=== PATIENT | female | born 1960 | race Caucasian/White ===

== ENCOUNTER → 2020-10-05 10:38 | Outpatient (CLI) | payer OTHER, SELFPAY ==
--- NOTE | ~2020-10-05 | MM_ITS ---
EXAMINATION: MM screening avril BI w emeka HISTORY: Screening TECHNIQUE: Craniocaudal and mediolateral oblique 3-D tomosynthesis images were obtained and synthetic 2-D images were generated. CAD analysis was submitted and interpreted. COMPARISON: Comparison to multiple prior studies sequentially, with oldest reviewed study dated 02/19. BREAST PARENCHYMAL COMPOSITION: The breasts are extremely dense, which lowers the sensitivity of mamm ography. FINDINGS: There is no evidence of suspicious mass, calcification, or architectural distortion to sugg est malignancy in either breast. There has been no suspicious interval change. IMPRESSION: 1. No mammographic evidence of malignancy. 2. Recommend routine screening mammography in one year. BI-RADS Category 1: Negative Reviewed, dictated and finalized at location A.
== END ==
PROVIDERS: PCP Internal Medicine; Visit Provider Nurse Practitioner Obstetrics & Gynecology
DX: Z12.31 Encounter for screening mammogram for malignant neoplasm of breast (principal)
CPT/HCPCS: 77063; 77067

== ENCOUNTER → 2021-11-18 08:49 | Outpatient (CLI) | payer OTHER, SELFPAY ==
--- NOTE | ~2021-11-18 | MR_ITS ---
EXAMINATION: MR ankle LT wo con DATE: 11/18/2021 09:31 INDICATION: Posterior tibial tendinitis. Pain in the arch of left foot x2 3 months. No trauma. TECHNIQUE: Magnetic resonance imaging (MRI) of the left ankle was performed without intravenous contr ast. Sequences included sagittal PD-weighted FS FSE, sagittal PD-weighted FSE, coronal PD-weighted FS FSE, coronal PD-weighted FSE, axial PD-weighted FS FSE, and axial PD-weighted FSE. COMPARISON: None. FINDINGS: Medial ankle ligaments: Intact. Lateral ankle ligaments: Intact. Tendons: Longitudinal split type tear of the peroneus brevis, with distal thinning. Fluid within the posterior tibial tendon at the level of the medial malleolus and navicular. The posterior tibial tendon is int act. Remaining dorsi and plantar flexor tendons are normal in appearance. Plantar fascia: Plantar enthesopathy. Proximal thickening of the plantar fascia. Bones/other: No significant marrow edema. No suspicious focal or infiltrative marrow signal. Mild arthritic change in multiple midfoot joints. Fluid: No significant joint or subcutaneous fluid. IMPRESSION: 1. Mild posterior tibial tenosynovitis. 2. Split type tear of the peroneus brevis tendon. 3. Mild midfoot arthritis. 4. Chronic plantar fascial changes. Reviewed, dictated and finalized at location K.
== END ==
PROVIDERS: PCP Internal Medicine; Visit Provider Podiatrist Foot & Ankle Surgery
DX: M76.822 Posterior tibial tendinitis, left leg (principal); M19.072 Primary osteoarthritis, left ankle and foot; M72.2 Plantar fascial fibromatosis; M65.872 Other synovitis and tenosynovitis, left ankle and foot
CPT/HCPCS: 73721

== ENCOUNTER → 2021-12-13 15:29 | Outpatient (CLI) | payer OTHER, SELFPAY ==
--- NOTE | ~2021-12-13 | MM_ITS ---
EXAMINATION: MM screening avril BI w emeka HISTORY: Screening mammogram TECHNIQUE: Craniocaudal and mediolateral oblique 3-D tomosynthesis images were obtained and synthetic 2-D images were generated. Bilateral rotated lateral CC views. CAD analysis was submitted and interp reted. COMPARISON: 10/05/2020, 05/07/2019, 04/05/2018 bilateral screening mammogram examinations BREAST PARENCHYMAL COMPOSITION: The breasts are heterogeneously dense, which may obscure small masses . FINDINGS: There is no evidence of suspicious mass, calcification, or architectural distortion to sugg est malignancy in either breast. There has been no suspicious interval change. IMPRESSION: 1. No mammographic evidence of malignancy. 2. Recommend routine screening mammography in one year. BI-RADS Category 1: Negative Reviewed, dictated and finalized at location A.
--- NOTE | ~2021-12-13 | DEXA_ITS ---
Bone Density Report Name: YAZAN ROBERTS Age: 61 Sex: Female Ethnicity: White Date of : 1960 Indication: postmenopausal; screening for osteoporosis; height loss; Referring Provider: Hilda, Giuliana Espinal Study: Bone densitometry was performed. Exam Date: December 13, 2021 Accession number: [id number] Bone Density: Region BMD T-score Z-score Classification AP Spine (L2, L3, L4) 1.104 0.2 1.8 Normal Femoral Neck (Left) 0.834 -0.1 1.2 Normal Total Hip (Left) 1.019 0.6 1.7 Normal Femoral Neck (Right) 0.909 0.5 1.9 Normal Total Hip (Right) 1.072 1.1 2.1 Normal Total Hip Mean 1.046 0.9 1.9 Normal World Health Organization criteria for BMD impression classify patients as: Normal (T-score at or above -1.0), Osteopenia (T-score between -1.0 and -2.5), or Osteoporosis (T-score at or below -2.5). 10-year Fracture Risk: FRAX not reported because: All T-scores for Spine Total, Hip Total, Femoral Neck at or above -1.0 Previous Exams: Region Exam Age BMD T-score BMD Change BMD Change Date g/cm2 vs Baseline vs Previous AP Spine(L2, L3, L4) 12/13/2021 61 1.104 0.2 -0.003 -0.069 05/07/2019 58 1.172 0.8 0.066* 0.052* 03/13/2017 56 1.121 0.4 0.014 0.014 09/30/2010 49 1.106 0.2 Total Hip(Left) 12/13/2021 61 1.019 0.6 -0.034 0.040 05/07/2019 58 0.979 0.3 -0.074* -0.040* 03/13/2017 56 1.019 0.6 -0.034* -0.034* 09/30/2010 49 1.053 0.9 Total Hip(Right) 12/13/2021 61 1.072 1.1 -0.008 0.029 05/07/2019 58 1.043 0.8 -0.037* -0.021 03/13/2017 56 1.063 1.0 -0.017 -0.017 09/30/2010 49 1.080 1.1 *Denotes significance at 95% confidence level, LSC for AP Spine = 0.022 g/cm2, LSC for Total Hip = 0.027 g/cm2 Clinical Information Provided by Patient: Has used the following medications: Vitamin D, MTV Patient maximum height was 68.0 Menopause Age: 55 Drinks caffeinated beverages Onset of menses at age 10 Number of children 0 Impression: The patient has normal bone mass. No significant bone loss was observed. Discussion: BONE DENSITY IS ABOVE THE MINIMUM DESIRABLE LEVEL AT ALL SKELETAL SITES TESTED. This patient?s bone mineral density is above the minimum desirable level (T-score -1.0 or better) at all sites measured. The patient should f
== END ==
PROVIDERS: PCP Internal Medicine; Visit Provider Nurse Practitioner Obstetrics & Gynecology
DX: Z12.31 Encounter for screening mammogram for malignant neoplasm of breast (principal); Z78.0 Asymptomatic menopausal state
CPT/HCPCS: 77063; 77067; 77080

== ENCOUNTER → 2023-01-17 12:27 | Outpatient (CLI) | payer OTHER, SELFPAY ==
--- NOTE | ~2023-01-17 | MM_ITS ---
EXAMINATION: MM screening avril BI w emeka HISTORY: Screening mammogram TECHNIQUE: Craniocaudal and mediolateral oblique 3-D tomosynthesis images were obtained and synthetic 2-D images were generated. CAD analysis was submitted and interpreted. COMPARISON: 12/13/2021, 10/05/2020 BREAST PARENCHYMAL COMPOSITION: The breasts are heterogeneously dense, which may obscure small masses . FINDINGS: No suspicious mass, calcification, or architectural distortion are identified in either gelacio ast to suggest malignancy. There has been no suspicious interval change. IMPRESSION: 1. No mammographic evidence of malignancy. 2. Recommend routine screening mammography in one year. BI-RADS Category 1: Negative Reviewed, dictated and finalized at location A.
== END ==
PROVIDERS: PCP Internal Medicine; Visit Provider Nurse Practitioner Obstetrics & Gynecology
DX: Z12.31 Encounter for screening mammogram for malignant neoplasm of breast (principal)
CPT/HCPCS: 77063; 77067

== ENCOUNTER 2024-01-14 01:11 | Day surgery (SDC) | payer OTHER, SELFPAY ==
--- NOTE | 2024-01-07 14:41 | PC.NURSE ---
Addendum entered by Finesse Barron RN 01/08/24 12:57: Do not take Losartan day of surgery. Original Note: Report to the Outpatient Waiting Room, entrance under the green pavilion located off [facility], at time _1130_ on date _01/14/24__. Planned Procedure Time: _1330__. Time changes happen often and if your time is changed the preop area will call you the afternoon before. - You and your visitor will be asked to self-screen and do not enter if you have any COVID symptoms. - A mask is optional within the hospital at this time. Patients may have clear liquids (water, carbonated beverages, clear teas, apple juice) until 3 hours prior to surgery with a maximum of 20 ounces. - No food from midnight until time of surgery - Infants may have breast milk until 4 hours before surgery, formula 6 hours prior to surgery. - Children will be allowed to drink immediately following surgery. If applicable, please bring a bottle or sippy cup to assist with drinking. Juice, water, soda, and popsicles are readily available. For infants on formula, please bring formula the day of surgery. Pacifiers are allowed. Take the following medications with a SIP of water the morning of surgery: _Bupropion, Sertraline, and losartan___ DO NOT STOP ANY OF YOUR OTHER PRESCRIPTION MEDICATIONS PRIOR TO SURGERY ?EXCEPT THE FOLLOWING Medications to discontinue per physician _Stop vit D3 and MV on 01/11/24___ Date to take last dose Please no make-up, nail irish, hairspray, perfume, deodorant, or body powder the day of surgery. No jewelry (including any body piercings) or valuables the day of surgery, leave them at home. Please take a shower or bath the night before, or the morning of, surgery with an antibacterial soap. Wear comfortable, loose fitting clothing. Children are encouraged to wear pajamas. - Jewelry must be removed prior to entering the operating room. Rings and piercings that are not removed may be cut off. - The hospital will not accept responsibility for valuables. - Please leave all valuables, including medications, at home the day of surgery. If you are going home after surgery, a licensed route delivery driver must drive you home. - NO public transportation without another adult if you receive anesthesia. - We recommend that an adult stay with you for 24 hours following discharge. - We also recommend that you do not drive, make important decision, drink alcoholic beverages, or take any drugs that were not prescribed by your health care provider for at least 24 hours after your discharge time. For Pediatric surgeries, we recommend two adults accompany the child home. Follow any additional instructions given to you from your surgeon. If you or anyone in your household have experienced Covid symptoms in the past week, please notify your surgeon or the nurse liaison at the phone number below for possible testing. Telephone instructions given to _Gail_and asked if any additional questions and then verbalized understanding. Patient advised to call surgeon office or pre surgery nurse liaison [phone] if any additional questions.
[2024-01-07 14:48] VITALS: BMI 39.0
[2024-01-14 11:40] VITALS: BP 172/78; PULSE 69; RESP 16; TEMP 36.5; O2SAT 98
--- NOTE | 2024-01-14 11:58 | WPDHPUPDATE1 ---
History and Physical Update Update Date/Time: 01/14/24 11:58 History and Physical has been reviewed, including an updated exam of the patient. There are NO changes in the patient's condition. Risks, benefits, and alternatives have been discussed and questions answered. Patient agrees to proceed with procedure.
--- NOTE | 2024-01-14 12:17 | WPDANESEPPF ---
Anes - Initial Pre Proc Eval Procedure: Operation Date: 01/14/24 13:30 Proposed Procedures p Excision Back Cyst - Daryn Priest DO Date/Time: 01/14/24 12:17 Surgeon: Daryn Priest DO Pre Op Diagnosis: 3.5cm sebaceous cyst of back Patient Data Age: 63 Gender: F Height: 1.7 m Weight: 110.6 kg Last Vital Signs Temp 97.7 F 01/14/24 11:40 Pulse 69 01/14/24 11:40 Resp 16 01/14/24 11:40 BP 172/78 H 01/14/24 11:40 Pulse Ox 98 01/14/24 11:40 O2 Del Method Room Air 01/14/24 11:40 Allergies Allergy/AdvReac Type Severity Reaction Status Date / Time Penicillins Allergy Mild RASH Verified 01/14/24 11:51 Sulfa (Sulfonamide Allergy Mild HIVES Verified 01/14/24 11:51 Antibiotics) Home Medications Medication Instructions Recorded Confirmed Type bupropion HCl 150 mg 24 hr tablet, 150 mg PO BID 12/20/23 01/07/24 History extended release cholecalciferol (vitamin D3) 25 25 mcg PO DAILY 12/20/23 01/07/24 History mcg (1,000 unit) capsule losartan 50 mg tablet 50 mg PO DAILY 12/20/23 01/07/24 History multivitamin 1 tablet PO DAILY 12/20/23 01/07/24 History nifedipine 30 mg tablet,extended 30 mg PO DAILY 12/20/23 01/07/24 History release pantoprazole 40 mg tablet,delayed 40 mg PO QAM 12/20/23 01/07/24 History release potassium 99 mg tablet 99 mg PO DAILY 12/20/23 01/08/24 History rosuvastatin 10 mg tablet 10 mg PO DAILY 12/20/23 01/07/24 History sertraline 100 mg tablet 100 mg PO DAILY 12/20/23 01/07/24 History Patient hx anesthesia problems: none Family hx anesthesia problems: none Results Review: All pre-operative results and documents have been reviewed as part of the pre-operative evaluation. FORMERLY [facility] Past Medical History Medical History Allergies Anxiety GERD (gastroesophageal reflux disease) Hypertension Surgical History Surgical History History of left knee replacement 2018 Family History Family History Other Cancer Heart disease Social History Social History Smoking status: Never smoker Alcohol intake: current Alcohol use details: Once a month Substance use: never Living arrangements: with family Spiritual care concerns: No Anes - Eval Final PreProcedure Day of Procedure 01/14/24 12:17 Patient weight: obese Heart: regular rate and rhythm Lungs: clear to auscultation Airway: Mallampati scale class III Neurological: alert and oriented Last oral intake: >/= 8 hours ASA classification: III Emergent: no Anesthetic plan: proceed Anesthesia type and monitoring: general GIVS (may use LMA) and standard monitoring Results Review: All pre-operative results and documents have been reviewed as part of the pre-operative evaluation. Informed Consent: The patient's anesthetic plan and its attendant risks and benefits were discussed with the patient/family/POA. Questions were solicited and answers provided to the satisfaction of the patient/family/POA.
[2024-01-14] MEDS: LACTATED RINGERS 1,000 ML 30 ML IV CONT (12:23)
[2024-01-14 12:30] VITALS: BP 172/78; PULSE 69; RESP 16; TEMP 36.5; O2SAT 98
[2024-01-14] MEDS: ceFAZolin 2 GM/D5W 50 ML 2 GM/50 ML BAG IVPB (13:06)
[2024-01-14] MEDS: LIDO 1%/EPINEPHRINE/PF 1:200,000 30 ML VIAL 10 ML XX (13:20)
[2024-01-14] MEDS: BACITRACIN OINTMENT 15 GM TUBE 1 APPLIC TOPICAL (13:26)
[2024-01-14 13:34] VITALS: BP 123/59; PULSE 86; RESP 16; O2SAT 96
--- NOTE | 2024-01-14 13:35 | W.PM.PROC2 ---
Procedure Note - Detailed Date of Procedure 01/14/24 Pre-op Diagnosis 3.5cm sebaceous cyst of back Post-op Diagnosis Same Procedure Performed Excision of 3.5 cm back cyst Surgeon Daryn Priest, DO Anesthesia MAC and Local (1% lidocaine with epinephrine) Indications This is a 63-year-old woman who presented with a back cyst. About 3 weeks ago she noticed increasing swelling of a small lump and it began turning red and painful. She was found to have an abscess within the cyst which was incised and drained in the office. After this wound healed discussions were made with the patient about options of excision of the cyst versus continued observation. Decision was made to proceed with excision of 3.5 cm back cyst. Findings The 3.5 cm back cyst was completely excised. There appeared to be an old indurated area of scarring and cyst wall within the subcutaneous tissue. No other deeper abnormalities were noted. The cyst was excised completely and sent to the lab for pathology. Description of Procedure Procedure as well as risks, benefits, and alternatives were discussed with the patient. Written consent was obtained and placed in chart prior to procedure. Patient was brought back to surgical suite. She was placed in left lateral decubitus position on the operating table. Time-out was done to confirm patient and procedure. IV sedation was administered by the anesthesia department. Her back area was prepped and draped in sterile fashion using chlorhexidine prep. 1% lidocaine with epinephrine was infiltrated locally around the cyst. A 3.5 cm elliptical incision was made to encompass the entire cyst using 15 blade scalpel. The cyst was sharply excised completely using a 15 blade scalpel. It was removed and sent to the lab for pathology. The wound bed was then inspected. Hemostasis was achieved with electrocautery. No other abnormalities were noted. The skin edges were then reapproximated using 3-0 nylon simple interrupted sutures. Bacitracin ointment was applied followed by 4 x 4 gauze and tape. The patient was then awakened from anesthesia and transferred to recovery. Estimated Blood Loss 5 Pathology Yes (Back cyst) Complications No immediate complications Condition Stable Disposition Same day [facility] Billing Surgery - Charge Forward: Surgery Billing
[2024-01-14 14:00] VITALS: BP 162/65; PULSE 63
[2024-01-14 14:30] VITALS: BP 160/69; PULSE 66; RESP 18
== END 2024-01-14 14:43 | disposition home or self-care (01) ==
PROVIDERS: PCP Internal Medicine; Visit Provider Surgery
PROC: (CPT 11404; principal; 2024-01-14 13:30)
DX: L72.3 Sebaceous cyst (principal); I10 Essential (primary) hypertension; F41.9 Anxiety disorder, unspecified; K21.9 Gastro-esophageal reflux disease without esophagitis; E66.9 Obesity, unspecified; Z68.38 Body mass index [BMI] 38.0-38.9, adult; Z98.890 Other specified postprocedural states; Z80.9 Family history of malignant neoplasm, unspecified; Z82.49 Family history of ischemic heart disease and other diseases of the circulatory system
CPT/HCPCS: 11404; 88305; A9270; J0690; J2704; J3010; J7120

== ENCOUNTER 2024-01-22 01:15 | Day surgery (SDC) | payer OTHER, SELFPAY ==
[2024-01-15 09:24] VITALS: BMI 38.0
--- NOTE | 2024-01-15 09:48 | SUR.PREOP ---
Report to the Outpatient Waiting Room, entrance under the green pavilion located off [facility], at time _0730_ on date _01/22/2024_. Planned Procedure Time: __929__.? Time changes happen often and if your time is changed the preop area will call you the afternoon before. - You and your visitor will be asked to self-screen and do not enter if you have any COVID symptoms. Please call surgeon if you need to reschedule. - A mask is optional within the hospital at this time. Patients may have clear liquids (water, carbonated beverages, clear teas, apple juice) until 3 hours prior to surgery with a maximum of 20 ounces. - No food from midnight until time of surgery and no smoking - Infants may have breast milk until 4 hours before surgery, infant formula 6 hours prior to surgery. - Children will be allowed to drink immediately following surgery.? If applicable, please bring a bottle or sippy cup to assist with drinking. Juice, water, soda, and popsicles are readily available.? For infants on formula, please bring formula the day of surgery.? Pacifiers are allowed. Take only the following medications with a SIP of water on the morning of surgery: _nifedipine, bupropion, sertraline_ DO NOT STOP ANY OF YOUR OTHER PRESCRIPTION MEDICATIONS PRIOR TO SURGERY EXCEPT THE FOLLOWING Medications to discontinue per physician _vitamin D and multivitamin_ Date to take last dose__01/19/2024___ Please no make-up, nail macedonian, hairspray, perfume, deodorant, or body powder the day of surgery.? No jewelry (including any body piercings) or valuables the day of surgery, leave them at home.? Please take a shower or bath the night before, or the morning of, surgery with an antibacterial soap.? Wear comfortable, loose fitting clothing.? Children are encouraged to wear pajamas. - Jewelry must be removed prior to entering the operating room.? Rings and piercings that are not removed may be cut off. - The hospital will not accept responsibility for valuables.? - Please leave all valuables, including medications, at home the day of surgery. If you are going home after surgery, a licensed lift driver must drive you home.? - NO public transportation without another adult if you receive anesthesia. - We recommend that an adult stay with you for 24 hours following discharge. - We also recommend that you do not drive, make important decision, drink alcoholic beverages, or take any drugs that were not prescribed by your health care provider for at least 24 hours after your discharge time. For Pediatric surgeries, we recommend two adults accompany the child home. Follow any additional instructions given to you from your surgeon. Telephone instructions given to _GAIL_and asked if any additional questions and then verbalized understanding. Patient advised to call surgeon office or pre surgery nurse liaison [phone] if any additional questions.
[2024-01-22 08:00] VITALS: BP 151/71; PULSE 94; RESP 14; TEMP 36.1; O2SAT 96
[2024-01-22] MEDS: LACTATED RINGERS 1,000 ML 30 ML IV CONT (08:00)
[2024-01-22] MEDS: ACETAMINOPHEN 500 MG TABLET 1000 MG PO (08:00)
--- NOTE | 2024-01-22 08:51 | PM.IMHP ---
H&P: HPI History of Present Illness Date/Time: 01/22/24 08:51 Chief Complaint: Vaginal bleeding Narrative: this patient is a 63 with postmenopausal bleeding and thickened endometrium. We have agreed to perform hysteroscopy D&C. The patient understands the details of the procedure. The procedure has been explained in detail. She understands the risks. She understands that injuries may occur that result in hospitalization, more surgery, and severe illness. She understands risk of hemorrhage and infection. She denies any chest pain or shortness of breath. She denies any nausea, vomiting, fever, chills. Review of Systems Review of Systems: All systems reviewed & are unremarkable except as noted in HPI and below Constitutional: Constitutional: Denies chills, Denies fatigue, Denies fever(s) and Denies weakness Eyes: Eyes: Denies blurry vision, Denies change in vision, Denies loss of peripheral vision, Denies loss of vision, Denies other visual disturbances and Denies eye pain ENT: Denies vertigo, Denies dizziness, Denies hearing loss, Denies mouth pain, Denies nasal obstruction, Denies neck mass and Denies neck pain Cardiovascular: Cardiovascular: Denies chest pain, Denies diaphoresis, Denies syncope, Denies leg edema and Denies dyspnea Respiratory: Respiratory: Denies chest congestion, Denies cough, Denies hemoptysis, Denies dyspnea and Denies wheezing Gastrointestinal: Gastrointestinal: Denies abdominal pain, Denies constipation, Denies diarrhea, Denies nausea and Denies vomiting Genitourinary: Genitourinary: Denies hematuria, Denies change in libido, Denies nocturia, Denies genital lesions, Denies flank pain and Denies urinary urgency Musculoskeletal: Musculoskeletal: Denies abnormal gait, Denies back pain, Denies myalgias, Denies arthralgias, Denies joint swelling, Denies muscle weakness and Denies neck pain Integumentary/Breasts: Skin/Breast: Denies swelling, Denies breast pain, Denies breast mass, Denies dry skin, Denies nipple discharge, Denies unusual bruising and Denies jaundice Neurologic: Denies Neuro-related abnormal movements, Denies Abnormal speech present, Denies abnormal gait, Denies behavioral changes, Denies confusion, Denies vertigo, Denies dizziness, Denies syncope, Denies loss of vision, Denies memory loss, Denies convulsions and Denies weakness Psychiatric: Psychiatric: Denies abnormal sleep pattern, Denies behavioral changes, Denies change in libido, Denies confusion, Denies depression, Denies anhedonia and Denies memory loss Endocrine: Endocrine: Reports no additional endocrine complaints, Denies change in libido and Denies fatigue Hematologic/Lymphatic: Hematologic/Lymphatic: Reports no additional hematologic/lymphatic complaints Allergic/Immunologic: Allergic/Immunologic: Reports no additional allergic/immunologic complaints and Denies wheezing PMFSH Past Medical History Medical History Allergies Anxiety GERD (gastroesophageal reflux disease) Hypertension Surgical History Surgical History History of left knee replacement 2018 Family History Family History Other Cancer Heart disease Social History Social History Smoking status: Never smoker Second hand tobacco smoke exposure: No Alcohol intake: current Alcohol use details: 1 a month Substance use: never Substance use type: does not use Living arrangements: with family Additional living arrangements comments: ([place]) Spiritual care concerns: No Meds Home Medications and Allergies Home Medications Medication Instructions Recorded Confirmed Type bupropion HCl 150 mg 24 hr tablet, 150 mg PO BID 12/20/23 01/22/24 History extended release cholecalciferol (vitamin D3) 25 25 mc
--- NOTE | 2024-01-22 08:54 | WPDHPUPDATE1 ---
History and Physical Update Update Date/Time: 01/22/24 08:54 History and Physical has been reviewed, including an updated exam of the patient. There are NO changes in the patient's condition. Risks, benefits, and alternatives have been discussed and questions answered. Patient agrees to proceed with procedure.
--- NOTE | 2024-01-22 09:11 | WPDANESEPPF ---
Anes - Initial Pre Proc Eval Procedure: Operation Date: 01/22/24 09:30 Proposed Procedures p Hysteroscopy with Biopsy of Endometrium and/or Polypectomy - Luis Fernando Zambrano MD Date/Time: 01/22/24 09:11 Surgeon: Luis Fernando Zambrano MD Pre Op Diagnosis: thickened endometrium Patient Data Age: 63 Gender: F Height: 1.7 m Weight: 110.6 kg Last Vital Signs Temp 96.9 F L 01/22/24 08:00 Pulse 94 01/22/24 08:00 Resp 14 01/22/24 08:00 BP 151/71 H 01/22/24 08:00 Pulse Ox 96 01/22/24 08:00 O2 Del Method Room Air 01/22/24 08:00 Allergies Allergy/AdvReac Type Severity Reaction Status Date / Time Penicillins Allergy Mild RASH Verified 01/22/24 08:10 Sulfa (Sulfonamide Allergy Mild HIVES Verified 01/22/24 08:10 Antibiotics) Home Medications Medication Instructions Recorded Confirmed Type bupropion HCl 150 mg 24 hr tablet, 150 mg PO BID 12/20/23 01/22/24 History extended release cholecalciferol (vitamin D3) 25 25 mcg PO DAILY 12/20/23 01/15/24 History mcg (1,000 unit) capsule losartan 50 mg tablet 50 mg PO DAILY 12/20/23 01/15/24 History multivitamin 1 tablet PO DAILY 12/20/23 01/15/24 History nifedipine 30 mg tablet,extended 30 mg PO DAILY 12/20/23 01/15/24 History release pantoprazole 40 mg tablet,delayed 40 mg PO QAM 12/20/23 01/15/24 History release rosuvastatin 10 mg tablet 10 mg PO DAILY 12/20/23 01/15/24 History sertraline 100 mg tablet 100 mg PO DAILY 12/20/23 01/22/24 History chlorthalidone 25 mg tablet 25 mg PO DAILY 01/22/24 01/22/24 History Patient hx anesthesia problems: none Family hx anesthesia problems: none Results Review: All pre-operative results and documents have been reviewed as part of the pre-operative evaluation. [facility] Past Medical History Medical History Allergies Anxiety GERD (gastroesophageal reflux disease) Hypertension Surgical History Surgical History History of left knee replacement 2018 Family History Family History Other Cancer Heart disease Social History Social History Smoking status: Never smoker Second hand tobacco smoke exposure: No Alcohol intake: current Alcohol use details: 1 a month Substance use: never Substance use type: does not use Living arrangements: with family Additional living arrangements comments: ([place]) Spiritual care concerns: No Anes - Eval Final PreProcedure Day of Procedure 01/22/24 09:11 Patient weight: obese Heart: regular rate and rhythm Lungs: clear to auscultation Airway: Mallampati scale class II Neurological: alert and oriented Last oral intake: >/= 8 hours ASA classification: III Emergent: no Anesthetic plan: proceed Anesthesia type and monitoring: general GIVS (may use LMA) Results Review: All pre-operative results and documents have been reviewed as part of the pre-operative evaluation. Informed Consent: The patient's anesthetic plan and its attendant risks and benefits were discussed with the patient/family/POA. Questions were solicited and answers provided to the satisfaction of the patient/family/POA.
[2024-01-22] MEDS: LIDOCAINE HCL 1% LOCAL INJ 10 ML VIAL INFILTRATE (09:16)
[2024-01-22 09:56] VITALS: BP 150/82; PULSE 104; RESP 16; O2SAT 96
--- NOTE | 2024-01-22 10:07 | W.PM.PROC2 ---
Procedure Note - Detailed Date of Procedure 01/22/24 Pre-op Diagnosis thickened endometrium Post-op Diagnosis Same ( With submucosal and pedunculated fibroids within the intrauterine cavity) Procedure Performed Hysteroscopy D&C Surgeon Luis Fernando Zambrano MD Anesthesia MAC Indications abnormal uterine bleeding Findings there was 1 large pedunculated fibroid within the intrauterine cavity. It measured about a cm and half. Two submucosal fibroids a smaller size. About 1 cm each. Normal vulva, vagina, cervix. Description of Procedure the patient was taken the operating room. She was prepped and draped in the dorsal lithotomy position after induction of mac anesthesia. A speculum was placed in the vagina. The cervix was grasped with a tenaculum. The cervix was dilated about 1 cm. The hysteroscope was inserted. The intrauterine cavity and endocervix were evaluated. Rotational blade was then used to clear now debris and to transect the stalk of the large uterine fibroid. It would not morcellate the fibroid. Pedunculated fibroid was removed with polyp forceps. Hysteroscope was withdrawn. A medium-size curette was used to curettage all the surfaces were within the endometrial cavity. the sample was collected on Telfa and sent to pathology. The hysteroscope was reinserted and the above findings were noted. Patient tolerated the procedure well. The speculum and tenaculum were removed. She was taken recovery room in stable condition. Sponge lap and needle counts were correct x2. Estimated Blood Loss 40 Drains No Packing No Pathology Yes Complications No immediate complications Condition Stable Disposition PACU
[2024-01-22] MEDS: oxyCODONE HCL (*CRX) 5 MG TAB IR PO (10:25)
[2024-01-22 10:26] VITALS: BP 151/73; PULSE 74; RESP 16
--- NOTE | 2024-01-22 10:48 | W.PM.PROC2 ---
Procedure Note - Detailed Date of Procedure 01/22/24 Pre-op Diagnosis thickened endometrium Post-op Diagnosis Same (Endometrial polyp) Procedure Performed Hysteroscopy D&C, polypectomy Surgeon Luis Fernando Zambrano MD Anesthesia MAC Indications abnormal uterine bleeding Findings 1.5 cm flat , posterior wall polyp. otherwise normal endometrium, normal vulva, vagina, cervix. Description of Procedure the patient was taken the operating room. She was prepped and draped in the dorsal lithotomy position after induction of mac anesthesia. A speculum was placed in the vagina. The cervix was grasped with a tenaculum. The cervix was dilated about 1 cm. The hysteroscope was inserted. The intrauterine cavity and endocervix were evaluated. Rotational blade was inserted in the posterior or uterine wall polyp was resected Hysteroscope was withdrawn. A medium-size curette was used to curettage all the surfaces were within the endometrial cavity. the sample was collected on Telfa and sent to pathology. The hysteroscope was reinserted and the above findings were noted. Patient tolerated the procedure well. The speculum and tenaculum were removed. She was taken recovery room in stable condition. Sponge lap and needle counts were correct x2. Estimated Blood Loss 15 Drains No Packing No Pathology Yes Complications No immediate complications Condition Stable Disposition PACU
[2024-01-22 10:56] VITALS: BP 109/61; PULSE 66; RESP 16
== END 2024-01-22 11:11 | disposition home or self-care (01) ==
PROVIDERS: PCP Internal Medicine; Visit Provider Obstetrics & Gynecology
PROC: 0U5B8ZZ Destruction of Endometrium, Via Natural or Artificial Opening Endoscopic (ICD-10-PCS; CPT 58563; principal; 2024-01-22 09:30)
DX: D25.0 Submucous leiomyoma of uterus (principal); N84.0 Polyp of corpus uteri; N95.0 Postmenopausal bleeding; I10 Essential (primary) hypertension; K21.9 Gastro-esophageal reflux disease without esophagitis; F41.9 Anxiety disorder, unspecified; E66.9 Obesity, unspecified; Z68.38 Body mass index [BMI] 38.0-38.9, adult
CPT/HCPCS: 58558; 88305; A9270; J2250; J2405; J2704; J3010; J7120

== ENCOUNTER 2024-03-31 13:44 | Outpatient (CLI) | payer OTHER, SELFPAY ==
--- NOTE | ~2024-03-31 | MR_ITS ---
EXAMINATION: MR knee RT wo con DATE: 03/31/2024 14:16 INDICATION: Acute onset right knee pain TECHNIQUE: Magnetic resonance imaging (MRI) of the right knee was performed without intravenous contr ast. Sequences included coronal PD-weighted FSE, coronal PD-weighted FS FSE, sagittal T2-weighted FS E, sagittal PD-weighted FS FSE and axial PD weighted fat saturated FSE. COMPARISON: None. FINDINGS: Medial compartment: There is medial extrusion of the medial meniscal body. There is increased intrasubstance signal in th e body the medial meniscus which is not amenable to contact the articular surface to meet criteria fo r meniscal tear but which would be consistent with mucoid degeneration. There is partial thickness ch ondral ulceration along the anterior to central weightbearing medial femoral condyle. There is deep c hondral fissuring at the medial side of the junction of the central to posterior weightbearing medial femoral condyle with small focus of underlying subarticular edema-like signal change. Shallow chondr al ulceration at the central to anterior aspect of the medial tibial plateau. Lateral compartment: Lateral meniscus is normal. Deep chondral fissuring without degenerative subchondral changes at the c entral aspect lateral tibial plateau and along the anterior weightbearing lateral femoral condyle. Patellofemoral compartment: Deep chondral ulceration and fissuring live small foci of subarticular edema-like signal change at th e medial patellar facet and apical ridge. Less severe partial thickness chondral fissuring without de generative subchondral changes at the medial side of the lateral patellar facet. Deep chondral ulcera tion with underlying cortical irregularity and prominent subarticular edema-like signal change at the lateral trochlea and trochlear groove and with additional subarticular cystlike change at the medial trochlea. Ligaments and tendons: Anterior and posterior cruciate ligaments are normal. The medial collateral ligament and fibular violeta ateral ligament complex are normal. Tolerated tendon is normal. Mild distal quadriceps tendinopathy w ithout tear. The visualized medial and lateral hamstring tendons as well as the iliotibial band are n ormal. Fluid: Small right knee joint effusion. No loose osteochondral bodies identified. Moderate to large Tolentino's cyst measuring 6.2 cm craniocaudally and 1.7 x 1.8 cm in maximal orthogonal dimensions. Osseous/other: Bone alignment is normal. No fracture or pathologic marrow replacing process. Subcutaneous varicositi es most prominent anterior and medial to the knee and distal thigh. IMPRESSION: 1. Mild medial extrusion of the medial meniscal body with mucoid degeneration but without definitive distal tear. 2. Mild tricompartmental osteoarthritis with regions of high-grade chondromalacia in the medial and p atellofemoral compartments and moderate to high-grade chondromalacia at the lateral compartment. The latter. Moderate to large Tolentino's cyst. Reviewed, dictated and finalized at location B. [employer] IMPRESSION: 1. Mild medial extrusion of the medial meniscal body with mucoid degeneration b ut without definitive distal tear. 2. Mild tricompartmental osteoarthritis with regions of high-grade chondromalac ia in the medial and patellofemoral compartments and moderate to high-grade cho ndromalacia at the lateral compartment. The latter. Moderate to large Tolentino's c yst.
== END 2024-03-31 13:45 | disposition home or self-care (01) ==
LOC: MICIMG 13:45
DX: M17.11 Unilateral primary osteoarthritis, right knee (principal)
CPT/HCPCS: 73721

== ENCOUNTER 2024-09-11 14:02 | Outpatient (CLI) | payer OTHER, SELFPAY ==
--- NOTE | ~2024-09-11 | MM_ITS ---
EXAMINATION: MM screening avril BI w emeka HISTORY: Screening TECHNIQUE: Craniocaudal and mediolateral oblique 3-D tomosynthesis images were obtained and synthetic 2-D images were generated. CAD analysis was submitted and interpreted. COMPARISON: Comparison to multiple prior studies sequentially, with oldest reviewed study dated 02/19. BREAST PARENCHYMAL COMPOSITION: Dense: The breasts are extremely dense, which lowers the sensitivity of mammography. FINDINGS: There are developing asymmetries centered in the lower inner quadrant of the right breast, middle third and medial aspect of the left breast on CC view. There are no suspicious calcifications or architectural distortion. IMPRESSION: 1. Developing bilateral breast asymmetries. 2. Additional mammographic views and possible breast ultrasound are recommended. BI-RADS Category 0: Incomplete: Needs additional imaging evaluation. Reviewed, dictated and finalized at location A. IMPRESSION: 1. Developing bilateral breast asymmetries. 2. Additional mammographic views and possible breast ultrasound are recommended . BI-RADS Category 0: Incomplete: Needs additional imaging evaluation.
== END 2024-09-11 14:03 | disposition home or self-care (01) ==
LOC: MICIMG 14:03
PROVIDERS: PCP Internal Medicine; Visit Provider Nurse Practitioner
DX: Z12.31 Encounter for screening mammogram for malignant neoplasm of breast (principal); R92.8 Other abnormal and inconclusive findings on diagnostic imaging of breast
CPT/HCPCS: 77063; 77067

== ENCOUNTER 2024-10-02 08:56 | Outpatient (CLI) | payer OTHER, SELFPAY ==
--- NOTE | ~2024-10-02 | MMUS_ITS ---
EXAMINATION: US breast BI complete, MM diagnostic avril BI w emeka HISTORY: Follow-up breast asymmetries TECHNIQUE: Additional 3-D tomosynthesis images of the breasts were performed and synthetic 2-D images were generated. CAD analysis was submitted and interpreted. High resolution bilateral complete breas t ultrasound was performed. COMPARISON: Comparison to multiple prior studies sequentially, with oldest reviewed study dated 03/21. BREAST PARENCHYMAL COMPOSITION: Dense: The breasts are heterogeneously dense, which may obscure small masses FINDINGS: MAMMOGRAPHIC FINDINGS: There are no suspicious masses, calcifications or architectural distortion in either breast to sugges t malignancy. ULTRASOUND: Complete US of all 4 quadrants of the breast/s and retroareolar region was reviewed. There are bilate ral breast cysts. At 5:00 in the right breast, 2 cm from the nipple there is an oval circumscribed pa rallel oriented hypoechoic 9 mm mass without internal vascularity or posterior features, likely benig n. IMPRESSION: 1. Probable benign right breast mass at 5:00, 2 cm from the nipple. 2. Recommend 6 month follow-up Limited right breast ultrasound. BI-RADS category 3, probably benign findings. Reviewed, dictated and finalized at location A. IMPRESSION: 1. Probable benign right breast mass at 5:00, 2 cm from the nipple. 2. Recommend 6 month follow-up Limited right breast ultrasound. BI-RADS category 3, probably benign findings.
== END 2024-10-02 08:57 | disposition home or self-care (01) ==
LOC: MICIMG 08:56
PROVIDERS: PCP Internal Medicine; Visit Provider Nurse Practitioner
DX: R92.2 Inconclusive mammogram (principal)
CPT/HCPCS: 76641; 77062; 77066; G0279

== ENCOUNTER 2024-11-11 10:03 | Outpatient (CLI) | payer MEDICARE, SELFPAY ==
--- NOTE | ~2024-11-11 | US_ITS ---
EXAMINATION TYPE: US breast RT limited COMPARISON: 10/02/2024 REASON FOR STUDY: N63.13 - Unspecified lump in the right breast, lower oute... TECHNIQUE: Targeted sonographic evaluation of the right breast was performed. INTERPRETATION: At the 7:00-o'clock position right breast contents aneurysm level, there is a 3.5 x 1.3 x 2.7 cm para llel isoechoic somewhat masslike area, which could reflect prominent fibroglandular tissue versus pos sibly lipoma. IMPRESSION: 3.5 x 1.3 x 2.7 cm area of prominent fibroglandular tissue versus possibly lipoma. No suspicious mass seen. BI-RADS CATEGORY: BI-RADS 2: Benign Reviewed, dictated and finalized at location . IMPRESSION: 3.5 x 1.3 x 2.7 cm area of prominent fibroglandular tissue versus possibly lipo ma. No suspicious mass seen. BI-RADS CATEGORY: BI-RADS 2: Benign
== END 2024-11-11 10:04 | disposition home or self-care (01) ==
LOC: MICIMG 10:05
PROVIDERS: PCP Internal Medicine; Visit Provider Surgery
DX: N63.13 Unspecified lump in the right breast, lower outer quadrant (principal)
CPT/HCPCS: 76642

== ENCOUNTER 2025-04-06 09:33 | Outpatient (CLI) | payer MEDICARE, SELFPAY ==
--- NOTE | ~2025-04-06 | MR_ITS ---
MR breast BI wo/w con INDICATION:64 year old female with elevated lifetime risk of breast cancer presents for high-risk screening bilateral breast MRI. Most recent screening mammogram and diagnostic right breast mammogram suggests a probably benign right breast mass at 5:00 for which a short-term follow-up in 6 months with right breast ultrasound was recommended. TECHNIQUE: MRI of the breasts perform using standard protocol pre-and post IV contrast with the following sequences: Axial T2 STIR, axial T1, axial vibrant T1 with fat suppression precontrast and multiphasic postcontrast. 20 cc MultiHance administered intravenously. COMPARISON: Mammogram and ultrasound dated 10/02/2024 and 11/11/2024. FINDINGS: There is Heterogeneous fibroglandular tissue that demonstrates Mild and is Symmetric. Right breast: There are no abnormalities on the precontrast sequences. There is extensive background parenchymal nodular enhancement pattern. No enhancing spiculated lesions following contrast administration. No areas of enhancement meeting threshold criteria on CAD analysis. Nipple areolar complex is normal in appearance. No evidence of signal abnormalities in the axillary or internal mammary node distributions. LEFT BREAST: No signal abnormalities on precontrast sequences. There is marked background parenchymal nodular enhancement pattern. No enhancing spiculated lesions following contrast administration. No areas of enhancement meeting threshold criteria on CAD analysis. The nipple areolar complex is normal in appearance. No evidence of signal abnormalities in the axillary or internal mammary node distributions.] IMPRESSION: 1: Right breast: No MRI evidence of malignancy. There is no MRI correlate to the area of concern on the right breast ultrasound study 2. Left breast: Negative. No evidence of malignancy. 3. Extensive bilateral background parenchymal nodular enhancement pattern which decreases the sensitivity of MRI. This finding is probably benign and short-term follow-up is advised. 4. The chest wall and axillary portion of the examination unremarkable. RECOMMENDATION: Follow-up bilateral breast MR in 6 months is advised. There is also an existing recommendation for 6 month follow-up right breast ultrasound. BI-RADS 3, PROBABLY BENIGN Reviewed, dictated and finalized at location C. [employer] IMPRESSION: 1: Right breast: No MRI evidence of malignancy. There is no MRI correlate to t he area of concern on the right breast ultrasound study 2. Left breast: Negative. No evidence of malignancy. 3. Extensive bilateral background parenchymal nodular enhancement pattern which decreases the sensitivity of MRI. This finding is probably benign and short-te rm follow-up is advised. 4. The chest wall and axillary portion of the examination unremarkable. RECOMMENDATION: Follow-up bilateral breast MR in 6 months is advised. There is also an existing recommendation for 6 month follow-up right breast ult rasound. BI-RADS 3, PROBABLY BENIGN
== END 2025-04-06 09:34 | disposition home or self-care (01) ==
LOC: ANHIMG 09:34
PROVIDERS: PCP Internal Medicine; Visit Provider Surgery
DX: N63.14 Unspecified lump in the right breast, lower inner quadrant (principal); N63.13 Unspecified lump in the right breast, lower outer quadrant; R92.8 Other abnormal and inconclusive findings on diagnostic imaging of breast
CPT/HCPCS: 77049; A9577; C8908

== ENCOUNTER 2025-05-08 01:04 | Day surgery (SDC) | payer MEDICARE, SELFPAY ==
[2025-04-22 11:53] VITALS: BMI 33.8
--- OUTSIDE RECORDS SUMMARY | 2025-05-08 01:07 | XMS_ITS | Data Portability ---
Author Organization [facility] Address [address] [place] [place] [address] Care Team Providers Care Implementation Advisor Name Role Phone OLIVIA GALINDO Primary Care Provider [phone] Assessment Encounter Date Assessment Date Assessment LastModified by Organization Details LastModified Time 11/01/2022 11/01/2022 Annual gynecological exam performed. Patient will come back in a year unless there are new symptoms. Not available 11/01/2022 12:15:48 12/04/2023 12/04/2023 Annual gynecological exam performed. Patient will come back in a year unless there are new symptoms. [email or web address] Not available 12/03/2023 11:21:46 Plan of Treatment Reminders Order Date Submit Date Provider Last Modified By Organization Details Last Modified Time Details Appointments None recorded. Lab None recorded. Referral None recorded. Procedures None recorded. Surgeries hysteroscop y, surgical, with biopsy of endometrium and/or polypectomy (SURG) 2023 [email or web address] [place] [address], [address], [place], [address], 4 11:26:42 Imaging US, pelvis 2023 024 [email or web address] [place], [address], [place], [address], 18:40:25 US, transvagina l 2023 024 [email or web address] [place], [address], [place], [address], 4 18:40:25 US, pelvis, complete 2023 024 [facility], [address], [address], [place], [address], 5 05:01:33 MAMMO, screening, digital, bilateral 2023 024 [facility], [address], [place], [address], 5 05:01:33 MAMMO, screening, bilateral 2022 023 [facility], [address], [place], [address], 3 16:39:47 Medication Orders None recorded. Patient TargetsNo targets recorded. Patient InstructionsNo instructions recorded. Reason for Referral None Reported. Results Created Date Observation Date Name Description Value Unit Range Abnormal Flag Note LastModifiedBy Organization Detail LastModifiedTime 12/04/19 24 12/04/2023 IMAGE GUIDE D PAP AND HPV REGAR DLESS image guided Pap, HPV regardless of Pap result SEE RESULT S BELOW CASE REPOR T: Cytol ogy Gynec ologi josé antonio Repor t Case: [id number]hes Provi adeline: Maribel Soto, NUSRAT Colle cted: 12/03 1205 Order ing Locat ion: [place] [facility] Recei felipe: 12/04 0141 First Scree n: Carlie Jackson ret, CT Speci men: Scree asia Pap - Image d, Cervi x STATE MENT OF ADEQU ACY: Satis facto ry for evalu ation Trans forma tion zone compo nent prese nt ----- ----- ----- ----- ----- ----- ----- ----- ----- ----- ----- ----- ----- ----- ----- ----- ----- ---- FINAL DIAGN OSIS: Negat mercedes for Intra epith elial Lesio andria or Sridevi gaviria (NIL) . Elect josep gallagher d by Carlie Jackson ret, CT on 2023 at 6:58 AM ----- ----- ----- ----- ----- ----- ----- ----- ----- ----- ----- ----- ----- ----- ----- ----- ----- ---- HPV RESUL TS: HPV mRNA E6/E7 : No HPV mRNA Detec tyler NOTE: This high risk HPV mRNA assay detec ts fourt een high- risk HPV types (16, 18, 31, 33, 35, 39, 45, 51, 52, 56, 58, 59, 66, 68) witho ut diffe renti ation . COMME NT: This speci men was revie wed by a Cytot echno logis t and/o r Patho logis t (as indic ated in this repor t) after evalu ation using the Thinp rep Imagi ng Syste m. CLINI JOSÉ ANTONIO INFOR MATIO N: Menst rual Statu s: LMP (if appli cable ): Clini josé antonio Histo ry/Pr eviou s Pap: Type of Neopl ugo (if appli cable ): Signi fican t Clini josé antonio Findi ngs: Other Histo ry: Hormo daina (if appli cable ): PAP EDUCA TAYLOR L NOTE: The Pap Test is a scree asia test with an inher ent false negat mercedes rate. Liqui d-bas ed sampl ing may decre ase, but will not elimi sylvain, false negat mercedes resul ts. A negat mercedes resul t does not precl ude the prese nce and/o r devel opmen t of disea se, since the prese nce of abnor mal cells in the sampl e depen ds on the locat ion of the lesio n and sampl ing techn ique. Jose nued regul ar scree asia is the best metho d of cance r preve ntion . If repor tyler cytol ogic findi ng do not corre late with physi josé antonio and/o r histo rical findi ngs, furth er inves tigat ion is recom juan d, as clini rachel warra nted. Not Available [facility] (Lab) [address], [place], [address], 12/08/2023 08:02:55 01/19/20 23 01/17/2023 MAMMO , scree asia, bilat eral No observ ation record ed. [facility] [address], [place], [address], 01/23/2023 18:44:38 12/05/19 24 12/05/2023 US, pelvi s No observ ation record ed. [facility] [address], [place], [address], 12/05/2023 13:46:26 12/05/19 24 12/05/2023 US, trans vagin al No observ ation record ed. [facility] [address], [place], [address], 12/05/2023 13:46:38 12/05/19 24 12/05/2023 US, pelvi s No observ ation record ed. bayron Patterson [address], [place], [address], 12/06/2023 11:45:12 09/12/19 25 09/11/2024 MAMMO , scree asia, digit al, bilat eral No observ ation record ed. [address] [facility] [address], [place], [address], 09/12/2024 13:05:38 09/13/19 25 09/11/2024 MAMMO , scree asia, digit al, bilat eral No observ ation record ed. [place] [facility] [address], [place], [address], 09/12/2024 13:05:38 10/03/19 25 10/02/2024 MAMMO , diagn ostic , digit al, bilat eral No observ ation record ed. [place] [facility] [address], [place], [address], 10/29/2024 15:34:09 Result Notes None recorded. Problems Name Problem SNOMED Code Status Onset Date Resolution Date Notes Provider Name and Address Organization Details Recorded Time Microsco pic hematuri a 929072650 Completed 201007/18/2021 HEMATURI A MICROSCO PIC;Prac lne ID: 0001 Hollie Stubbs [facility] 2 16:04:18 Atypical glandula r cells on cervical Papanico laou smear 513666543 Completed 201007/18/2021 Pap Abnormal Endocerv Endometr ial Edmundo;Pra ctice ID: 0001 Hollie Stubbs [facility] 2 16:04:07 Pregnanc y test negative [id number] Completed 201007/18/2021 Negative Pregnanc y Test;Pra ctice ID: 0001 Hollie Stubbs [facility] 2 16:04:21 Backache 661642829 Completed 201007/18/2021 Backache , unspecif ied;Prac len ID: 0001 Hollie Stubbs [facility] 2 16:04:10 Abnormal cervical Papanico laou smear 488611909 Completed 201007/18/2021 Other abnormal papanico laou smear of cervix and cervical HPV;Anibal rded Elsewher e: No Locat ion: Donna senior [facility] S ource: EHR Air Quality Engineer sadaf: N Practi ce ID: 0001 Aaron lable Time: 09:30:00 AM Hollie Stubbs [facility] 2 16:04:02 Dysmenor heron [id number] Completed 201007/18/2021 Dysmenor heron;Rec orded Elsewher e: No Locat ion: [facility] S ource: EHR Air Quality Engineer sadaf: N Practi ce ID: 0001 Aaron lable Time: 09:30:00 AM Hollie Stubbs [facility] 2 16:04:13 Atypical glandula r cells on vaginal Papanico laou smear 827913012 Completed 201007/18/2021 ABN GLAND PAP SMR VAGINA;P ractice ID: 0001 Hollie Stubbs [facility] 2 16:04:08 Screenin g for malignan t neoplasm of cervix Completed 201107/18/2021 Screenin g for malignan t neoplasm s of the cervix;R ecorded Elsewher e: No Locat ion: [facility] S ource: EHR Air Quality Engineer sadaf: N Rochelleti ce ID: 0001 Aaron lable Time: 11:00:00 AM Hollie Stubbs [facility] 2 16:04:23 Speciali zed medical examinat ion Completed 201207/18/2021 Gynecolo gical Examinat ion;Anibla rded Elsewher e: No Locat ion: [facility] S ource: EHR Air Quality Engineer sadaf: N Practi ce ID: 0001 Aaron lable Time: 01:00:00 PM Hollie Stubbs [facility] 2 16:04:30 Adult health examinat ion Completed 201207/18/2021 Routine Medical Exam;Rec orded Elsewher e: No Locat ion: [facility] S ource: EHR Air Quality Engineer sadaf: N Rochelleti ce ID: 0001 Aaron lable Time: 01:00:00 PM Hollie Stubbs [facility] 2 16:04:03 Leukocyt osis [id number] Completed 201307/18/2021 LEUKOCYT OSIS NOS;Anibal rded Elsewher e: No Locat ion: [facility] S ource: EHR Air Quality Engineer sadaf: N Practi ce ID: 0001 Aaron lable Time: 03:00:00 PM Hollie Stubbs [facility] 2 16:04:16 Blood leukocyt e number above referenc e range [id number] Completed 201507/18/2021 Elevated white blood cell count, unspecif ied;Anibal rded Elsewher e: No Locat ion: [facility] S ource: EHR Air Quality Engineer sadaf: N Practi ce ID: 0001 Aaron lable Time: 11:15:00 AM Hollie Stubbs [facility] 2 16:04:14 Atrophic vaginiti s [id number] Completed 201507/18/2021 Postmeno pausal atrophic vaginiti s;Record ed Elsewher e: No Locat ion: [facility] S ource: EHR Air Quality Engineer sadaf: N Practi ce ID: 0001 Aaron lable Time: 11:15:00 AM Hollie Stubbs [facility] 2 16:04:05 Evaluati on finding Completed 201507/18/2021 Oth abn and inconclu sive findings on dx imaging of breast;R ecorded Elsewher e: No Locat ion: [facility] S ource: EHR Air Quality Engineer sadaf: N Practi ce ID: 0001 Aaron lable Time: 12:32:04 PM Hollie Stubbs [facility] 2 16:04:11 Screenin g for malignan t neoplasm of rectum Completed 201607/18/2021 Encounte r for screenin g for malignan t neoplasm of rectum;R ecorded Elsewher e: No Locat ion: Jordyn parrish [facility] S ource: EHR Air Quality Engineer sadaf: N Practi ce ID: 0001 Aaron lable Time: 01:30:00 PM Hollie Stubbs [facility] 2 16:04:[address] Concept Completed 201707/18/2021 Encntr for msw exam (general ) (routine ) w/o abn findings ;Recorde d Elsewher e: No Locat ion: Jordyn parrish [facility] S ource: EHR Air Quality Engineer sadaf: N Practi ce ID: 0001 Aaron lable Time: 10:30:00 AM Hollie Stubbs [facility] 2 16:04:[address] Concept Completed 201807/18/2021 Encntr for general adult medical exam w/o abnormal findings ;Recorde d Elsewher e: No Locat ion: [facility] S ource: EHR Air Quality Engineer sadaf: N Practi ce ID: 0001 Aaron lable Time: 10:30:00 AM Hollie Stubbs [facility] 2 16:04:27 Hyperten sive disorder 31735306 Active 2023 Leatha Williamson [facility] 4 11:22:09 Mixed anxiety and depressi ve disorder 868255664 Active 2023 Leatha Williamson [facility] 4 11:22:31 Problem Notes None recorded. Procedures Surgical History Date Name Laterality Status Provider Name and Address Organization Details Recorded Time 01/22/20 24 HYSTEROSCOPY, SURGICAL, WITH BIOPSY OF ENDOMETRIUM AND/OR POLYPECTOMY (SURG) completed Aleshia Medrano [facility] 01/22/2024 12:02:52 12/04/19 24 Date of Last Pap Smear completed Aleshia Medrano [facility] 12/13/2023 17:00:13 01/18/20 23 Date of Last Mammogram completed Aleshia Medrano [facility] 12/04/2023 12:21:32 08/19/19 23 Date of Last Colonoscopy completed Nhung Alberts [facility] 10/18/2022 17:08:36 08/19/19 23 Colonoscopy completed Leatha Williamson [facility] 01/29/2024 11:25:42 12/28/19 22 Endometrial Biopsy completed Giuliana Stevens, [facility]- [address], [place], [address], [facility] 12/27/2021 12:33:34 12/14/19 22 Most Recent Bone Density completed Leatha Williamson [facility] 02/05/2024 19:05:34 05/21/19 19 Colonoscopy completed Leatha Williamson [facility] 01/29/2024 11:31:35 05/21/19 19 total knee replacement completed Leatha Williamson [facility] 01/29/2024 11:30:15 05/21/19 07 Colonoscopy completed Leatha Williamson [facility] 02/05/2024 19:07:28 05/21/19 03 [facility]24 19:07:45 05/21/18 99 Colonoscopy completed Leatha Williamson [facility] 02/05/2024 19:08:18 05/21/18 91 procedure on knee completed Leatha Williamson [facility] 02/05/2024 19:09:35 05/21/18 90 [facility] 02/05/2024 19:10:21 05/21/18 90 Laparoscopy completed Leathaanni Williamson [facility] 01/29/2024 11:30:03 05/21/18 90 biopsy of breast completed [facility] 02/05/2024 19:10:15 05/21/18 88 Colonoscopy completed [facility] 02/05/2024 19:08:28 05/21/18 87 procedure on knee completed [facility] 02/05/2024 19:08:59 05/21/18 86 procedure on knee completed [facility] 02/05/2024 19:09:05 05/21/18 86 procedure on knee completed [facility] 02/05/2024 19:08:51 05/21/18 86 Dilation and Curettage completed [facility] 02/05/2024 19:11:13 05/21/18 85 procedure on knee completed [facility] 02/05/2024 19:08:46 05/21/18 84 Colonoscopy completed [facility] 02/05/2024 19:08:31 05/21/18 80 Breast Biopsy completed [facility] 02/05/2024 19:09:59 05/21/18 80 Breast Biopsy completed [facility] 02/05/2024 19:09:53 Laparoscopy completed [facility] 02/05/2024 19:10:47 Imaging Results None recorded. Procedure Notes None recorded. Medical Equipment None Reported. Allergies Allergen ID Allergen Name Allergen Category Reaction Reaction Severity Criticality Documentation Date Start Date Code Code System Note Provider Name and Address Organization Details Recorded Time 27678 sulfameth oxazole medicatio n hives Not available Not available 05/07/2020 43451 RxNorm React ion: hives ; Comme nt: [facility]at [facility]; Not Available [facility] 0 14:17:59 75569 trimethop rim medicatio n hives Not available Not available 05/07/2020 61662 RxNorm React ion: hives ; Comme nt: Locat ion: [facility]; Not Available [facility] 0 14:17:59 39744 Product containin g penicilli n (product) medicatio n rash Not available Not available 05/07/2020 38176 8001 SNOMED React ion: rash; Comme nt: Locat ion: [facility]; Not Available [facility] 0 14:17:59 Medications Name Sig Start Date Stop Date Status Note LastModified by Organization Details LastModified Time losartan 50 mg tablet Take 1 tablet every day by oral route. active Not Available Not Available No t Available nifedipin e ER 30 mg tablet,ex tended release 24 hr TAKE 1 TABLET BY MOUTH EVERY DAY active Not Available Not Available No t Available amoxicill in 500 mg capsule TAKE 1 CAPSULE BY MOUTH TWICE A DAY FOR 10 DAYS 12/02 completed Not Available Not Available Not Available atorvasta tin 40 mg tablet take 1 tablet by oral route every day 03/14 completed Prescrib ed Elsewher e: Yes Loca tion: [facility] odify By: sujata astudillo DateTime : 02/27/20 17 01:30:00 PM Not Available Not Available Not Available bupropion HCl SR 150 mg tablet,12 hr sustained -release TAKE 1 TABLET BY MOUTH TWICE A DAY active Not Available Not Available No t Available doxycycli ne hyclate 100 mg capsule 01/28 completed Not Available Not Available Not Available atorvasta tin 10 mg tablet TAKE 1 TABLET BY MOUTH EVERY DAY active Not Available Not Available No t Available azithromy edouard 250 mg tablet TAKE 2 TABLETS BY MOUTH TODAY, THEN TAKE 1 TABLET DAILY FOR 4 DAYS DIRECTED 12/02 completed Not Available Not Available Not Available meloxicam 15 mg tablet take 1 tablet by oral route every day 03/14 completed Prescrib ed Elsewher e: Yes Loca tion: [facility] odify By: sujata astudillo DateTime : 02/27/20 17 01:30:00 PM Not Available Not Available Not Available sertralin e 100 mg tablet TAKE 1 AND 1/2 TABLETS BY MOUTH DAILY active Not Available Not Available No t Available Zoloft 20 mg/mL oral concentra te take 2.5 millilit er by oral route every day and mix with 4 oz. (1/2 cup) of water, geovani radha, lemon/li me soda, lemonade or orange juice ONLY 10/11 completed Prescrib ed Elsewher e: Yes Loca tion: [facility] odify By: hanny milelr DateTime : 04/17/20 11 07:14:09 PM Not Available Not Available Not Available nifedipin e ER 30 mg tablet,ex tended release TAKE 1 TABLET BY MOUTH EVERY DAY 12/03 completed Not Available Not Available Not Available chlorthal idone 25 mg tablet active Not Available Not Available No t Available ciclopiro x 8 % topical solution USE DAILY ON AFFECTED NAILS,IN S WANTS PA 12/03 completed Not Available Not Available Not Available Vitamin D3 10 mcg (400 unit) tablet active Prescrib ed Elsewher e: Yes Loca tion: [facility] odify By: kulwant astudillo DateTime : 02/27/20 17 01:30:00 PM Not Available Not Available Not Available phenazopy ridine 100 mg tablet TAKE 2 TABLETS ORAL ROUTE 3 TIMES PER DAY FOR 2 DAYS 12/02 completed Not Available Not Available Not Available benzonata te 100 mg capsule TAKE 1 CAPSULE BY MOUTH THREE TIMES A DAY FOR 10 DAYS 12/02 completed Not Available Not Available Not Available pantopraz ole 40 mg tablet,de layed release TAKE 1 TABLET BY MOUTH EVERY DAY active Not Available Not Available No t Available Wellbutri n 75 mg tablet take 1 tablet by oral route 3 times every day 12/16 completed Prescrib ed Elsewher e: Yes Loca tion: [facility] odify By: mike painting DateTime : 04/17/20 11 07:14:09 PM Not Available Not Available Not Available losartan 25 mg tablet TAKE 1 TABLET BY MOUTH EVERY DAY 12/03 completed Not Available Not Available Not Available monteluka st 10 mg tablet take 1 tablet by oral route every day in the evening 03/14 completed Prescrib ed Elsewher e: Yes Loca tion: Donna senior [facility] odify By: sujata astudillo DateTime : 02/27/20 17 01:30:00 PM Not Available Not Available Not Available levofloxa edouard 500 mg tablet TAKE 1 TABLET BY MOUTH EVERY DAY FOR 7 DAYS active Not Available Not Available No t Available Vitamin D2 1,250 mcg (50,000 unit) capsule take 1 capsule by oral route every week 02/21 completed Prescrib ed Elsewher e: No Locat ion: Donna senior [facility] odify By: kulwant astudillo DateTime : 01/09/20 15 12:41:02 PM Not Available Not Available Not Available nifedipin e ER 60 mg tablet,ex tended release TAKE 1 TABLET BY MOUTH EVERY DAY 12/03 completed Not Available Not Available Not Available fluticaso ne propionat e 50 mcg/actua tion nasal spray,vahid pension SHAKE LIQUID AND USE 1 SPRAY IN EACH NOSTRIL EVERY DAY 07/19 completed Not Available Not Available Not Available iron 18 mg tablet 03/14 completed Prescrib ed Elsewher e: Yes Loca tion: Donna senior [facility] odify By: sujata astudillo DateTime : 02/27/20 17 01:30:00 PM Not Available Not Available Not Available Vitamins and Minerals tablet 07/15 completed Prescrib ed Elsewher e: Yes [facility] By: kimi astudillo DateTime : 09/25/19 12 11:00:00 AM Not Available Not Available Not Available Mononessa (28) 0.25 mg-35 mcg tablet take 1 tablet by oral route every day 12/16 completed Prescrib ed Elsewher e: No Locat ion: Donna senior [facility] odify By: mike painting DateTime : 04/19/20 11 09:30:00 AM Not Available Not Available Not Available Premarin 0.625 mg/gram vaginal cream insert 1g by vaginal route every night x14 nights then use twice a week for maintena nce 12/12 completed Not Available Not Available Not Available nitrofura ntoin monohydra te/macroc rystals 100 mg capsule TAKE 1 CAPSULE BY MOUTH EVERY 12 HOURS FOR 10 DAYS 12/02 completed Not Available Not Available Not Available potassium acetate active Not Available Not Available Not Available Zyrtec 10/18 completed Not Available Not Available Not Available Nifedipin e ER 10/18 completed Not Available Not Available Not Available rosuvasta tin 12/16 completed Not Available Not Available Not Available Probiotic 10 billion cell capsule 03/18 completed Prescrib ed Elsewher e: Yes Loca tion: [facility] odify By: dmrose Parrish ncounter DateTime : 02/22/20 16 11:15:00 AM Not Available Not Available Not Available Lo Loestrin Fe 1 mg-10 mcg (24)/10 mcg (2) tablet take 1 tablet by oral route every day 12/28 completed Prescrib ed Elsewher e: No Locat ion: [facility] odify By: [email or web address] Senior ncounter DateTime : 10/21/19 14 02:31:03 PM Not Available Not Available Not Available Multi Vitamin active Not Available Not Available Not Available Vitals Date Recorded Body height Body mass index (BMI) Body weight Systolic And Diastolic Provider Name and Address Organization Details Last Updated DateTime 11/01/2022 167.64 cm 39.1 kg/m2 044307.35 g 132/75 mm[Hg] Nhung Alberts [facility] 11/01/2022 12:16:05 Date Recorded Body height Body mass index (BMI) Body weight Systolic And Diastolic Provider Name and Address Organization Details Last Updated DateTime 12/04/2023 167.64 cm 40.2 kg/m2 416177.5 g 143/56 mm[Hg] [facility] 12/04/2023 12:21:01 Date Recorded Body height Body mass index (BMI) Body weight Systolic And Diastolic Provider Name and Address Organization Details Last Updated DateTime 12/13/2023 167.64 cm 40.5 kg/m2 599754.68 g 142/82 mm[Hg] Aleshia [facility] 12/13/2023 16:56:45 Date Recorded Body height Body mass index (BMI) Body weight Systolic And Diastolic Provider Name and Address Organization Details Last Updated DateTime 01/29/2024 167.64 cm 39.2 kg/m2 629864.95 g 139/76 mm[Hg] Leathaanni Williamson [facility] 01/29/2024 11:21:46 Social History Question Answer Notes LastModified by Organizat ion Details LastModified Time Tobacco Smoking Status Never Smoker Sara Lemus alyssa, [facility] 11/01/2022 12:08:58 Do You Have An Advance Directive? Yes Information n ot available 07/19/2021 How Many Years Have You Consumed Alcohol? 44 [email or web address] Information not available 12/04/2023 Are You Blind Or Do You Have Difficulty Seeing? No Information n ot available 07/19/2021 What Is Your Level Of Caffeine Consumption? Moderate Information not available 07/19/2021 How Much Tobacco Do You Chew? None Information not available 07/19/2021 In The 14 Days Before Symptom Onset, Have You Had Close Contact With A Laboratory-confirm ed COVID-19 While That Case Was Ill? No Information n ot available 07/19/2021 In The 14 Days Before Symptom Onset, Have You Had Close Contact With A Person Who Is Under Investigation For COVID-19 While That Person Was Ill? No Information not available 07/19/2021 Have You Been To An Area Known To Be High Risk For COVID-19? No Information not available 10/18/2022 Are You Deaf Or Do You Have Serious Difficulty Hearing? No Information not available 07/19/2021 What Type Of Diet Are You Following? REGULAR Information n ot available 07/19/2021 What Is The Highest Grade Or Level Of School You Have Completed Or The Highest Degree You Have Received? [id number] Information not available 07/19/2021 Are There Any Guns Present In Your Home? No Information not available 07/19/2021 Do You Use Protection During Sex? No Information not available 07/19/2021 Do You Use Your Seat Belt Or Car Seat Routinely? Yes Information not available 07/19/2021 Do You Have Smoke And Carbon Monoxide Detectors In Your Home? Yes Information not available 07/19/2021 At What Age Did You Start Smoking Tobacco? 0 Information not available 12/16/2021 How Much Tobacco Do You Smoke? No Information not available 07/19/2021 Do You Use Sunscreen Routinely? Yes Information not available 07/19/2021 How Many Years Have You Smoked Tobacco? 0 Information not available 12/16/2021 Have You Used IV Drugs? No Information not available 07/19/2021 Do You Have Difficulty Walking Or Climbing Stairs? No [email or web address] Information not available 11/01/2022 Sex: Unknown Functional Status Question Answer Note LastModified by Organizat ion Details LastModified Time Do you use any illicit or recreational drugs? No Information not available 07/19/2021 What is your level of alcohol consumption? Occasional Information not available 07/19/2021 Are you able to walk independently without assistance or assistive devices? YESWOREST Information not available 07/19/2021 Are you able to care for yourself independently? Yes [email or web address] Information not available 11/01/2022 What is your occupation? retired Information not available 07/19/2021 Do you have difficulty dressing, bathing, grooming, or toileting? No [email or web address] Information not available 11/01/2022 What is your exercise level? Moderate Information not available 07/19/2021 Mental Status Question Answer Note LastModified by Organization D etails LastModified Time Do you feel stressed (tense, restless, nervous, or anxious, or unable to sleep at night)? [id number] Information not available 07/19/2021 Family History Relationship Description Onset Age of this Age Resolved Age Notes LastModified by Organization Details LastModified Time Mother Carcinoma in situ of lung [email or web address] Not available 02/2024 10:22:35 Mother Diabetes mellitus [email or web address] Not available 2020 09:48:38 Maternal Uncle Carcinoma in situ of colon Not available 2023 10:22:35 Maternal Uncle Diabetes mellitus [email or web address] Not available 2020 09:48:38 Maternal Grandmother Carcinoma in situ of colon [email or web address] Not available 2023 10:22:35 Maternal Grandfather Carcinoma in situ of colon [email or web address] Not available 2023 10:22:35 Medical History Condition Response Allergies (Food, seasonal, environmental ) N Other N Drug/Latex Allergies/Reactions Y Blood Transfusion N Breast Cancer N Dermatologic Disorders N Lung Disease N Defects or Inherited Disease N Breast Problem Y Gestational Diabetes N Hematologic disorders N Anesthesia Complications N History of STI N Deep Vein Thrombosis N Polycystic ovary syndrome N Anxiety Disorder Y Autoimmune disease N Arthritis N Polyps N Infertility Y Acid Reflux (GERD) N History of abnormal pap N Cancer N Varicosities N Stroke N Neurologic/Epilepsy N Endometriosis Y High Cholesterol Y Fibromyalgia N Headaches N Kidney Disease N Heart Problems N Thyroid Problems N Kidney or Bladder Problems N GI Problems Y Eating Disorder N Anemia N Art (IVF or FET) N Psychiatric Illness N Ovarian Cancer N Diabetes N Pulmonary (TB, Asthma) N Hepatitis/Liver Disease N No Past Medical History N Eczema N Urinary Tract Infection N Abuse/Domestic Violence N Asthma N Trauma/Violence N Depression/ depression Y Heart Disease N Pre-Eclampsia N Hypertension Y Osteoporosis N Thrombophilias N Gynecological History Statement/Question Response Abnormal Pap N Date of Last Mammogram 01/17/2023 Date of LMP 03/21/2016 Y On BCP's at Conception? N STIs/STDs N Was last menstrual period normal Y HPV Vaccine N Duration of Flow (days) 5 Current Control Method Menopause If Post Menopausal, Age at Menopause 56 Date of Last Colonoscopy 08/18/2022 Frequency of Cycle (Q days) 28 Most Recent Bone Density 12/13/2021 Sexually Active? Y Menses Monthly N Age of first menstrual cycle 10 Date of Last Pap Smear 12/04/2023 Sexual Problems? N LMP Definite Desired Control Method None N Obstetrics History GPAL:G 2 P 0 0 2 0 Type Value Spontaneous 2 Living 0 Total 2 Past Encounters Encounter ID Performer Location Encounter Start Date Encounter Closed Date Diagnosis/Indication Diagnosis SNOMED-CT Code Diagnosis ICD10 Code Diagnosis IMO Codes Diagnosis Note [id number] Giuliana Stevens [facility] [address] [address] 07/15/2020 09:44:25 07/15/2020 11:30:48 Gynecologic examination 25097806 Z01.419 Take Calcium with Vitamin D 12-1500mg daily. Do monthly self breast exams. It is advised to get annual flu shot in the fall and she could obtain at [facility] or [facility] clinic. If you haven't received the Tdap vaccine in the last 10 years you should obtain one as well. Have mammogram yearly, bone density every 2-3 years and colonoscop y every 5-10 years depending on findings and history. Engage in daily exercise of low impact aerobic exercise 45-60 minutes 4-5 times weekly. Avoid tobacco and illicit drugs as well as using moderation with alcohol intake less than 1-2 8 oz beverages daily. This lifestyle behavior pattern will lead to less health conditions and longer life span. If BMI greater than 25 weight watchers or dietary consult advised. Questions have been answered. Patient appears to understand instructio ns, but if you have any further questions call or respond to this email dexa due 2021 Pap/hpv due 2021 Monogamous x 37yrs mammo ordered No issues or concerns this year Elevated blood-pressure reading without diagnosis of hypertension 065774143 R03.0 She will make appt for PCP to evaluate Discussed risks to body of HTN & it's effects. [id number] Giuliana Stevens , [facility] [address] [address] 07/19/2021 11:36:56 07/19/2021 12:51:33 Gynecologic examination [id number] Z01.419 Take Calcium with Vitamin D 12-1500mg daily. Do monthly self breast exams. It is advised to get annual flu shot in the fall and she could obtain at [facility] or [facility] clinic. If you haven't received the Tdap vaccine in the last 10 years you should obtain one as well. Have mammogram yearly, bone density every 2-3 years and colonoscop y every 5-10 years depending on findings and history. Engage in daily exercise of low impact aerobic exercise 45-60 minutes 4-5 times weekly. Avoid tobacco and illicit drugs as well as using moderation with alcohol intake less than 1-2 8 oz beverages daily. This lifestyle behavior pattern will lead to less health conditions and longer life span. If BMI greater than 25 weight watchers or dietary consult advised. Questions have been answered. Patient appears to understand instructio ns, but if you have any further questions call or respond to this email dexa due 2021 Pap/hpv due 2021 Monogamous x 37yrs mammo ordered No issues or concerns this year Postmenopausal state 764 28665 Z78.0 Dyspareunia [id number] N94 .10 Agreeable to trial of Vag-E therapy.Hx reviewed & does not seem to have any contraindi cations to this therapy. Counseled on medication R/B's, Most common side effects, & use. All questions were answered to patient satisfacti on. RTO x 3mos med check [id number] Giuliana Stevens [facility] [address],[place] [address] 12/16/2021 14:00:53 12/16/2021 14:52:32 Postmenopausal bleeding [id number] N95.0 Today we agreed to update TVUS for PMB spotting with a f/u and possible EMBX.Will determine next course of action once these tests/imag ing are completed before returning to Vag-E therapy which she does feel helped vaginal dryness/in tercourse significan tly. Time spent in visit is a total of 15 mins with at least 50% of visit consisting of counseling and review of plan of care. [id number] Luis Fernando Zambrano MD [facility] [address],[place] [address] 12/20/2021 14:48:37 12/20/2021 15:58:31 Postmenopausal bleeding [id number] N95.0 [id number] Giuliana Stevens [facility] [address],[place] [address] 12/27/2021 12:05:41 12/27/2021 12:35:13 Postmenopausal bleeding 83786950 N95.0 See procedure notes (EMBx) Reviewed [employer] orderedEMB x completedM D consult scheduled (lining is >10mm with right adnexal focus). Understand ing verbalized .No further questions. Time spent in visit is a total of 15 mins with at least 50% of visit consisting of counseling and review of plan of care NOT including time spent on procedure. Screening procedure 2012 5006 Z13.9 [id number] Luis Fernando Zambrano MD [place] [address],[place] [address] 01/11/2022 16:20:21 01/11/2022 17:09:41 Postmenopausal bleeding 87106426 N95.0 is a 61-year-ol d female presents for thickened endometriu m. She had normal endometria l biopsy. Her bleeding was a single episode. I do not feel we need to treat for thickened endometriu m. We talked recurrent bleeding and we might do about it. We talked about future evaluation for postmenopa usal bleeding talked about why postmenopa usal bleeding is taken seriously. She will follow up as needed. [id number] Giuliana Stevens [facility] [address],[place] [address] 10/18/2022 16:54:45 10/18/2022 18:25:53 Labial cyst 838339294 N90.7 Left lower labial cyst on inner portion of labia majora.All ergy to PCN/Sulfa. Possible cross PCN rxn with Keflex; will trial doxy. Counseled on medication R/B's, Most common side effects, & use. All questions were answered to patient satisfacti on. Time spent in visit is a total of 15 mins with at least 50% of visit consisting of counseling and review of plan of care. [id number] Giuliana Stevens [facility] [address],[facility] [address] 11/01/2022 12:08:52 11/01/2022 12:37:42 Gynecologic examination 00382306 Z01.419 Z11.51 Take Calcium with Vitamin D 12-1500mg daily. Do monthly self breast exams. It is advised to get annual flu shot in the fall and she could obtain at [facility] or [facility] take care clinic. If you haven't received the Tdap vaccine in the last 10 years you should obtain one as well. Have mammogram yearly, bone density every 2-3 years and colonoscop y every 5-10 years depending on findings and history. Engage in daily exercise of low impact aerobic exercise 45-60 minutes 4-5 times weekly. Avoid tobacco and illicit drugs as well as using moderation with alcohol intake less than 1-2 8 oz beverages daily. This lifestyle behavior pattern will lead to less health conditions and longer life span. If BMI greater than 25 weight watchers or dietary consult advised. Questions have been answered. Patient appears to understand instructio ns, but if you have any further questions call or respond to this emailPap/h pv due age 63yo unless otherwise indicatedS TD Screen declinedGe netic Screen discussedC olon Screen UTD PCPDexa Screen UTD PCPRoutine Labs UTD PCP Screening mammography 24 759438 Z12.31 [id number] JONO Ordoñez [facility] [address] [address] 12/04/2023 12:14:17 12/04/2023 14:00:58 Gynecologic examination 02043416 Z01.419 WWEpap updateddec lined STI screenmamm ogram order givencolon oscopy UTDdexa UTDroutine labs UTD/PCPBP precaution s discussed, encouraged PCP f/u Do monthly self breast exams.It is advised to get annual flu shot in the fall and she could obtain at local pharmacy. If you haven't received the Tdap vaccine in the last 10 years you should obtain one as well.Have mammogram yearly, bone density every 2-5 years and stay up to date on colon cancer screening. Engage in regular exercise. Avoid tobacco and illicit drugs. This lifestyle behavior pattern will lead to less health conditions and longer life span. If BMI greater than 25 dietary consult advised.Qu estions have been answered. Patient appears to understand instructio ns, but if you have any further questions call or respond to this email Postmenopa usal bleeding 34934324 N95.0 Discussed postmenopa usal bleeding which warrants further evaluation pelvic u/s scheduled, discussed possible EMB pending u/swill reach out to pt once u/s is complete and discuss next steps, hold vag-E therapy for nowquestio ns answered, pt verbalized understand ing Time spent in visit is a total of 30 mins with at least 50% of visit consisting of counseling and review of plan of care. Screening for malignant neoplasm of breast 047846013 Z12.39 [id number] Luis Fernando Zambrano MD [place] [address] [address] 12/05/2023 10:38:09 12/05/2023 15:02:21 Postmenopausal bleeding 85765330 N95.0 is a 61-year-ol d female presents for thickened endometriu m. She had normal endometria l biopsy. Her bleeding was a single episode. I do not feel we need to treat for thickened endometriu m. We talked recurrent bleeding and we might do about it. We talked about future evaluation for postmenopa usal bleeding talked about why postmenopa usal bleeding is taken seriously. She will follow up as needed. [id number] Luis Fernando Zambrano MD [place] [address] [address] 12/13/2023 16:51:12 12/15/2023 10:03:21 Endometrium thickened 138897665 R93.89 this patient is a 63-year-ol d female with postmenopa usal bleeding who was evaluated via ultrasound . She has a very thickened endometriu m. We discussed the evaluation of the endometriu m. We discussed CV methods by which she was evaluated. We agreed to hysterosco py D and C at the hospital. I explained the procedure the patient in detail. Spent over 20 minutes with the patient and in her care in total. We made a decision to perfor m surgery. I explained the procedure to her in great detail she understand s there is risk. She understand s the injuries may occur that results in hospitaliz ation, more surgery, and severe illness. She understand s the risk of hemorrhage and infection. She has completed theiformed consent process and i [id number] Luis Fernando Zambrano MD [place] [address] [address] 01/29/2024 10:22:25 01/29/2024 12:24:07 Postoperative care [id number] Z48.89 63-year-ol d female presents for postop follow-up. Patient had resection of endometria l polyp in the operating room. Was benign. Just some spotting still. We will continue to watch her bleeding. If her bleeding persists we will treat. She is recovering normally. Health Concerns Section Related Observation LastModified by Organization Detai ls LastModified Time None Recorded Concern Status LastModified by Organization Details LastModified Time None Recorded Advance Directives Directive Y: Payers Insurance Date Sequence Insurance Name Policy Number Policy Weems Covered Member ID Weems Member ID Guarantor Name 10/13/2022 1 [employer] (PPO) [id number] Fawad Kim [id number] Steffi Villarreal Kim 02/09/2024 1 [employer] [id number] Fawad Cárdenas Kim [id number] [facility] Notes Date Note Type Note Provider Name and Address Organization Details Recorded Time 3 text/html Annual Software Lead Post-MenopausalReported by PatientGenitourinary symptomsFor menopausal symptoms, patient reportsno menopausal symptomsandnormal vaginal lubrication. For vaginal bleeding, patient reportshistory of menopause having occurredandno history of post menopausal bleeding. For urinary symptoms, patient reportsno hematuria,no incontinence,no nocturia, andno urinary frequency. For vulva, patient reportsno genital lesionandno vulvar atrophy. For vagina, patient reportsnormal vaginal dischargeandno vaginal atrophy.Breast symptomsFor breast, patient reportsno breast lump,no nipple discharge, andno breast pain.Psychological symptomsFor sexual complaints, patient reportsno sexual complaints. For psychological symptoms, patient reportsno depressionandno anxiety.Preventative measuresFor preventive measures, patient reportsencourage regular mammograms starting age 40,encourage self breast examination,encourage regular exercise,encourage no tobacco use,needs to schedule mammogram, andhistory of recent colonoscopy. Giuliana Stevens, [facility]- [address], [place], [address], [facility] 11/01/2022 12:37:13 4 text/html Annual Software Lead Post-MenopausalReported by PatientGenitourinary symptomsFor vaginal bleeding, patient reportsunexplained vaginal bleedingandpost menopausal bleeding. For menopausal symptoms, patient reportsno menopausal symptomsandnormal vaginal lubrication. For urinary symptoms, patient reportsno hematuria,no incontinence,no nocturia, andno urinary frequency. For vulva, patient reportsno genital lesionandno vulvar atrophy. For vagina, patient reportsnormal vaginal dischargeandno vaginal atrophy.Breast symptomsFor breast, patient reportsno breast lump,no nipple discharge, andno breast pain.Psychological symptomsFor sexual complaints, patient reportsno sexual complaints. For psychological symptoms, patient reportsno depressionandno anxiety.Preventative measuresFor preventive measures, patient reportsencourage regular mammograms starting age 40,encourage self breast examination, andencourage regular exercise.63yo WWEno h/o abnormal papslast pap 07/2021 : nilm, HPV (-)postmenopausal since age 54mammogram last olonoscopy UTDdexa last A with steady male partneruses premarin vaginal cream twice per week Noticed vaginal bleeding when wiping 2 days ago. Happened throughout the day and then stopped. None sincehad postmenopausal bleeding in 2021, EMB benign JONO Ordoñez [address], [place], [address], [facility] 12/04/2023 13:59:46 4 text/html this patient is a 63-year-old female with postmenopausal bleeding who was evaluated via ultrasound. She has a very thickened endometrium. We discussed the evaluation of the endometrium. We discussed CV methods by which she was evaluated. We agreed to hysteroscopy D and C at the hospital. I explained the procedure the patient in detail. Spent over 20 minutes with the patient and in her care in total. We made a decision to perfor m surgery. I explained the procedure to her in great detail she understands there is risk. She understands the injuries may occur that results in hospitalization, more surgery, and severe illness. She understands the risk of hemorrhage and infection. She has completed theiformed consent process and i Luis Fernando Zambrano MD [address], [place], [address], [facility] 12/14/2023 23:12:17 4 text/html 63-year-old female presents for postop follow-up. Patient had resection of endometrial polyp in the operating room. Was benign. Just some spotting still. We will continue to watch her bleeding. If her bleeding persists we will treat. She is recovering normally. Luis Fernando Zambrano MD [address], [place], [address], [place] [facility] 01/29/2024 11:57:13 OBGyn Episode Ob Episode Information Episode Created Date Number of Fetuses Patient Bloodtype Patient rh Status Prepregnancy Weight lbs Domestic Partner Domestic Partner Phone Father Name Fios Line Installer Status 07/20/19 22 1 CLOSED Fetus Data First Name Last Name Admitted to NICU Weight (g) Sex Living Outcome Pediatric Complications Fetus ID Race Codes Race Delivery Type , Spontane ous [id number] Len Calculation Initial Len Date Initial Exam Date Initial Exam Provider Initial Ultrasound Date Last Menstrual Period Date Ultra Sound Weeks Gestation 0 Eighteen To Twenty Week Len Update Ultra Sound Date Fundal Height At Umbil Quickening Date Ultra Sound Latest Weeks Gestation Final Len Confirmed By Final Len Confirmed Date Final Len Date Ultra Sound Latest Days Gestation 0 0 Menstrual History Last Menstrual Date Menses Monthly On Bcp Conception Prior Menses Frequency Hcg Plus Date Menarche Onset Age Delivery Information Delivery Date Delivery Type Labor Anesthesia Weeks Gestation Incision Type Labor Labor Length Hrs Delivered By Post Complications Tubal Sterilization Discharge Date Comments 8 Discharge Information Feeding Method Contraceptive Method Maternal HG B and HCT Levels Ob Episode Information Episode Created Date Number of Fetuses Patient Bloodtype Patient rh Status Prepregnancy Weight lbs Domestic Partner Domestic Partner Phone Father Name Fios Line Installer Status 07/20/19 22 1 CLOSED Fetus Data First Name Last Name Admitted to NICU Weight (g) Sex Living Outcome Pediatric Complications Fetus ID Race Codes Race Delivery Type , Spontane ous [id number] Len Calculation Initial Len Date Initial Exam Date Initial Exam Provider Initial Ultrasound Date Last Menstrual Period Date Ultra Sound Weeks Gestation 0 Eighteen To Twenty Week Len Update Ultra Sound Date Fundal Height At Umbil Quickening Date Ultra Sound Latest Weeks Gestation Final Len Confirmed By Final Len Confirmed Date Final Len Date Ultra Sound Latest Days Gestation 0 0 Menstrual History Last Menstrual Date Menses Monthly On Bcp Conception Prior Menses Frequency Hcg Plus Date Menarche Onset Age Delivery Information Delivery Date Delivery Type Labor Anesthesia Weeks Gestation Incision Type Labor Labor Length Hrs Delivered By Post Complications Tubal Sterilization Discharge Date Comments 6 Discharge Information Feeding Method Contraceptive Method Maternal HG B and HCT Levels
--- OUTSIDE RECORDS SUMMARY | 2025-05-08 01:07 | XMS_ITS | Data Portability ---
Author Organization [id number], Main Office Address [address] [place] [address] Assessment Encounter Date Assessment Date Assessment LastModified by Organization Details LastModified Time 08/29/2022 08/29/2022 Pantoprazole 40 mg daily see me in 3 weeks Not available 10/01/2022 15:25:17 09/21/2022 09/21/2022 Continue current therapy see me in 3 months with blood work for chronic medical problems evaluation prior [email or web address] Not available 09/21/2022 15:28:48 12/21/2022 12/21/2022 CBC CMP lipid BNP complete echo cut the nifedipine ER down at 30 mg increase the losartan to 50 mg see me in 3 weeks [email or web address] Not available 12/21/2022 23:09:04 01/16/2023 01/16/2023 Complete the echo see me in 3 months [email or web address] Not available 01/16/2023 21:46:40 04/17/2023 04/17/2023 Continue current therapy follow-up in 4 months [email or web address] Not available 04/28/2023 15:40:44 Plan of Treatment Reminders Order Date Submit Date Provider Last Modified By Organization Details Last Modified Time Details Appointments None recorded. Lab BNP (B-type natriuretic peptide), serum or plasma 2022 023 cyahl Not available 4 11:03:50 CBC w/ auto diff 2022 023 DIONY Not available 3 14:02:00 lipid panel, serum 2022 023 DIONY Not available 3 14:59:52 CMP, serum or plasma 2022 023 DIONY Not available 3 14:59:57 HbA1c (hemoglobin A1c), blood 2022 023 cyahl Not available 3 12:04:39 CMP, serum or plasma 2022 023 DIONY Not available 3 13:18:20 lipid panel, serum 2022 023 DIONY Not available 3 13:18:22 Referral None recorded. Procedures None recorded. Surgeries None recorded. Imaging US, echocardiog yudith - no auth required 2022 023 [facility], [address] [place] [address] [place] [address], [id number], 3 17:19:31 Medication Orders nifedipine ER 30 mg tablet,exte nded release 24 hr [id number], [address] [place] [address], [id number], 3 23:08:22 losartan 50 mg tablet [id number], [address] [place] [address], [id number], 3 14:26:48 pantoprazol e 40 mg tablet,darren yed release [address], [address] [place] [address], [id number], 3 15:25:05 Patient TargetsNo targets recorded. Patient InstructionsNo instructions recorded. Reason for Referral None Reported. Results Created Date Observation Date Name Description Value Unit Range Abnormal Flag Note LastModifiedBy Organization Detail LastModifiedTime 12/14/19 23 12/13/2022 COMPR EHENS DIAMOND METAB OLIC PANEL sodium 140 mmol/ L 137-14 5 Not Available [facility] (Lab) [address] [place], [address], 12/13/2022 13:18:20 12/14/19 23 12/13/2022 COMPR EHENS DIAMOND METAB OLIC PANEL potassium 4.2 mmol/ L 3.5-5. 1 Not Available [facility] (Lab) [address] [place], [address], 12/13/2022 13:18:20 12/14/19 23 12/13/2022 COMPR EHENS DIAMOND METAB OLIC PANEL chloride 104 mmol/ L 98-107 Not Available [facility] (Lab) [address] [place], [address], 12/13/2022 13:18:20 12/14/19 23 12/13/2022 COMPR EHENS DIAMOND METAB OLIC PANEL carbon dioxide 26 mmol/ L 22-30 Not Available [facility] (Lab) [address] [place], [address], 12/13/2022 13:18:20 12/14/19 23 12/13/2022 COMPR EHENS DIAMOND METAB OLIC PANEL anion gap 14.2 mmol/ L 14-22 Not Available [facility] (Lab) [address] [place], [address], 12/13/2022 13:18:20 12/14/19 23 12/13/2022 COMPR EHENS DIAMOND METAB OLIC PANEL glucose 113 mg/dL 70-99 high Not Available [facility] (Lab) [address] [place], [address], 12/13/2022 13:18:20 12/14/19 23 12/13/2022 COMPR EHENS DIAMOND METAB OLIC PANEL BUN 21 mg/dL 8-19 high Not Available [facility] (Lab) [address] [place], [address], 12/13/2022 13:18:20 12/14/19 23 12/13/2022 COMPR EHENS DIAMOND METAB OLIC PANEL creatinine 0.94 mg/dL 0.66-1 .25 Not Available [facility] (Lab) [address] [place], [address], 12/13/2022 13:18:20 12/14/19 23 12/13/2022 COMPR EHENS DIAMOND METAB OLIC PANEL GFR 60 Refer ence Range : [facility] GFR Healt hy Adult : >60 mL/mi n/1.7 3 m2 Chron ic Kidne y Disea se: 15-60 mL/mi n/1.7 3 m2 Kidne y Failu re: <15/m L/min /1.73 m2 www.n iddk. nih.g ov The MDRD study equat ion has not been valid ated in child naomi <18 years of age; pregn ant women ; the elder ly >85 years of age; or in some racia l or ethni c subgr oups, such as Hispa nics. Outsi de the valid ated sujit eters , estim ated GFR is less accur ate, requi ring clini josé antonio judgm ent on a case- by-ca se basis . Clini josé antonio inter preta tion for other races and ages must be made by the clini augusto. The MDRD study equat ion has not been valid ated for the evalu ation of serum creat inine relat ed to nutri argelia l statu s or medic ation usage . For perso ns <18 years of age, a pedia tric GFR calcu lator is avail able on the [facility] websi te: https ://kathe w.manjeet simmons.o rg/pr michaeless chinaal s/kdo qi/gf r_cal culat or Not Available [facility] (Lab) [address] [place], [address], 12/13/2022 13:18:20 12/14/19 23 12/13/2022 COMPR EHENS DIAMOND METAB OLIC PANEL alkaline phosphatase 63 U/L 38-126 Not Available [facility] (Lab) [address] [place], [address], 12/13/2022 13:18:20 07/26/20 23 12/13/2022 COMPR EHENS DIAMOND METAB OLIC PANEL alanine aminotransfe rase 24 U/L 0-35 Not Available [facility] (Lab) [address] [place], [address], 12/13/2022 13:18:20 12/14/19 23 12/13/2022 COMPR EHENS DIAMOND METAB OLIC PANEL aspartate aminotransfe rase 30 U/L 15-37 Not Available [facility] (Lab) [address] [place], [address], 12/13/2022 13:18:20 12/14/19 23 12/13/2022 COMPR EHENS DIAMOND METAB OLIC PANEL bilirubin, total 0.60 mg/dL 0.20-1 .30 Not Available [facility] (Lab) [address] [place], [address], 12/13/2022 13:18:20 12/14/19 23 12/13/2022 COMPR EHENS DIAMOND METAB OLIC PANEL calcium 9.3 mg/dL 8.4-10 .2 Not Available [facility] (Lab) [address] [place], [address], 12/13/2022 13:18:20 12/14/19 23 12/13/2022 COMPR EHENS DIAMOND METAB OLIC PANEL total protein 7.4 g/dL 6.3-8. 2 Not Available [facility] (Lab) [address] [place], [address], 12/13/2022 13:18:20 12/14/19 23 12/13/2022 COMPR EHENS DIAMOND METAB OLIC PANEL albumin 4.5 g/dL 3.0-4. 4 high Not Available [facility] (Lab) [address] [place], [address], 12/13/2022 13:18:20 12/14/19 23 12/13/2022 COMPR EHENS DIAMOND METAB OLIC PANEL globulin 2.9 g/dL 2.6-4. 2 Not Available [facility] (Lab) [address] [place], [address], 12/13/2022 13:18:20 12/14/19 23 12/13/2022 COMPR EHENS DIAMOND METAB OLIC PANEL A/G ratio 1.6 ratio 1.0-2. 0 Not Available [facility] (Lab) [address] [place], [address], 12/13/2022 13:18:20 12/14/19 23 12/13/2022 LIPID PANEL cholesterol 202 mg/dL 140-19 9 high NIH JOSIANE NSUS RECOM MENDA TION FOR IDANIA STERO L: ADULT CHILD LOW RISK: <200 <170 BORDE RLINE : <200- 239 ----- HIGH RISK: >240 >200 Not Available [facility] (Lab) [address] [place], [address], 12/13/2022 13:18:22 12/14/19 23 12/13/2022 LIPID PANEL triglyceride s 108 mg/dL 0-150 NIH JOSIANE NSUS REPOR T RECOM MENDA TION FOR TRIGL YCERI MICHAEL: ADULT CHILD LOW RISK: <150 ----- BODER LINE: 150-1 99 ----- HIGH RISK: >200 ----- Not Available [facility] (Lab) [address] [place], [address], 12/13/2022 13:18:22 12/14/19 23 12/13/2022 LIPID PANEL HDL cholesterol 77 mg/dL 40- Not Available [facility] (Lab) [address] [place] [address], [address], 12/13/2022 13:18:22 12/14/19 23 12/13/2022 LIPID PANEL LDL cholesterol, calculated 103 mg/dL 0-130 NIH JOSIANE NSUS REPOR T RECOM MENDA TIONS FOR LDL: ADULT CHILD LOW RISK <130 <110 (OPTI MAL LDL) <100 ----- BORDE RLINE : 130-1 59 ----- HIGH RISK: >160 >130 A TRIGL YCERI DE RESUL T >400 INVAL IDATE S THE CALCU LATIO N FOR LDL FRACT IONAT ION - THE LDL RESUL T WILL NOT BE REPOR ISIDORO. Not Available [facility] (Lab) [address] [place], [address], 12/13/2022 13:18:22 12/14/1912/13/2022 HEMOG LOBIN A1C HA1C 5.8 % 4.0-6. 0 Diabe desire Scree asia Crite kayla: <5.7% Consi stent with absen ce of diabe desire 5.7-6 .4% Consi stent with incre ased risk for diabe desire (pred iabet es) >OR=6 .5% Consi stent with diabe desire REFER ENCE: Diabe desire Care 2016, 39(Marques ppl.1 ):s13 -s22 Not Available [facility] (Lab) [address] [place], [address], 12/13/2022 18:47:46 01/05/2001/04/2023 CBC/C OMPLE TE BLD COUNT W/DIF F white blood cells 6.0 x10'3 /uL 4.2-10 .8 Not Available [facility] (Lab) [address] [place], [address], 01/04/2023 14:02:00 01/05/20 23 01/04/2023 CBC/C OMPLE TE BLD COUNT W/DIF F red blood cells 4.42 x10'6 /uL 3.80-5 .20 Not Available [facility] (Lab) [address] [place], [address], 01/04/2023 14:02:00 01/05/20 23 01/04/2023 CBC/C OMPLE TE BLD COUNT W/DIF F hemoglobin 12.4 g/dL 12.0-1 5.6 Not Available [facility] (Lab) [address] [place], [address], 01/04/2023 14:02:00 01/05/20 23 01/04/2023 CBC/C OMPLE TE BLD COUNT W/DIF F hematocrit 38.9 % 35.7-4 5.7 Not Available [facility] (Lab) [address] [place], [address], 01/04/2023 14:02:00 01/05/20 23 01/04/2023 CBC/C OMPLE TE BLD COUNT W/DIF F mean red cell volume 88.0 fL 82.0-9 9.0 Not Available [facility] (Lab) [address] [place], [address], 01/04/2023 14:02:00 01/05/20 23 01/04/2023 CBC/C OMPLE TE BLD COUNT W/DIF F mean red cell hemoglobin 28.1 pg 27.0-3 3.0 Not Available [facility] (Lab) [address] [place], [address], 01/04/2023 14:02:00 01/05/20 23 01/04/2023 CBC/C OMPLE TE BLD COUNT W/DIF F mean RBC HGB concentratio n 31.9 g/dL 31.0-3 6.0 Not Available [facility] (Lab) [address] [place], [address], 01/04/2023 14:02:00 01/05/20 23 01/04/2023 CBC/C OMPLE TE BLD COUNT W/DIF F red cell distribution width 14.0 % 11.8-1 5.5 Not Available [facility] (Lab) [address] [place], [address], 01/04/2023 14:02:00 01/05/20 23 01/04/2023 CBC/C OMPLE TE BLD COUNT W/DIF F platelets 255 x10'3 /uL 150-40 0 Not Available [facility] (Lab) [address] [facility] [place], [address], 01/04/2023 14:02:00 01/05/20 23 01/04/2023 CBC/C OMPLE TE BLD COUNT W/DIF F mean platelet volume 10.1 fL 9.0-12 .4 Not Available [facility] (Lab) [address] [place], [address], 01/04/2023 14:02:00 01/05/2001/04/2023 CBC/C OMPLE TE BLD COUNT W/DIF F neutrophils 60.4 % 39.0-7 2.0 Not Available [facility] (Lab) [address] [place], [address], 01/04/2023 14:02:00 01/05/2001/04/2023 CBC/C OMPLE TE BLD COUNT W/DIF F lymphocytes 28.5 % 16.0-4 7.0 Not Available [facility] (Lab) [address] [place], [address], 01/04/2023 14:02:00 01/05/2001/04/2023 CBC/C OMPLE TE BLD COUNT W/DIF F monocytes 7.5 % 5.0-12 .0 Not Available [facility] (Lab) [address] [place], [address], 01/04/2023 14:02:00 01/05/2001/04/2023 CBC/C OMPLE TE BLD COUNT W/DIF F eosinophils 2.7 % 1.0-7. 0 Not Available [facility] (Lab) [address] [place], [address], 01/04/2023 14:02:00 01/05/20 23 01/04/2023 CBC/C OMPLE TE BLD COUNT W/DIF F basophils 0.7 % 0.0-2. 0 Not Available [facility] (Lab) [address] [place], [address], 01/04/2023 14:02:00 01/05/20 23 01/04/2023 CBC/C OMPLE TE BLD COUNT W/DIF F immature granulocytes 0.2 % 0.00-0 .50 Not Available [facility] (Lab) [address] [place], [address], 01/04/2023 14:02:00 01/05/2001/04/2023 CBC/C OMPLE TE BLD COUNT W/DIF F neutrophils, absolute count 3.65 x10'3 /uL 1.5-8. 0 Not Available [facility] (Lab) [address] [place], [address], 01/04/2023 14:02:00 01/05/2001/04/2023 CBC/C OMPLE TE BLD COUNT W/DIF F lymphocytes, absolute count 1.72 x10'3 /uL 1.07-3 .43 Not Available [facility] (Lab) [address] [place], [address], 01/04/2023 14:02:00 01/05/20 23 01/04/2023 CBC/C OMPLE TE BLD COUNT W/DIF F monocytes, absolute count 0.45 x10'3 /uL 0.29-0 .99 Not Available [facility] (Lab) [address] [place], [address], 01/04/2023 14:02:00 01/05/2001/04/2023 CBC/C OMPLE TE BLD COUNT W/DIF F eosinophils, absolute count 0.16 x10'3 /uL 0.02-0 .53 Not Available [facility] (Lab) [address] [place], [address], 01/04/2023 14:02:00 01/05/20 23 01/04/2023 CBC/C OMPLE TE BLD COUNT W/DIF F basophils, absolute count 0.04 x10'3 /uL 0.01-0 .08 Not Available [facility] (Lab) [address] [place], [address], 01/04/2023 14:02:00 01/05/20 23 01/04/2023 CBC/C OMPLE TE BLD COUNT W/DIF F immature granulocytes ,absolute 0.01 x10'3 /uL 0.00-0 .05 Not Available [facility] (Lab) [address] [place], [address], 01/04/2023 14:02:00 01/05/20 23 01/04/2023 CBC/C OMPLE TE BLD COUNT W/DIF F nucleated red blood cells 0.0 % -0 Not Available [facility] (Lab) [address] [place], [address], 01/04/2023 14:02:00 01/05/20 23 01/04/2023 CBC/C OMPLE TE BLD COUNT W/DIF F NRBC# 0.00 x10'3 /uL Not Available [facility] (Lab) [address] [place], [address], 01/04/2023 14:02:00 01/05/20 23 01/04/2023 LIPID PANEL cholesterol 178 mg/dL 140-19 9 NIH JOSIANE NSUS RECOM MENDA TION FOR IDANIA STERO L: ADULT CHILD LOW RISK: <200 <170 BORDE RLINE : <200- 239 ----- HIGH RISK: >240 >200 Not Available [facility] (Lab) [address] [place], [address], 01/04/2023 14:59:51 01/05/20 23 01/04/2023 LIPID PANEL triglyceride s 111 mg/dL 0-150 NIH JOSIANE NSUS REPOR T RECOM MENDA TION FOR TRIGL YCERI MICHAEL: ADULT CHILD LOW RISK: <150 ----- BODER LINE: 150-1 99 ----- HIGH RISK: >200 ----- Not Available [facility] (Lab) [address] [place], [address], 01/04/2023 14:59:51 01/05/20 23 01/04/2023 LIPID PANEL HDL cholesterol 55 mg/dL 40- Not Available [facility] (Lab) [address] [place], [address], 01/04/2023 14:59:51 01/05/20 23 01/04/2023 LIPID PANEL LDL cholesterol, calculated 101 mg/dL 0-130 NIH JOSIANE NSUS REPOR T RECOM MENDA TIONS FOR LDL: ADULT CHILD LOW RISK <130 <110 (OPTI MAL LDL) <100 ----- BORDE RLINE : 130-1 59 ----- HIGH RISK: >160 >130 A TRIGL YCERI DE RESUL T >400 INVAL IDATE S THE CALCU LATIO N FOR LDL FRACT IONAT ION - THE LDL RESUL T WILL NOT BE REPOR ISIDORO. Not Available [facility] (Lab) [address] [place], [address], 01/04/2023 14:59:51 01/05/20 23 01/04/2023 COMPR EHENS DIAMOND METAB OLIC PANEL sodium 140 mmol/ L 137-14 5 Not Available [facility] (Lab) [address] [place], [address], 01/04/2023 14:59:57 01/05/20 23 01/04/2023 COMPR EHENS DIAMOND METAB OLIC PANEL potassium 4.3 mmol/ L 3.5-5. 1 Not Available [facility] (Lab) [address] [place], [address], 01/04/2023 14:59:57 01/05/20 23 01/04/2023 COMPR EHENS DIAMOND METAB OLIC PANEL chloride 107 mmol/ L 98-107 Not Available [facility] (Lab) [address] [place], [address], 01/04/2023 14:59:57 01/05/20 23 01/04/2023 COMPR EHENS DIAMOND METAB OLIC PANEL carbon dioxide 26 mmol/ L 22-30 Not Available [facility] (Lab) [address] [place], [address], 01/04/2023 14:59:57 01/05/20 23 01/04/2023 COMPR EHENS DIAMOND METAB OLIC PANEL anion gap 11.3 mmol/ L 14-22 low Not Available [facility] (Lab) [address] [place], [address], 01/04/2023 14:59:57 01/05/20 23 01/04/2023 COMPR EHENS DIAMOND METAB OLIC PANEL glucose 101 mg/dL 70-99 high Not Available [facility] (Lab) [address] [place], [address], 01/04/2023 14:59:57 01/05/20 23 01/04/2023 COMPR EHENS DIAMOND METAB OLIC PANEL BUN 30 mg/dL 8-19 high Not Available [facility] (Lab) [address] [place], [address], 01/04/2023 14:59:57 01/05/20 23 01/04/2023 COMPR EHENS DIAMOND METAB OLIC PANEL creatinine 1.04 mg/dL 0.66-1 .25 Not Available [facility] (Lab) [address] [place], [address], 01/04/2023 14:59:57 01/05/20 23 01/04/2023 COMPR EHENS DIAMOND METAB OLIC PANEL GFR 54 Refer ence Range : [facility] GFR Healt hy Adult : >60 mL/mi n/1.7 3 m2 Chron ic Kidne y Disea se: 15-60 mL/mi n/1.7 3 m2 Kidne y Failu re: <15/m L/min /1.73 m2 www.n iddk. nih.g ov The MDRD study equat ion has not been valid ated in child naomi <18 years of age; pregn ant women ; the elder ly >85 years of age; or in some racia l or ethni c subgr oups, such as Hispa nics. Outsi de the valid ated sujit eters , estim ated GFR is less accur ate, requi ring clini josé antonio judgm ent on a case- by-ca se basis . Clini josé antonio inter preta tion for other races and ages must be made by the clini augusto. The MDRD study equat ion has not been valid ated for the evalu ation of serum creat inine relat ed to nutri argelia l statu s or medic ation usage . For perso ns <18 years of age, a pedia tric GFR calcu lator is avail able on the [facility] websi te: https ://kathe kern.manjeet simmons.o rg/pr ofess ional s/kdo qi/gf r_cal culat or Not Available [facility] (Lab) [address] [place], [address], 01/04/2023 14:59:57 01/05/20 23 01/04/2023 COMPR EHENS DIAMOND METAB OLIC PANEL alkaline phosphatase 58 U/L 38-126 Not Available [facility] (Lab) [address] [place], [address], 01/04/2023 14:59:57 01/05/20 23 01/04/2023 COMPR EHENS DIAMOND METAB OLIC PANEL alanine aminotransfe rase 20 U/L 0-35 Not Available [facility] (Lab) [address] [place], [address], 01/04/2023 14:59:57 01/05/20 23 01/04/2023 COMPR EHENS DIAMOND METAB OLIC PANEL aspartate aminotransfe rase 28 U/L 15-37 Not Available [facility] (Lab) [address] [place], [address], 01/04/2023 14:59:57 01/05/20 23 01/04/2023 COMPR EHENS DIAMOND METAB OLIC PANEL bilirubin, total 0.50 mg/dL 0.20-1 .30 Not Available [facility] (Lab) [address] [place], [address], 01/04/2023 14:59:57 01/05/20 23 01/04/2023 COMPR EHENS DIAMOND METAB OLIC PANEL calcium 9.1 mg/dL 8.4-10 .2 Not Available [facility] (Lab) [address] [place], [address], 01/04/2023 14:59:57 01/05/20 23 01/04/2023 COMPR EHENS DIAMOND METAB OLIC PANEL total protein 6.9 g/dL 6.3-8. 2 Not Available [facility] (Lab) [address] [place], [address], 01/04/2023 14:59:57 01/05/20 23 01/04/2023 COMPR EHENS DIAMOND METAB OLIC PANEL albumin 4.1 g/dL 3.0-4. 4 Not Available [facility] (Lab) [address] [place], [address], 01/04/2023 14:59:57 01/05/20 23 01/04/2023 COMPR EHENS DIAMOND METAB OLIC PANEL globulin 2.8 g/dL 2.6-4. 2 Not Available [facility] (Lab) [address] [place], [address], 01/04/2023 14:59:57 01/05/20 23 01/04/2023 COMPR EHENS DIAMOND METAB OLIC PANEL A/G ratio 1.5 ratio 1.0-2. 0 Not Available [facility] (Lab) [address] [place], [address], 01/04/2023 14:59:57 01/05/2001/04/2023 BNP/B -NATR IURET IC PEPTI DE BNP 79 pg/mL 4-125 Not Available [facility] (Lab) [address], [place], [address], 01/04/2023 16:36:07 01/18/20 23 01/17/2023 MAMMO , scree asia, digit al, bilat eral No observ ation record ed. [email or web address] [facility] [address], [place], [address], 04/19/2023 12:48:13 01/19/2001/17/2023 MAMMO , edie dicksong, digit al, bilat eral No observ ation record ed. [email or web address] [facility] [address], [place], [address], 04/19/2023 12:48:14 02/02/20 23 02/01/2023 US, echoc ardio gram No observ ation record ed. [email or web address] [facility] [address], [place], [address], 04/19/2023 12:48:14 02/06/20 23 02/01/2023 US, echoc ardio gram No observ ation record ed. [email or web address] [facility] [address], [place], [address], 02/09/2023 11:07:54 Result Notes None recorded. Problems Name Problem SNOMED Code Status Onset Date Resolution Date Notes Provider Name and Address Organization Details Recorded Time Acquired trigger finger 7258124 Active Not Available [facility] 4 09:34:50 Chronic urinary tract infection 378329358 Active Not Available [facility] 4 09:34:50 Localized, primary osteoarthriti s of the hand 963999324 Active Not Available [facility] 4 09:34:50 Pain of joint of wrist 864471971 Active Not Available [facility] 4 09:34:50 Sinusitis 28931490 Active Not Available [facility] 4 09:34:50 Osteoarthriti s 913280497 Active Not Available [facility] 4 09:34:50 Medial epicondylitis 37270900 Active Not Available [facility] 4 09:34:50 Lower abdominal pain 44162662 Active Not Available [facility] 4 09:34:50 Carpal tunnel syndrome 59892896 Active Not Available [facility] 4 09:34:50 Urinary tract infectious disease 02098012 Active Not Available [facility] 4 09:34:50 Dyslipidemia 940933086 Active 2016 Not Available [facility] 4 09:34:50 Anxiety 49644939 Active 2016 Not Available [facility] 4 09:34:50 Obstructive sleep apnea syndrome 73052937 Active 2017 Not Available [facility] 4 09:34:50 Body mass index 30+ - obesity 696895364 Active 2017 Not Available [facility] 4 09:34:50 Vitamin D deficiency 62196623 Active 2020 Not Available [facility] 4 09:34:50 Upper respiratory infection 13151096 Active 2021 Not Available [facility] 4 09:34:50 Essential hypertension 96699413 Active 2022 Not Available [facility] 4 09:34:50 Blood glucose outside reference range 167853713 Active 2022 Not Available [facility] 4 09:34:50 Vomiting 322320673 Active 2022 Not Available [facility] 4 09:34:50 Edema of lower extremity 789879231 Active 2022 Not Available [facility] 4 09:34:50 Problem Notes None recorded. Procedures Surgical History Date Name Laterality Status Provider Name and Address Organization Details Recorded Time 05/19/20 hammer toe operation completed Not Available [facility] 07/19/2022 05:56:33 07/17/19 19 total knee replacement completed Not Available [facility] 07/19/2022 05:56:33 04/30/20 14 Incise finger tendon sheath completed Not Available [facility] 07/19/2022 05:56:33 04/30/20 14 Carpal tunnel completed Not Available [facility] 2022 05:56:33 05/21/18 93 biopsy of breast completed Not Available [facility] 07/19/2022 05:56:33 Knee Surgery completed Not Available [facility] 07/19/2022 05:56:33 Imaging Results None recorded. Procedure Notes None recorded. Medical Equipment None Reported. Allergies Allergen ID Allergen Name Allergen Category Reaction Reaction Severity Criticality Documentation Date Start Date Code Code System Note Provider Name and Address Organization Details Recorded Time 10646 Substance with sulfonami de structure and antibacte rial mechanism of action (substanc e) medicatio n hives Not available Not available 07/19/2022 67915 8003 SNOMED Not Available [facility] 3 06:09:33 67788 Product containin g penicilli n (product) medicatio n rash Not available Not available 07/19/2022 57873 8001 SNOMED Not Available [facility] 3 06:09:33 Medications Name Sig Start Date Stop Date Status Note LastModified by Organization Details LastModified Time Singulair 10 mg tablet Take 1 tablet every day by oral route. 11/06 completed Not Available Not Available Not Available losartan 50 mg tablet TAKE 1 TABLET BY MOUTH EVERY DAY active Not Available Not Available No t Available nifedipin e ER 30 mg tablet,ex tended release 24 hr TAKE 1 TABLET BY MOUTH EVERY DAY active Not Available Not Available No t Available cyclobenz aprine 10 mg tablet 10/03 completed Not Available Not Available Not Available bupropion HCl SR 150 mg tablet,12 hr sustained -release TAKE 1 TABLET BY MOUTH TWICE A DAY active Not Available Not Available No t Available prednison e 10 mg tablet Take by oral route. 10/03 completed Not Available Not Available Not Available doxycycli ne hyclate 100 mg capsule TAKE 1 CAPSULE BY MOUTH TWICE A DAY WITH MEALS FOR 7 DAYS 12/21 completed Not Available Not Available Not Available clindamyc in HCl 300 mg capsule 10/03 completed Not Available Not Available Not Available atorvasta tin 10 mg tablet TAKE 1 TABLET BY MOUTH EVERY DAY active Not Available Not Available No t Available Iron (ferrous sulfate) 325 mg (65 mg iron) tablet Take 1 tablet every day by oral route. 10/03 completed Not Available Not Available Not Available azithromy edouard 250 mg tablet TK 2 TS PO ON DAY 1, THEN TK 1 T PO D FOR 4 DAYS 05/30 completed Not Available Not Available Not Available hydrocodo ne 5 mg-acetam inophen 325 mg tablet TK 1 T PO Q 4 H PRN active Not Available Not Available No t Available phenazopy ridine 200 mg tablet TK 1 T PO TID PC 08/29 completed Not Available Not Available Not Available Medrol (Vadim) 4 mg tablets in a dose pack Take by oral route. 11/06 completed Not Available Not Available Not Available sertralin e 100 mg tablet TAKE 1 AND 1/2 TABLETS DAILY BY MOUTH active Not Available Not Available No t Available nifedipin e ER 30 mg tablet,ex tended release Take 1 tablet by mouth every day. 11/13 completed increase d to 60mg Not Available Not Available Not Available ciproflox acin 250 mg tablet TK 1 T PO Q 12 H 08/29 completed Not Available Not Available Not Available ciproflox acin 500 mg tablet TK 1 T PO Q 12 H FOR 7 DAYS 12/26 completed Not Available Not Available Not Available meloxicam 7.5 mg tablet TK 1 T PO BID 11/06 completed Not Available Not Available Not Available aspirin 325 mg tablet,de layed release 10/03 completed Not Available Not Available Not Available oxycodone -acetamin ophen 10 mg-325 mg tablet 10/03 completed Not Available Not Available Not Available phenazopy ridine 100 mg tablet TAKE 2 TABLETS ORAL ROUTE 3 TIMES PER DAY FOR 2 DAYS 04/17 completed Not Available Not Available Not Available pantopraz ole 40 mg tablet,de layed release TAKE 1 TABLET BY MOUTH EVERY DAY active Not Available Not Available No t Available losartan 25 mg tablet TAKE 1 TABLET BY MOUTH EVERY DAY 04/17 completed Not Available Not Available Not Available levofloxa edouard 500 mg tablet TK 1 T PO Q 24 H 07/18 completed Not Available Not Available Not Available Vitamin D2 1,250 mcg (50,000 unit) capsule 07/18 completed Not Available Not Available Not Available nifedipin e ER 60 mg tablet,ex tended release TAKE 1 TABLET BY MOUTH EVERY DAY 04/17 completed Not Available Not Available Not Available fluticaso ne propionat e 50 mcg/actua tion nasal spray,vahid pension SHAKE LIQUID AND USE 1 SPRAY IN EACH NOSTRIL EVERY DAY 05/30 completed Not Available Not Available Not Available neomycin 3.5 mg/g-poly myxin B 10,000 unit/g-de xameth 0.1 % eye oint APPLY A THIN LAYER INTO AFFECTED EYE BID FOR 5 DAYS 06/05 completed Not Available Not Available Not Available Premarin 0.625 mg/gram vaginal cream 09/15 completed Not Available Not Available Not Available rosuvasta tin 10 mg tablet Take 1 tablet every day by oral route. active Not Available Not Available No t Available nitrofura ntoin monohydra te/macroc rystals 100 mg capsule TAKE 1 CAPSULE BY MOUTH EVERY 12 HOURS FOR 10 DAYS 04/17 completed Not Available Not Available Not Available iron 08/01 completed Not Available Not Available Not Available Zyrtec QD otc 09/15 completed Not Available Not Available Not Available multivita min 09/15 completed Not Available Not Available Not Available Lo Loestrin Fe 1 mg-10 mcg (24)/10 mcg (2) tablet TK 1 T PO QD active Not Available Not Available No t Available Vitamin D3 50 mcg (2,000 unit) capsule Take by oral route. 09/15 completed Not Available Not Available Not Available bupropion HCl 150 mg tablet,12 hr sustained -release( smoking deterrent ) Take 1 tablet twice a day by oral route. 07/20 completed Not Available Not Available Not Available Afluria Qd 2018- (36 mos up)(PF)60 mcg (15 mcg x4)/0.5 mL IM syringe active Not Available Not Available Not Available Fluzone Quad (PF) 60 mcg (15 mcg x 4)/0.5 mL IM syringe ADM 0.5ML IM UTD 06/10 completed Not Available Not Available Not Available Vitals Date Recorded Body height Body mass index (BMI) Body weight Body temperature Heart rate Systolic And Diastolic Provider Name and Address Organization Details Last Updated DateTime 3 170.18 cm 37.7 kg/m2 231387. 76 g 99.1 [degF] 102 /min 140/80 mm[Hg] Jonelle zayas RN [facility] [employer] [facility] 3 15:12:15 Date Recorded Body height Body mass index (BMI) Body weight Body temperature Heart rate Systolic And Diastolic Provider Name and Address Organization Details Last Updated DateTime 3 170.18 cm 37.4 kg/m2 162525. 58 g 97.5 [degF] 104 /min 128/76 mm[Hg] THOMAS Lopez [facility] [employer] [facility] 3 14:30:27 Date Recorded Body height Body mass index (BMI) Body weight Body temperature Heart rate Systolic And Diastolic Provider Name and Address Organization Details Last Updated DateTime 3 170.18 cm 37.6 kg/m2 995377. 17 g 97.7 [degF] 95 /min 130/70 mm[Hg] THOMAS Lopez [facility] [employer] [facility] 3 11:28:55 Date Recorded Body height Body mass index (BMI) Body weight Body temperature Heart rate Systolic And Diastolic Provider Name and Address Organization Details Last Updated DateTime 3 170.18 cm 37.9 kg/m2 748144. 35 g 98.7 [degF] 101 /min 142/80 mm[Hg] Jonelle zayas RN [facility] [employer] [facility] 3 15:38:25 Date Recorded Body height Body mass index (BMI) Body weight Body temperature Heart rate Systolic And Diastolic Provider Name and Address Organization Details Last Updated DateTime 3 170.18 cm 38.5 kg/m2 109745. 72 g 97.3 [degF] 76 /min 144/88 mm[Hg] THOMAS Lopez [facility] [employer] [facility] 3 11:21:47 Social History Question Answer Notes LastModified by Organizat ion Details LastModified Time Tobacco Smoking Status Never Smoker Not Available [facility] 07/19/2022 05:55:10 Do You Have An Advance Directive? Yes MIGRATION.[id number] Information not available 07/19/2022 What Is Your Level Of Caffeine Consumption? Moderate MIGRATION.91235 75076 Information not available 07/19/2022 How Much Tobacco Do You Chew? None MIGRATION.03407 60533 Information not available 07/19/2022 In The 14 Days Before Symptom Onset, Have You Had Close Contact With A Laboratory-confi rmed COVID-19 While That Case Was Ill? No MIGRATION.99425 25945 Information not available 07/19/2022 In The 14 Days Before Symptom Onset, Have You Had Close Contact With A Person Who Is Under Investigation For COVID-19 While That Person Was Ill? No MIGRATION.83990 55430 Information not available 07/19/2022 What Type Of Diet Are You Following? REGULAR MIGRATION.54635 47017 Information not available 07/19/2022 Which Illicit Or Recreational Drugs Have You Used? None MIGRATION.05423 82791 Information not available 07/19/2022 What Is The Highest Grade Or Level Of School You Have Completed Or The Highest Degree You Have Received? [id number] MIGRATION.80086 51216 Information not available 07/19/2022 Have There Been Any Changes To Your Family Or Social Situation? No MIGRATION.26874 77732 Information not available 07/19/2022 What Is The Fluoride Status Of Your Home? Unknown MIGRATION.18049 66054 Information not available 07/19/2022 Are There Any Guns Present In Your Home? No MIGRATION.77151 93519 Information not available 07/19/2022 Do You Use Insect Repellent Routinely? No MIGRATION.46181 03669 Information not available 07/19/2022 Where Do You Live? [place] MIGRATION.74729 99242 Information not available 07/19/2022 Do You Have A Medical Power Of Public Health Inspector? Yes MIGRATION.54447 19507 Information not available 07/19/2022 What Was The Date Of Your Most Recent Tobacco Screening? 04/17/2023 [email or web address] Information not available 04/17/2023 Have You Ever Been Counseled For Unhealthy Alcohol Use? No MIGRATION.59436 44774 Information not available 07/19/2022 Do You Have Any Pets? No MIGRATION.43595 46417 Information not available 07/19/2022 What Is Your Relationship Status? MIGRATION.30422 18995 Information not available 07/19/2022 Do You Use Your Seat Belt Or Car Seat Routinely? Yes MIGRATION.44918 06887 Information not available 07/19/2022 Do You Have Smoke And Carbon Monoxide Detectors In Your Home? Yes MIGRATION.23371 28351 Information not available 07/19/2022 Are You Passively Exposed To Smoke? Yes MIGRATION.36318 83142 Information not available 07/19/2022 Are There Any Smokers In Your House? Yes Sons Smokes In Garage MIGRATION.31663 46849 Information not available 07/19/2022 How Much Tobacco Do You Smoke? No MIGRATION.44876 70547 Information not available 07/19/2022 What Types Of Sporting Activities Do You Participate In? None MIGRATION.68996 27395 Information not available 07/19/2022 Do You Use Sunscreen Routinely? Yes MIGRATION.07465 40638 Information not available 07/19/2022 Has Tobacco Cessation Counseling Been Provided? No Not Needed-ne wilfredo Smoked MIGRATION.55451 98913 Information not available 07/19/2022 How Many Years Have You Smoked Tobacco? 0 MIGRATION.11001 01029 Information not available 07/19/2022 Have You Recently Traveled Abroad? No MIGRATION.07873 14763 Information not available 07/19/2022 Do You Have Any Dietary Restrictions? No MIGRATION.81749 61319 Information not available 07/19/2022 Sex: Female Functional Status Question Answer Note LastModified by Organizat ion Details LastModified Time Do you use any illicit or recreational drugs? No MIGRATION.924448 0008 Information not available 07/19/2022 Do you or have you ever used any other forms of tobacco or nicotine? No MIGRATION.285124 7987 Information not available 07/19/2022 What is your level of alcohol consumption? Occasional MIGRATION.213701 3355 Information not available 07/19/2022 Do you or have you ever used smokeless tobacco? Never used smokeless tobacco MIGRATION.967838 3853 Information not available 07/19/2022 Are you currently employed? No [email or web address] Information not available 08/15/2022 What is your occupation? homemaker MIGRATION.782050 5870 Information not available 07/19/2022 Do you or have you ever used e-cigarettes or vape? Never used electronic cigarettes MIGRATION.856588 8418 Information not available 07/19/2022 What is your exercise level? Occasional MIGRATION.670127 1213 Information not available 07/19/2022 Mental Status Question Answer Note LastModified by Organizat ion Details LastModified Time Do you feel stressed (tense, restless, nervous, or anxious, or unable to sleep at night)? [id number] MIGRATION.[id number] Information not available 07/19/2022 Family History Relationship Description Onset Age of this Age Resolved Age Notes LastModified by Organization Details LastModified Time Mother Malignant neoplasm of lung 53 MIGRATION.[id number] Not available 07/19/2022 05:56:38 Father Ulcer of esophagus MIGRATION.070 [id number] Not available 07/19/2022 05:56:38 Unspecified Relation Family history of cancer of colon grandp arents MIGRATION.284 [id number] Not available 07/19/2022 05:56:38 Sister Multiple sclerosis MIGRATION.510 [id number] Not available 07/19/2022 05:56:38 Medical History Condition Response NERVE DISEASE N BLINDNESS N RHEUMATIC FEVER N KIDNEY STONES N BLADDER PROBLEMS N MRSA N OTHER # 1 N POLIO N LUNG DISEASE/DISORDER N COPD N RADIATION / CHEMOTHERAPY N Other # 2 N BLOOD DISEASES N EAR OR HEARING PROBLEMS N MUMPS N DEPRESSION (INCLUDING POST ) Y BOWEL PROBLEMS N STROKE/TIA N ULCERS N BENIGN PROSTATIC HYPERPLASIA N MEASLES N MYOCARDIAL INFARCTION N OBESITY N GERD/NAUSEA N ANEURYSM N URINARY/BLADDER/KIDNEY PROBLEMS N CORONARY ARTERY DISEASE (CAD) N ADDICTION CONCERNS N Impotence N ENDOMETRIOSIS N USE OF BLOOD THINNERS N SKIN PROBLEMS N GASTROINTESTINAL DISORDER N PERIPHERAL VASCULAR DISEASE N MUSCLE,JOINT OR BONE PROBLEMS N GASTROINTESTINAL BLEEDING N BLOOD CLOTS N ASTHMA N CATARACTS N ERECTILE DYSFUNCTION N VARICOSITIES N GI PROBLEMS N Low Testosterone N INFERTILITY N AIDS/HIV N CHEMOTHERAPY / RADIATION N LIVER DISEASE N MALE HYPOGONADISM N HYPERTENSION N Deficiency Y TOURETTE'S N ANXIETY DISORDER Y BLOOD TRANSFUSION N ANEMIA/BLOOD DISORDER N CHRONIC EAR INFECTIONS N BRONCHITIS N TUBERCULOSIS N GLAUCOMA N FOOT PROBLEM N DIVERTICULITIS N SLEEP APNEA N CHICKENPOX N INFECTIOUS DISEASE N PROSTATE N HEART ARRHYTHMIA N INSOMNIA N HIGH CHOLESTEROL / HYPERLIPIDEMIA Y EYE PROBLEMS N HYPERTHYROIDISM N EDEMA N CHRONIC PAIN SYNDROME N HYPOTHYROIDISM N CAROTID BLOCKAGE N CONSTIPATION N BACK / NECK PROBLEMS N HAVE YOU BEEN HOSPITALIZED OR SEEN IN [facility] ER IN THE PAST YEAR ? N ATHEROSCLEROSIS N BREAST PROBLEMS N DIALYSIS N ECZEMA N OSTEOPOROSIS N ARTHRITIS Y APPENDICITIS N DIABETES, TYPE N BAD TEETH N ENT N HEARTBURN / REFLUX N AUTISM SPECTRUM DISORDER (ASD) N HEPATITIS / LIVER DISEASE N GOUT N SLEEP DISORDER N ALZHEIMER'S DISEASE N Brain Problems N DEMENTIA N HERPES N SEIZURES/EPILEPSY N HEADACHES/MIGRAINES N VASCULAR DISEASE N PACEMAKER N Blood Disorder N DIZZINESS N HEART DISEASE/HEART PROBLEMS N KIDNEY DISEASE N MULTIPLE SCLEROSIS N CANCER: SPECIFY N CARDIAC ARRHYTHMIA N ATRIAL FIBRILLATION N Gall Stones N PULMONARY EMBOLISM N AUTOIMMUNE DISEASE N Gynecological HistoryNo gynecological history recorded. Obstetrics History GPAL:G 0 P 0 0 0 0 Immunizations Vaccine Type Date Status Note Provider Nam e and Address Organization Details Recorded Time COVID-19, mRNA, LNP-S, PF, 30 mcg/0.3 mL dose 1 completed Not Available [facility] 05/28/2023 05:02:07 COVID-19, mRNA, LNP-S, PF, 30 mcg/0.3 mL dose 1 completed Not Available [facility] 05/28/2023 05:02:07 COVID-19, mRNA, LNP-S, PF, 30 mcg/0.3 mL dose 1 completed Not Available [facility] 05/28/2023 05:02:07 Influenza, split virus, trivalent, preservative 0 completed Not Available [facility] 05/28/2023 05:02:07 Influenza, split virus, quadrivalent, preservative 9 completed Not Available [facility] 05/28/2023 05:02:07 Influenza, split virus, quadrivalent, PF 8 completed Not Available [facility] 05/28/2023 05:02:07 Tdap 7 completed Not Available [facility] 05/28/2023 05:02:07 Influenza, split virus, quadrivalent, PF 1 completed Not Available [facility] 05/28/2023 05:02:07 Past Encounters Encounter ID Performer Location Encounter Start Date Encounter Closed Date Diagnosis/Indication Diagnosis SNOMED-CT Code Diagnosis ICD10 Code Diagnosis IMO Codes Diagnosis Note [id number] Franklin Butler MD [facility] [place] [address] [place] [address] y , [place] [address] 12/02/2020 00:00:00 12/02/2020 22:33:00 [id number] Franklin Butler MD [facility] [place] [address] [place] [address] y , [place] [address] 06/02/2021 00:00:00 06/02/2021 22:18:10 [id number] Franklin Butler MD [facility] [place] [address] [place] [address] y , [place] [address] 12/01/2021 00:00:00 12/01/2021 10:32:40 [id number] Franklin Butler MD [facility] [place] [address] [place] [address] y , [place] [address] 05/30/2022 00:00:00 06/04/2022 14:14:05 [id number] Franklin Butler MD [facility] [place] [address] [place] [address] y , [place] [address] 08/15/2022 14:27:45 08/15/2022 15:00:54 Essential hypertension 07269013 I10 [id number] Franklin Butler MD [facility] [place] [address] [place] [address] y , [place] [address] 08/29/2022 15:03:31 08/29/2022 15:46:48 Vomiting [id number] R11.10 [id number] Franklin Butler MD [facility] [place] [address] [place] [address] y , [place] [address] 09/21/2022 14:20:06 09/21/2022 15:22:15 Essential hypertension 54872811 I10 Blood gluc ose outside reference range 290707029 R73.09 [id number] Franklin Butler MD [facility] [place] [address] [place] [address] y , [place] [address] 12/21/2022 11:20:08 12/21/2022 12:09:27 Edema of lower extremity 289307813 R60.0 Essential hypertension 05653792 I10 [id number] Franklin Butler MD [facility] [place] [address] [place] [address] [place] [address] 01/16/2023 15:25:55 01/16/2023 15:57:08 Essential hypertension 27071464 I10 [id number] Franklin Butler MD [facility] [place] [address] [place] [address] [place] [address] 04/17/2023 11:14:33 04/17/2023 12:16:10 Essential hypertension 63382115 I10 Osteoarthritis 547067909 M19.90 Anxiety 78801017 F41.9 Health Concerns Section Related Observation LastModified by Organization Detai ls LastModified Time None Recorded Concern Status LastModified by Organization Details LastModified Time None Recorded Advance Directives Directive Y: Payers Insurance Date Sequence Insurance Name Policy Number Policy Weems Covered Member ID Weems Member ID Guarantor Name 05/31/2023 [facility] Steffi A Kim SELF SELF Steffi A Kim 05/31/2023 1 [employer] Steffi A Kim [id number] Steffi A Kim Notes Date Note Type Note Provider Name and Address Organization Details Recorded Time 08/29/2022 text/html Postprandial vomiting without any pain no melena no hematochezia Franklin Butler MD [address], [place], [address], [employer] [facility] [employer] 10/01/2022 15:26:50 09/21/2022 text/html short interval follow-up on blood pressure no side effects from the medication doing well Franklin Butler MD [address], [place], [address], [facility] [employer] [facility] [employer] 09/21/2022 15:29:10 12/21/2022 text/html Hypertension blood pressure doing reasonably well but she has developed some lower extremity edema without any PND orthopnea MILES Franklin Butler MD [address], [place], [address], [facility] [email or web address] [facility] 12/21/2022 23:09:30 01/16/2023 text/html doing much better Franklin Butler MD [address], [place], [address], [facility] [email or web address] [facility] 01/16/2023 21:47:11 04/17/2023 text/html Hypertension blood pressure doing reasonably well but she has developed some lower extremity edema without any PND orthopnea MILES Franklin Butler MD [address], [place], [address], [facility] 04/28/2023 15:41:02 OBGyn Episode No OBEpisode recorded.
--- OUTSIDE RECORDS SUMMARY | 2025-05-08 01:07 | XMS_ITS | Data Portability ---
Author Organization [facility] [place] Address [address] [facility] [place] [address] Care Team Providers Care Dyed Yarn Operator Name Role Phone OLIVIA BUTLER Primary Care Provider Unavailabl e Assessment Encounter Date Assessment Date Assessment LastModified by Organization Details LastModified Time 12/19/2023 12/19/2023 surgical referra l for incision and drainage start Levaquin healthy lifestyle care instructions to help manage weight keep her regular appointment with me dm Not available 12/21/2023 21:52:27 04/07/2024 04/07/2024 blood pressure looks good we also reviewed her blood pressure readings from her home monitoring system. Hypertension anxiety GERD hyperlipidemia and obesity have been discussed. Osteoarthritis discussed. She is not opposed to GLP 1 agent if we can get it approved through insurance. She will follow up with me in 3-4 months continue current therapy. Flu shot obtain mammogram says she is up-to-date states that she is up-to-date with her negative turner appointments with her breastfeeding educator and we are going to try to obtain her Cologuard report [email or web address] Not available 04/20/2024 15:42:07 07/07/2024 07/07/2024 today her blood pressure looks controlled healthy lifestyle care instructions to help assist with weight loss. Prevnar 20. dietary strategies discussed she will follow up in 3-4 months [email or web address] Not available 07/21/2024 20:43:36 10/06/2024 10/06/2024 We will continue current therapy restart the Wegovy at initiating dose he will stay on that for 8 weeks and see how she does she will see me in 4 months diagnosis in the assessment and plan have been discussed all questions answered dyslipidemia atorvastatin anxiety bupropion and sertraline hypertension carvedilol chlorthalidone nifedipine GERD pantoprazole [email or web address] Not available 10/06/2024 13:44:55 01/12/2025 01/12/2025 Continue current therapy blood work has been ordered all questions answered follow up 4 months [email or web address] Not available 01/18/2025 23:00:46 Plan of Treatment Reminders Order Date Submit Date Provider Last Modified By Organization Details Last Modified Time Details Appointments ANY 15 2024 09:15A Brooklyn Butler MD Not available Not available Not available Lab HbA1c (hemoglob in A1c), blood 2024 025 [facility], [address], [place], [address], 01/22/2025 09:09:34 CBC w/ auto diff 2024 025 [facility], [address], [place], [address], 01/22/2025 09:09:35 CMP, serum or plasma 2024 025 [facility], [address], [place], [address], 01/26/2025 15:34:07 lipid panel, serum 2024 025 [facility], [address], [place], [address], 01/22/2025 09:09:33 CMP, serum or plasma 2023 024 [facility], [address], [place], [address], 04/15/2024 09:15:04 CBC w/ auto diff 2023 024 [facility], [address], [place], [address], 04/15/2024 09:15:08 lipid panel, serum 2023 024 [facility], [address], [place], [address], 04/15/2024 09:15:02 TSH, ultra-sen sitive, serum 2023 024 [facility], [address], [place], [address], 04/15/2024 09:15:07 T4, free, serum 2023 024 [facility], [address], [place], [address], 04/15/2024 09:15:11 T3, free, serum or plasma 2023 024 [facility], [address], [place], [address], 04/15/2024 09:15:10 HbA1c (hemoglob in A1c), blood 2023 024 [facility], [address], [place], [address], 04/15/2024 09:15:05 Referral general surgeon referral 2023 024 [facility] Daryn Priest DO, [address], [address], [place], [address], 12/21/2023 09:51:09 Procedures None recorded. Surgeries None recorded. Imaging None recorded. Medication Orders Wegovy 0.25 mg/0.5 mL subcutane ous pen injector 2024 025 [facility][id number], [address] [place], [address], 11/25/2024 12:52:52 Wegovy 0.25 mg/0.5 mL subcutane ous pen injector 2023 025 [id number], [address] [place], [address], 11/25/2024 12:52:49 Wegovy 0.5 mg/0.5 mL subcutane ous pen injector 2023 024 [facility] #[id number], [address] [place], [address], 11/25/2024 12:53:41 levofloxa edouard 500 mg tablet 2023 025 [facility] #[id number], [address] [place], [address], 07/07/2024 11:06:32 Patient TargetsNo targets recorded. Patient Instructions Encounter Date Encounter Id Patient Instructions Last Modified By Organization Details Last Modified Time 12/19/2023 [id number] A healthy lifestyle: care instructions Not available 12/19/2023 12:44:07 04/07/2024 [id number] A healthy lifestyle: care instructions [email or web address] Not available 04/07/2024 12:27:35 07/07/2024 [id number] A healthy lifestyle: care instructions [email or web address] Not available 07/07/2024 11:48:06 01/12/2025 [id number] A healthy lifestyle: care instructions Not available 01/12/2025 12:49:44 Reason for Referral General Surgeon Referral for Infection of sebaceous cyst Referring Physician: Olivia Butler, Internal Medicine, Encounter Date: 12/19/2023 Results Created Date Observation Date Name Description Value Unit Range Abnormal Flag Note LastModifiedBy Organization Detail LastModifiedTime 01/30/20 24 01/30/2024 BASIC METAB OLIC PANEL (8) interpretati on: COMMEN T GFR estim ate at the follo wing level for >or=3 month s is class ified as follo ws: GFR WITH KIDNE Y DAMAG E WITHO UT KIDNE Y DAMAG E >or=9 0 Stage 1 Arlette l 60-89 Stage 2 Decr eased GFR 30-59 Stage 3 Stage 3 15-29 Stage 4 Stage 4 <15 (or dialy sis) Stage 5 Stage 5 Estim ated GFR will over estim ate true GFR if serum creat inine is risin g as in acute renal failu re and will under estim ate true GFR if serum creat inine is decli asia as in resol ving acute renal failu re. Addit ional infor aria andria may be found at www.k doqi. org. Not Available [facility] ([facility]) [address] [place], [address], 01/31/2024 06:22:01 01/30/2001/31/2024 BASIC METAB OLIC PANEL (8) glucose 124 mg/dL 70-99 above high normal Not Available [facility] ([facility]) [address] [place], [address], 01/31/2024 06:22:01 01/30/20 24 01/31/2024 BASIC METAB OLIC PANEL (8) BUN 35 mg/dL 8-27 above high normal Not Available [facility] ([facility]) [address] [place], [address], 01/31/2024 06:22:01 01/30/20 24 01/31/2024 BASIC METAB OLIC PANEL (8) creatinine 1.09 mg/dL 0.57-1 .00 above high normal Not Available [facility] ([facility]) [address] [place], [address], 01/31/2024 06:22:01 01/30/2001/31/2024 BASIC METAB OLIC PANEL (8) eGFR 57 mL/mi n/1.7 3 >59 below low normal Not Available [facility] ([facility]) [address] [place], [address], 01/31/2024 06:22:01 01/30/20 24 01/31/2024 BASIC METAB OLIC PANEL (8) BUN/creatini ne ratio 32 12-28 above high normal Not Available [facility] ([facility]) [address] [place], [address], 01/31/2024 06:22:01 01/30/20 24 01/31/2024 BASIC METAB OLIC PANEL (8) sodium 141 mmol/ L 134-14 4 Not Available [facility] ([facility]) [address] [place], [address], 01/31/2024 06:22:01 01/30/20 24 01/31/2024 BASIC METAB OLIC PANEL (8) potassium 3.5 mmol/ L 3.5-5. 2 Not Available [facility] ([facility]) [address] [place], [address], 01/31/2024 06:22:01 01/30/20 24 01/31/2024 BASIC METAB OLIC PANEL (8) chloride 100 mmol/ L 96-106 Not Available [facility] ([facility]) [address] [place], [address], 01/31/2024 06:22:01 01/30/20 24 01/31/2024 BASIC METAB OLIC PANEL (8) carbon dioxide, total 25 mmol/ L 20-29 Not Available [facility] ([facility]) [address] [place], [address], 01/31/2024 06:22:01 01/30/20 24 01/31/2024 BASIC METAB OLIC PANEL (8) calcium 9.6 mg/dL 8.7-10 .3 Not Available [facility] ([facility]) [address] [place], [address], 01/31/2024 06:22:01 04/14/20 24 04/15/2024 LIPID PANEL cholesterol, total 176 mg/dL 100-19 9 Not Available [facility] ([facility]) [address] [place], [address], 04/15/2024 09:15:02 04/14/20 24 04/15/2024 LIPID PANEL triglyceride s 106 mg/dL 0-149 Not Available [facility] ([facility]) [address] [place], [address], 04/15/2024 09:15:02 04/14/20 24 04/15/2024 LIPID PANEL HDL cholesterol 57 mg/dL >39 Not Available [facility] ([facility]) [address] [place], [address], 04/15/2024 09:15:02 04/14/20 24 04/15/2024 LIPID PANEL VLDL cholesterol josé antonio 19 mg/dL 5-40 Not Available [facility] ([facility]) [address] [place], [address], 04/15/2024 09:15:02 04/14/20 24 04/15/2024 LIPID PANEL LDL chol calc (nih) 100 mg/dL 0-99 above high normal Not Available [facility] ([facility]) [address] [place], [address], 04/15/2024 09:15:02 04/14/20 24 04/15/2024 COMP. METAB OLIC PANEL (14) glucose 95 mg/dL 70-99 Not Available [facility] ([facility]) [address] [place], [address], 04/15/2024 09:15:04 04/14/20 24 04/15/2024 COMP. METAB OLIC PANEL (14) BUN 26 mg/dL 8-27 Not Available [facility] ([facility]) [address] [place], [address], 04/15/2024 09:15:04 04/14/20 24 04/15/2024 COMP. METAB OLIC PANEL (14) creatinine 1.02 mg/dL 0.57-1 .00 above high normal Not Available [facility] ([facility]) [address] [place], [address], 04/15/2024 09:15:04 04/14/20 24 04/15/2024 COMP. METAB OLIC PANEL (14) eGFR 61 mL/mi n/1.7 3 >59 Not Available [facility] ([facility]) [address] [facility], [place], [address], 04/15/2024 09:15:04 04/14/20 24 04/15/2024 COMP. METAB OLIC PANEL (14) BUN/creatini ne ratio 25 12-28 Not Available [facility] ([facility]) [address] [facility], [place], [address], 04/15/2024 09:15:04 04/14/20 24 04/15/2024 COMP. METAB OLIC PANEL (14) sodium 142 mmol/ L 134-14 4 Not Available [facility] ([facility]) [address] [facility], [place], [address], 04/15/2024 09:15:04 04/14/20 24 04/15/2024 COMP. METAB OLIC PANEL (14) potassium 4.1 mmol/ L 3.5-5. 2 Not Available [facility] ([facility]) [address] [facility], [place], [address], 04/15/2024 09:15:04 04/14/20 24 04/15/2024 COMP. METAB OLIC PANEL (14) chloride 102 mmol/ L 96-106 Not Available [facility] ([facility]) [address] [place], [address], 04/15/2024 09:15:04 04/14/20 24 04/15/2024 COMP. METAB OLIC PANEL (14) carbon dioxide, total 26 mmol/ L 20-29 Not Available [facility] ([facility]) [address] [place], [address], 04/15/2024 09:15:04 04/14/20 24 04/15/2024 COMP. METAB OLIC PANEL (14) calcium 9.6 mg/dL 8.7-10 .3 Not Available [facility] ([facility]) [address] [facility], [place], [address], 04/15/2024 09:15:04 04/14/20 24 04/15/2024 COMP. METAB OLIC PANEL (14) protein, total 6.8 g/dL 6.0-8. 5 Not Available [facility] ([facility]) [address] [facility], [place], [address], 04/15/2024 09:15:04 04/14/2004/15/2024 COMP. METAB OLIC PANEL (14) albumin 4.3 g/dL 3.9-4. 9 Not Available [facility] ([facility]) [address] [facility], [place], [address], 04/15/2024 09:15:04 04/14/20 24 04/15/2024 COMP. METAB OLIC PANEL (14) globulin, total 2.5 g/dL 1.5-4. 5 Not Available [facility] ([facility]) [address] [facility], [place], [address], 04/15/2024 09:15:04 04/14/20 24 04/15/2024 COMP. METAB OLIC PANEL (14) bilirubin, total 0.5 mg/dL 0.0-1. 2 Not Available [facility] ([facility]) [address] [facility], [place], [address], 04/15/2024 09:15:04 04/14/2004/15/2024 COMP. METAB OLIC PANEL (14) alkaline phosphatase 58 IU/L 44-121 Not Available [facility] ([facility]) [address] [facility], [place], [address], 04/15/2024 09:15:04 04/14/20 24 04/15/2024 COMP. METAB OLIC PANEL (14) AST (SGOT) 17 IU/L 0-40 Not Available [facility] ([facility]) [address] [place], [address], 04/15/2024 09:15:04 04/14/20 24 04/15/2024 COMP. METAB OLIC PANEL (14) ALT (SGPT) 16 IU/L 0-32 Not Available [facility] ([facility]) [address] [place], [address], 04/15/2024 09:15:04 04/14/2004/15/2024 HEMOG LOBIN A1C hemoglobin A1C 6.2 % 4.8-5. 6 above high normal Predi abete s: 5.7 - 6.4 Diabe desire: >6.4 Glyce nithin contr ol for adult s with diabe desire: <7.0 Not Available [facility] ([facility]) [address] [place], [address], 04/15/2024 09:15:05 04/14/20 24 04/15/2024 TSH TSH 2.480 uIU/m L 0.450- 4.500 Not Available [facility] ([facility]) [address] [place], [address], 04/15/2024 09:15:07 04/14/20 24 04/15/2024 CBC WITH DIFFE RENTI AL/PL ATELE T WBC 8.4 x10e3 /uL 3.4-10 .8 Eff ectiv e Decem shauna 2023 [place] [address]51 5 WBC will be made* * non-o rdera ble as a stand -dmitriy e order code. Not Available [facility] ([facility]) [address] [place], [address], 04/15/2024 09:15:08 04/14/20 24 04/15/2024 CBC WITH DIFFE RENTI AL/PL ATELE T RBC 4.28 x10e6 /uL 3.77-5 .28 Not Available [facility] ([facility]) [address] [facility], [place], [address], 04/15/2024 09:15:08 04/14/20 24 04/15/2024 CBC WITH DIFFE RENTI AL/PL ATELE T hemoglobin 12.5 g/dL 11.1-1 5.9 Not Available [facility] ([facility]) [address] [facility], [place], [address], 04/15/2024 09:15:08 04/14/20 24 04/15/2024 CBC WITH DIFFE RENTI AL/PL ATELE T hematocrit 37.7 % 34.0-4 6.6 Not Available [facility] ([facility]) [address] [facility], [place], [address], 04/15/2024 09:15:08 04/14/20 24 04/15/2024 CBC WITH DIFFE RENTI AL/PL ATELE T MCV 88 fL 79-97 Not Available [facility] ([facility]) [address] [place], [address], 04/15/2024 09:15:08 04/14/20 24 04/15/2024 CBC WITH DIFFE RENTI AL/PL ATELE T MCH 29.2 pg 26.6-3 3.0 Not Available [facility] ([facility]) [address] [facility], [place], [address], 04/15/2024 09:15:08 04/14/20 24 04/15/2024 CBC WITH DIFFE RENTI AL/PL ATELE T MCHC 33.2 g/dL 31.5-3 5.7 Not Available [facility] ([facility]) [address] [place], [address], 04/15/2024 09:15:08 04/14/20 24 04/15/2024 CBC WITH DIFFE RENTI AL/PL ATELE T RDW 13.8 % 11.7-1 5.4 Not Available [facility] ([facility]) [address] [facility], [place], [address], 04/15/2024 09:15:08 04/14/20 24 04/15/2024 CBC WITH DIFFE RENTI AL/PL ATELE T platelets 331 x10e3 /uL 150-45 0 Not Available [facility] ([facility]) [address] [facility], [place], [address], 04/15/2024 09:15:08 04/14/20 24 04/15/2024 CBC WITH DIFFE RENTI AL/PL ATELE T neutrophils 59 % notest ab. Not Available [facility] ([facility]) [address] [facility], [place], [address], 04/15/2024 09:15:08 04/14/20 24 04/15/2024 CBC WITH DIFFE RENTI AL/PL ATELE T lymphs 32 % notest ab. Not Available [facility] ([facility]) [address] [facility], [place], [address], 04/15/2024 09:15:08 04/14/20 24 04/15/2024 CBC WITH DIFFE RENTI AL/PL ATELE T monocytes 7 % notest ab. Not Available [facility] ([facility]) [address] [facility], [place], [address], 04/15/2024 09:15:08 04/14/20 24 04/15/2024 CBC WITH DIFFE RENTI AL/PL ATELE T eos 2 % notest ab. Not Available [facility] ([facility]) [address] [facility], [place], [address], 04/15/2024 09:15:08 04/14/20 24 04/15/2024 CBC WITH DIFFE RENTI AL/PL ATELE T basos 0 % notest ab. Not Available [facility] ([facility]) [address] [facility], [place], [address], 04/15/2024 09:15:08 04/14/20 24 04/15/2024 CBC WITH DIFFE RENTI AL/PL ATELE T neutrophils (absolute) 4.9 x10e3 /uL 1.4-7. 0 Not Available [facility] ([facility]) [address] [facility], [place], [address], 04/15/2024 09:15:08 04/14/20 24 04/15/2024 CBC WITH DIFFE RENTI AL/PL ATELE T lymphs (absolute) 2.7 x10e3 /uL 0.7-3. 1 Not Available [facility] ([facility]) [address] [place], [address], 04/15/2024 09:15:08 04/14/20 24 04/15/2024 CBC WITH DIFFE RENTI AL/PL ATELE T monocytes(ab solute) 0.6 x10e3 /uL 0.1-0. 9 Not Available [facility] ([facility]) [address] [place], [address], 04/15/2024 09:15:08 04/14/20 24 04/15/2024 CBC WITH DIFFE RENTI AL/PL ATELE T eos (absolute) 0.1 x10e3 /uL 0.0-0. 4 Not Available [facility] ([facility]) [address] [place], [address], 04/15/2024 09:15:08 04/14/20 24 04/15/2024 CBC WITH DIFFE RENTI AL/PL ATELE T baso (absolute) 0.0 x10e3 /uL 0.0-0. 2 Not Available [facility] ([facility]) [address] [place], [address], 04/15/2024 09:15:08 04/14/20 24 04/15/2024 CBC WITH DIFFE RENTI AL/PL ATELE T immature granulocytes 0 % notest ab. Not Available [facility] ([facility]) [address] [place], [address], 04/15/2024 09:15:08 04/14/2004/15/2024 CBC WITH DIFFE RENTI AL/PL ATELE T immature grans (abs) 0.0 x10e3 /uL 0.0-0. 1 Not Available [facility] ([facility]) [address] [place], [address], 04/15/2024 09:15:08 04/14/20 24 04/15/2024 TRIIO DOTHY PHIL E (T3), FREE triiodothyro nine (T3), free 3.2 pg/mL 2.0-4. 4 Not Available [facility] ([facility]) [address] [place], [address], 04/15/2024 09:15:10 04/14/2004/15/2024 T4,FR EE(DI RECT) T4,free(dire ct) 1.19 NG/dL 0.82-1 .77 Not Available [facility] ([facility]) [address] [place], [address], 04/15/2024 09:15:11 09/16/1909/16/[address] PROBL EM request problem TNP abnormal Comme nt: Test Not Perfo rmed. Patie nt was unabl e to provi de a self- colle cted speci men for the reque sted testi ng. The follo wing test( s) were not perfo rmed: TEST: 20091 2 Salmo eloise /Shig clemente Scree n Panel : [id number] Cultu re Panel : [id number] 5 E coli Shiga Toxin EIA Panel : 62905 3 Not Available [facility] ([facility]) [address] [place], [address], 09/16/2024 15:12:57 09/16/1909/16/2024 COMP. METAB OLIC PANEL (14) glucose 105 mg/dL 70-99 above high normal Not Available [facility] ([facility]) [address] [place], [address], 09/16/2024 15:12:58 09/16/19 25 09/16/2024 COMP. METAB OLIC PANEL (14) BUN 32 mg/dL 8-27 above high normal Not Available [facility] ([facility]) [address] [place], [address], 09/16/2024 15:12:58 09/16/19 25 09/16/2024 COMP. METAB OLIC PANEL (14) creatinine 1.39 mg/dL 0.57-1 .00 above high normal Not Available [facility] ([facility]) [address] [place], [address], 09/16/2024 15:12:58 09/16/19 25 09/16/2024 COMP. METAB OLIC PANEL (14) eGFR 42 mL/mi n/1.7 3 >59 below low normal Not Available [facility] ([facility]) [address] [place], [address], 09/16/2024 15:12:58 09/16/19 25 09/16/2024 COMP. METAB OLIC PANEL (14) BUN/creatini ne ratio 23 12-28 Not Available [facility] ([facility]) [address] [place], [address], 09/16/2024 15:12:58 09/16/19 25 09/16/2024 COMP. METAB OLIC PANEL (14) sodium 140 mmol/ L 134-14 4 Not Available [facility] ([facility]) [address] [place], [address], 09/16/2024 15:12:58 09/16/19 25 09/16/2024 COMP. METAB OLIC PANEL (14) potassium 3.4 mmol/ L 3.5-5. 2 below low normal Not Available [facility] ([facility]) [address] [place], [address], 09/16/2024 15:12:58 09/16/19 25 09/16/2024 COMP. METAB OLIC PANEL (14) chloride 98 mmol/ L 96-106 Not Available [facility] ([facility]) [address] [place], [address], 09/16/2024 15:12:58 09/16/19 25 09/16/2024 COMP. METAB OLIC PANEL (14) carbon dioxide, total 25 mmol/ L - Not Available [facility] ([facility]) [address] [place], [address], 09/16/2024 15:12:58 09/16/19 25 09/16/2024 COMP. METAB OLIC PANEL (14) calcium 9.8 mg/dL 8.7-10 .3 Not Available [facility] ([facility]) [address] [place], [address], 09/16/2024 15:12:58 09/16/19 25 09/16/2024 COMP. METAB OLIC PANEL (14) protein, total 6.7 g/dL 6.0-8. 5 Not Available [facility] ([facility] [address] [facility] [place], [address], 09/16/2024 15:12:58 09/16/19 25 09/16/2024 COMP. METAB OLIC PANEL (14) albumin 4.3 g/dL 3.9-4. 9 Not Available [facility] ([facility] [address] [place], [address], 09/16/2024 15:12:58 09/16/19 25 09/16/2024 COMP. METAB OLIC PANEL (14) globulin, total 2.4 g/dL 1.5-4. 5 Not Available [facility] ([facility]) [address] [place], [address], 09/16/2024 15:12:58 09/16/19 25 09/16/2024 COMP. METAB OLIC PANEL (14) bilirubin, total 0.5 mg/dL 0.0-1. 2 Not Available [facility] ([facility]) [address] [place], [address], 09/16/2024 15:12:58 09/16/19 25 09/16/2024 COMP. METAB OLIC PANEL (14) alkaline phosphatase 55 IU/L 44-121 Not Available [facility] ([facility]) [address] [place], [address], 09/16/2024 15:12:58 09/16/19 25 09/16/2024 COMP. METAB OLIC PANEL (14) AST (SGOT) 18 IU/L 0-40 Not Available [facility] ([facility]) [address] [place], [address], 09/16/2024 15:12:58 09/16/19 25 09/16/2024 COMP. METAB OLIC PANEL (14) ALT (SGPT) 14 IU/L 0-32 Not Available [facility] ([facility]) [address] [place], [address], 09/16/2024 15:12:58 09/16/19 25 09/16/2024 CDIFF TOXIN S A+B+S TOOL CULTU RE salmonella/s higella screen - Test not perfo rmed Not Available [facility] ([facility]) [address] [place], [address], 09/16/2024 15:12:59 09/16/19 25 09/16/2024 CDIFF TOXIN S A+B+S TOOL CULTU RE campylobacte r culture - Test not perfo rmed Not Available [facility] ([facility]) [address] [place], [address], 09/16/2024 15:12:59 09/16/19 25 09/16/2024 CDIFF TOXIN S A+B+S TOOL CULTU RE E coli shiga toxin EIA - Test not perfo rmed Not Available [facility] ([facility]) [address] [place], [address], 09/16/2024 15:12:59 09/16/19 25 09/16/2024 CDIFF TOXIN S A+B+S TOOL CULTU RE C difficile toxins A+B, EIA NEGATI VE negati ve Not Available [facility] ([facility]) [address] [place], [address], 09/16/2024 15:12:59 09/16/19 25 09/16/2024 CBC WITH DIFFE RENTI AL/PL ATELE T WBC 7.5 x10e3 /uL 3.4-10 .8 Not Available [facility] ([facility]) [address] [place], [address], 09/16/2024 15:13:00 09/16/19 25 09/16/2024 CBC WITH DIFFE RENTI AL/PL ATELE T RBC 4.54 x10e6 /uL 3.77-5 .28 Not Available [facility] ([facility]) [address] [place], [address], 09/16/2024 15:13:00 09/16/19 25 09/16/2024 CBC WITH DIFFE RENTI AL/PL ATELE T hemoglobin 12.8 g/dL 11.1-1 5.9 Not Available [facility] ([facility]) [address] [place], [address], 09/16/2024 15:13:00 09/16/19 25 09/16/2024 CBC WITH DIFFE RENTI AL/PL ATELE T hematocrit 39.8 % 34.0-4 6.6 Not Available [facility] ([facility]) [address] [place], [address], 09/16/2024 15:13:00 09/16/19 25 09/16/2024 CBC WITH DIFFE RENTI AL/PL ATELE T MCV 88 fL 79-97 Not Available [facility] ([facility]) [address] [facility], [place], [address], 09/16/2024 15:13:00 09/16/19 25 09/16/2024 CBC WITH DIFFE RENTI AL/PL ATELE T MCH 28.2 pg 26.6-3 3.0 Not Available [facility] ([facility]) [address] [facility], [place], [address], 09/16/2024 15:13:00 09/16/19 25 09/16/2024 CBC WITH DIFFE RENTI AL/PL ATELE T MCHC 32.2 g/dL 31.5-3 5.7 Not Available [facility] ([facility]) [address] [facility], [place], [address], 09/16/2024 15:13:00 09/16/19 25 09/16/2024 CBC WITH DIFFE RENTI AL/PL ATELE T RDW 13.6 % 11.7-1 5.4 Not Available [facility] ([facility]) [address] [facility], [place], [address], 09/16/2024 15:13:00 09/16/19 25 09/16/2024 CBC WITH DIFFE RENTI AL/PL ATELE T platelets 306 x10e3 /uL 150-45 0 Not Available [facility] ([facility]) [address] [place], [address], 09/16/2024 15:13:00 09/16/19 25 09/16/2024 CBC WITH DIFFE RENTI AL/PL ATELE T neutrophils 59 % notest ab. Not Available [facility] ([facility]) [address] [place], [address], 09/16/2024 15:13:00 09/16/19 25 09/16/2024 CBC WITH DIFFE RENTI AL/PL ATELE T lymphs 31 % notest ab. Not Available [facility] ([facility]) [address] [facility], [place], [address], 09/16/2024 15:13:00 09/16/19 25 09/16/2024 CBC WITH DIFFE RENTI AL/PL ATELE T monocytes 7 % notest ab. Not Available [facility] ([facility]) [address] [facility], [place], [address], 09/16/2024 15:13:00 09/16/19 25 09/16/2024 CBC WITH DIFFE RENTI AL/PL ATELE T eos 2 % notest ab. Not Available [facility] ([facility]) [address] [facility], [place], [address], 09/16/2024 15:13:00 09/16/19 25 09/16/2024 CBC WITH DIFFE RENTI AL/PL ATELE T basos 1 % notest ab. Not Available [facility] ([facility]) [address] [facility], [place], [address], 09/16/2024 15:13:00 09/16/19 25 09/16/2024 CBC WITH DIFFE RENTI AL/PL ATELE T neutrophils (absolute) 4.4 x10e3 /uL 1.4-7. 0 Not Available [facility] ([facility]) [address] [facility], [place], [address], 09/16/2024 15:13:00 09/16/19 25 09/16/2024 CBC WITH DIFFE RENTI AL/PL ATELE T lymphs (absolute) 2.3 x10e3 /uL 0.7-3. 1 Not Available [facility] ([facility]) [address] [facility], [place], [address], 09/16/2024 15:13:00 09/16/19 25 09/16/2024 CBC WITH DIFFE RENTI AL/PL ATELE T monocytes(ab solute) 0.5 x10e3 /uL 0.1-0. 9 Not Available [facility] ([facility]) [address] [facility], [place], [address], 09/16/2024 15:13:00 09/16/19 25 09/16/2024 CBC WITH DIFFE RENTI AL/PL ATELE T eos (absolute) 0.1 x10e3 /uL 0.0-0. 4 Not Available [facility] ([facility]) [address] [place], [address], 09/16/2024 15:13:00 09/16/19 25 09/16/2024 CBC WITH DIFFE RENTI AL/PL ATELE T baso (absolute) 0.1 x10e3 /uL 0.0-0. 2 Not Available [facility] ([facility]) [address] [facility], [place], [address], 09/16/2024 15:13:00 09/16/19 25 09/16/2024 CBC WITH DIFFE RENTI AL/PL ATELE T immature granulocytes 0 % notest ab. Not Available [facility] ([facility]) [address] [facility], [place], [address], 09/16/2024 15:13:00 09/16/19 25 09/16/2024 CBC WITH DIFFE RENTI AL/PL ATELE T immature grans (abs) 0.0 x10e3 /uL 0.0-0. 1 Not Available [facility] ([facility]) [address] [place], [address], 09/16/2024 15:13:00 09/16/19 25 09/18/2024 OVA + ANNA ITE EXAM ova + parasite exam FINAL REPORT These resul ts were obtai av using wet prepa ratio n(s) and trich geovany stain ed smear . This test does not inclu de testi ng for Crypt ospor idium parvu m, Cyclo spora , or Micro spori rakan. Not Available [facility] ([facility]) [address] [facility], [place], [address], 09/18/2024 13:12:26 09/16/19 25 09/18/2024 OVA + ANNA ITE EXAM result 1 COMMEN T No ova, cysts , or anna ites seen. One negat mercedes speci men does not rule out the possi bilit y of a anna itic infec tion. Not Available [facility] ([facility]) [address] [facility], [place], [address], 09/18/2024 13:12:26 01/22/20 25 01/22/2025 LIPID PANEL cholesterol, total 144 mg/dL 100-19 9 Not Available [facility] ([facility]) [address] [place], [address], 01/22/2025 09:09:33 01/22/20 25 01/22/2025 LIPID PANEL triglyceride s 87 mg/dL 0-149 Not Available [facility] ([facility]) [address] [place], [address], 01/22/2025 09:09:33 01/22/20 25 01/22/2025 LIPID PANEL HDL cholesterol 58 mg/dL >39 Not Available [facility] ([facility]) [address] [place], [address], 01/22/2025 09:09:33 01/22/20 25 01/22/2025 LIPID PANEL VLDL cholesterol josé antonio 16 mg/dL 5-40 Not Available [facility] ([facility]) [address] [place], [address], 01/22/2025 09:09:33 01/22/20 25 01/22/2025 LIPID PANEL LDL chol calc ([facility]) 70 mg/dL 0-99 Not Available [facility] ([facility]) [address] [place], [address], 01/22/2025 09:09:33 01/22/2001/21/2025 COMP. METAB OLIC PANEL (14) interpretati on: COMMEN T GFR estim ate at the follo wing level for >or=3 month s is class ified as follo ws: GFR WITH KIDNE Y DAMAG E WITHO UT KIDNE Y DAMAG E >or=9 0 Stage 1 Arlette l 60-89 Stage 2 Decr eased GFR 30-59 Stage 3 Stage 3 15-29 Stage 4 Stage 4 <15 (or dialy sis) Stage 5 Stage 5 Estim ated GFR will over estim ate true GFR if serum creat inine is risin g as in acute renal failu re and will under estim ate true GFR if serum creat inine is decli asia as in resol ving acute renal failu re. Addit ional infor matio n may be found at www.k doqi. org. Not Available [facility] ([facility]) [address] [place], [address], 01/22/2025 09:09:34 01/22/2001/22/2025 COMP. METAB OLIC PANEL (14) glucose 93 mg/dL 70-99 Not Available [facility] ([facility]) [address] [place], [address], 01/22/2025 09:09:34 01/22/2001/22/2025 COMP. METAB OLIC PANEL (14) BUN 34 mg/dL 8-27 above high normal Not Available [facility] ([facility]) [address] [place], [address], 01/22/2025 09:09:34 01/22/2001/22/2025 COMP. METAB OLIC PANEL (14) creatinine 1.39 mg/dL 0.57-1 .00 above high normal Not Available [facility] ([facility]) [address] [place], [address], 01/22/2025 09:09:34 01/22/20 25 01/22/2025 COMP. METAB OLIC PANEL (14) eGFR 42 mL/mi n/1.7 3 >59 below low normal Not Available [facility] ([facility]) [address] [facility], [place], [address], 01/22/2025 09:09:34 01/22/20 25 01/22/2025 COMP. METAB OLIC PANEL (14) BUN/creatini ne ratio 24 12-28 Not Available [facility] ([facility]) [address] [facility], [place], [address], 01/22/2025 09:09:34 01/22/20 25 01/22/2025 COMP. METAB OLIC PANEL (14) sodium 140 mmol/ L 134-14 4 Not Available [facility] ([facility]) [address] [facility], [place], [address], 01/22/2025 09:09:34 01/22/20 25 01/22/2025 COMP. METAB OLIC PANEL (14) potassium 3.8 mmol/ L 3.5-5. 2 Not Available [facility] ([facility]) [address] [place], [address], 01/22/2025 09:09:34 01/22/20 25 01/22/2025 COMP. METAB OLIC PANEL (14) chloride 98 mmol/ L 96-106 Not Available [facility] ([facility]) [address] [place], [address], 01/22/2025 09:09:34 01/22/20 25 01/22/2025 COMP. METAB OLIC PANEL (14) carbon dioxide, total 26 mmol/ L 20-29 Not Available [facility] ([facility]) [address] [place], [address], 01/22/2025 09:09:34 01/22/20 25 01/22/2025 COMP. METAB OLIC PANEL (14) calcium 9.9 mg/dL 8.7-10 .3 Not Available [facility] ([facility]) [address] [facility], [place], [address], 01/22/2025 09:09:34 01/22/20 25 01/22/2025 COMP. METAB OLIC PANEL (14) protein, total 6.9 g/dL 6.0-8. 5 Not Available [facility] ([facility]) [address] [place], [address], 01/22/2025 09:09:34 01/22/20 25 01/22/2025 COMP. METAB OLIC PANEL (14) albumin 4.4 g/dL 3.9-4. 9 Not Available [facility] ([facility]) [address] [facility], [place], [address], 01/22/2025 09:09:34 01/22/20 25 01/22/2025 COMP. METAB OLIC PANEL (14) globulin, total 2.5 g/dL 1.5-4. 5 Not Available [facility] ([facility]) [address] [place], [address], 01/22/2025 09:09:34 01/22/20 25 01/22/2025 COMP. METAB OLIC PANEL (14) bilirubin, total 0.5 mg/dL 0.0-1. 2 Not Available [facility] ([facility]) [address] [place], [address], 01/22/2025 09:09:34 01/22/20 25 01/22/2025 COMP. METAB OLIC PANEL (14) alkaline phosphatase 56 IU/L 44-121 Eff ectiv e Septe mber 2024 Alkal ine Phosp hatas e refer ence inter ferny will be pena ing to: Age Male Femal e 0 - 5 days 47 - 127 47 - 127 6 - 10 days 29 - 242 29 - 242 11 - 20 days 109 - 357 109 - 357 21 - 30 days 94 - 494 94 - 494 1 - 2 month s 149 - 539 149 - 539 3 - 6 month s 131 - 452 131 - 452 7 - 11 month s 117 - 401 117 - 401 12 month s - 6 years 158 - 369 158 - 369 7 - 12 years 150 - 409 150 - 409 13 years 156 - 435 78 - 227 14 years 114 - 375 64 - 161 15 years 88 - 279 56 - 134 16 years 74 - 207 51 - 121 17 years 63 - 161 47 - 113 18 - 20 years 51 - 125 42 - 106 21 - 50 years 47 - 123 41 - 116 51 - 80 years 49 - 135 51 - 125 >80 years 48 - 129 48 - 129 Not Available [facility] ([facility]) [address] [place], [address], 01/22/2025 09:09:34 01/22/20 25 01/22/2025 COMP. METAB OLIC PANEL (14) AST (SGOT) 18 IU/L 0-40 Not Available [facility] ([facility]) [address] [place], [address], 01/22/2025 09:09:34 01/22/20 25 01/22/2025 COMP. METAB OLIC PANEL (14) ALT (SGPT) 16 IU/L 0-32 Not Available [facility] ([facility]) [address] [place], [address], 01/22/2025 09:09:34 01/22/20 25 01/22/2025 HEMOG LOBIN A1C hemoglobin A1C 5.9 % 4.8-5. 6 above high normal Predi abete s: 5.7 - 6.4 Diabe desire: >6.4 Glyce nithin contr ol for adult s with diabe desire: <7.0 Not Available [facility] ([facility]) [address] [place], [address], 01/22/2025 09:09:34 01/22/20 25 01/22/2025 CBC WITH DIFFE RENTI AL/PL ATELE T WBC 8.5 x10e3 /uL 3.4-10 .8 Not Available [facility] ([facility]) [address] [facility], [place], [address], 01/22/2025 09:09:35 01/22/2001/22/2025 CBC WITH DIFFE RENTI AL/PL ATELE T RBC 4.31 x10e6 /uL 3.77-5 .28 Not Available [facility] ([facility]) [address] [facility], [place], [address], 01/22/2025 09:09:35 01/22/20 25 01/22/2025 CBC WITH DIFFE RENTI AL/PL ATELE T hemoglobin 12.5 g/dL 11.1-1 5.9 Not Available [facility] ([facility]) [address] [facility], [place], [address], 01/22/2025 09:09:35 01/22/20 25 01/22/2025 CBC WITH DIFFE RENTI AL/PL ATELE T hematocrit 39.3 % 34.0-4 6.6 Not Available [facility] ([facility]) [address] [facility], [place], [address], 01/22/2025 09:09:35 01/22/20 25 01/22/2025 CBC WITH DIFFE RENTI AL/PL ATELE T MCV 91 fL 79-97 Not Available [facility] ([facility]) [address] [place], [address], 01/22/2025 09:09:35 01/22/2001/22/2025 CBC WITH DIFFE RENTI AL/PL ATELE T MCH 29.0 pg 26.6-3 3.0 Not Available [facility] ([facility]) [address] [facility], [place], [address], 01/22/2025 09:09:35 01/22/20 25 01/22/2025 CBC WITH DIFFE RENTI AL/PL ATELE T MCHC 31.8 g/dL 31.5-3 5.7 Not Available [facility] ([facility]) [address], [place], [address], 01/22/2025 09:09:35 01/22/2001/22/2025 CBC WITH DIFFE RENTI AL/PL ATELE T RDW 13.3 % 11.7-1 5.4 Not Available [facility] ([facility]) [address], [place], [address], 01/22/2025 09:09:35 01/22/20 25 01/22/2025 CBC WITH DIFFE RENTI AL/PL ATELE T platelets 320 x10e3 /uL 150-45 0 Not Available [facility] ([facility]) [address] [facility], [place], [address], 01/22/2025 09:09:35 01/22/20 25 01/22/2025 CBC WITH DIFFE RENTI AL/PL ATELE T neutrophils 64 % notest ab. Not Available [facility] ([facility]) [address], [place], [address], 01/22/2025 09:09:35 01/22/20 25 01/22/2025 CBC WITH DIFFE RENTI AL/PL ATELE T lymphs 27 % notest ab. Not Available [facility] ([facility]) [address] [facility], [place], [address], 01/22/2025 09:09:35 01/22/20 25 01/22/2025 CBC WITH DIFFE RENTI AL/PL ATELE T monocytes 6 % notest ab. Not Available [facility] ([facility]) [address] [facility], [place], [address], 01/22/2025 09:09:35 01/22/20 25 01/22/2025 CBC WITH DIFFE RENTI AL/PL ATELE T eos 1 % notest ab. Not Available [facility] ([facility]) [address] [facility], [place], [address], 01/22/2025 09:09:35 01/22/20 25 01/22/2025 CBC WITH DIFFE RENTI AL/PL ATELE T basos 1 % notest ab. Not Available [facility] ([facility]) [address] [facility], [place], [address], 01/22/2025 09:09:35 01/22/20 25 01/22/2025 CBC WITH DIFFE RENTI AL/PL ATELE T neutrophils (absolute) 5.4 x10e3 /uL 1.4-7. 0 Not Available [facility] ([facility]) [address] [facility], [place], [address], 01/22/2025 09:09:35 01/22/20 25 01/22/2025 CBC WITH DIFFE RENTI AL/PL ATELE T lymphs (absolute) 2.3 x10e3 /uL 0.7-3. 1 Not Available [facility] ([facility]) [address] [facility], [place], [address], 01/22/2025 09:09:35 01/22/20 25 01/22/2025 CBC WITH DIFFE RENTI AL/PL ATELE T monocytes(ab solute) 0.5 x10e3 /uL 0.1-0. 9 Not Available [facility] ([facility]) [address] [facility], [place], [address], 01/22/2025 09:09:35 01/22/20 25 01/22/2025 CBC WITH DIFFE RENTI AL/PL ATELE T eos (absolute) 0.1 x10e3 /uL 0.0-0. 4 Not Available [facility] ([facility]) [address] [place], [address], 01/22/2025 09:09:35 01/22/20 25 01/22/2025 CBC WITH DIFFE RENTI AL/PL ATELE T baso (absolute) 0.1 x10e3 /uL 0.0-0. 2 Not Available [facility] ([facility]) [address] [facility], [place], [address], 01/22/2025 09:09:35 01/22/2001/22/2025 CBC WITH DIFFE RENTI AL/PL ATELE T immature granulocytes 1 % notest ab. Not Available [facility] ([facility]) [address] [facility], [place], [address], 01/22/2025 09:09:35 01/22/20 25 01/22/2025 CBC WITH DIFFE RENTI AL/PL ATELE T immature grans (abs) 0.1 x10e3 /uL 0.0-0. 1 Not Available [facility] ([facility]) [address] [facility], [place], [address], 01/22/2025 09:09:35 09/12/19 25 09/11/2024 MAMMO , scree asia, digit al, bilat eral No observ ation record ed. [facility] [address], [place], [address], 09/12/2024 10:58:05 09/12/19 25 09/11/2024 MAMMO , scree asia, digit al, bilat eral No observ ation record ed. [facility] [address], [place], [address], 09/12/2024 10:59:00 10/03/19 25 10/02/2024 MAMMO , scree asia, digit al, bilat eral No observ ation record ed. [facility] [address], [place], [address], 10/03/2024 15:01:08 10/03/19 25 10/02/2024 MAMMO , scree asia, digit al, bilat eral No observ ation record ed. [facility] [address], [place], [address], 10/03/2024 15:01:42 10/04/19 US, breas t, bilat eral, compl ete No observ ation record ed. [facility] [address], [place], [address], 10/03/2024 15:01:08 10/04/19 US, breas t, bilat eral, compl ete No observ ation record ed. [facility] [address], [place], [address], 10/03/2024 15:01:42 11/12/19 25 11/11/2024 US, breas t No observ ation record ed. [email or web address] [facility] [address], [place], [address], 11/11/2024 20:04:42 04/08/20 25 04/06/2025 MRI, breas t, unila teral , w/o contr ast No observ ation record ed. [facility] [address], [place], [address], 04/14/2025 15:08:17 Result Notes None recorded. Problems Name Problem SNOMED Code Status Onset Date Resolution Date Notes Provider Name and Address Organization Details Recorded Time Essential hypertensio n 73225746 Active 2023 Olivia Butler MD Attn: Dave hughes,[address] [facility], [place], [address], [facility] 4 10:50:31 Hyperlipide reese 09377389 Active 2023 Olivia Butler MD Attn: Dave hughes,[address] [facility] [address], [place], [address], [facility] 4 10:50:33 Anxiety 63701669 Active 2023 Olivia Butler MD Attn: Dave hughes[address] [facility] [address], [place], [address], [place] - [facility] 4 10:50:34 Cough 93753536 Active 2023 Olivia Butler MD Attn: Dave hughes,[address] [facility] [address], [place], [address], [place] - [facility] 4 10:50:37 Gastroesoph ageal reflux disease without esophagitis 609260714 Active 2023 Olivia Butler MD Attn: Dave hughes,[address] [facility] [address], [place], [address], [place] - [facility] 4 10:50:38 HIV screening declined [id number] 00 Active 2023 Olivia Butler MD Attn: Dave hughes,[address] [facility] [address], [place], [address], [place] - [facility] 4 15:42:32 Prediabetes 918883709 Active 2024 Olivia Butler MD Attn: Dave hughes,[address] [facility] [address], [place], [address], [place] - [facility] 5 20:42:57 Obesity caused by energy imbalance 617824195 Active 2024 Tatianna Hector MA null, [place] - [facility] 5 12:10:03 Body mass index 30+ - obesity 665259450 Active 2024 Tatianna Hector [place], [place] [facility] 5 12:10:04 Problem Notes None recorded. Procedures Surgical History Date Name Laterality Status Provider Name and Address Organization Details Recorded Time 01/22/20 hysteroscopy completed Amber Grewal [place] - [place] 01/25/2024 10:39:31 Arthroscopic Surgery completed Eric Weeks [place] - [facility] 08/16/2023 10:18:57 Joint Replacement completed ELENA Gould - [facility] 08/16/2023 10:19:04 Breast Surgery completed ELENA Gould - [facility] 08/16/2023 10:19:12 Dilation and Curettage completed Eric Weeks MA [facility] 08/16/2023 10:19:20 Imaging Results None recorded. Procedure Notes None recorded. Medical Equipment None Reported. Allergies Allergen ID Allergen Name Allergen Category Reaction Reaction Severity Criticality Documentation Date Start Date Code Code System Note Provider Name and Address Organization Details Recorded Time 497677 Substance with sulfonami de structure and antibacte rial mechanism of action (substanc e) medicatio n Not available Not available Not available 08/16/20232023 17480 8003 SNOMED Not Available [facility] 4 12:05:06 436141 Product containin g penicilli n (product) medicatio n Not available Not available Not available 08/16/20232023 75229 8001 SNOMED Not Available [facility] 4 12:05:06 096747 trimethop rim medicatio n hives Not available Not available 07/07/2024 40207 RxNorm ELENA Morfin, [place] - [facility] 5 11:04:55 [id number] sulfameth oxazole medicatio n hives Not available Not available 03/09/2025 44605 RxNorm Not Available wes - External Data Service - prod 5 15:27:25 Medications Name Sig Start Date Stop Date Status Note LastModified by Organization Details LastModified Time losartan 50 mg tablet TAKE 1 TABLET BY MOUTH EVERY DAY 05/28 completed Not Available Not Available Not Available nifedipine ER 30 mg tablet,exte nded release 24 hr TAKE 1 TABLET BY MOUTH EVERY DAY 01/13 completed Not Available Not Available Not Available amoxicillin 500 mg capsule TAKE 1 CAPSULE BY MOUTH TWICE A DAY FOR 10 DAYS 08/15 completed Not Available Not Available Not Available bupropion HCl SR 150 mg tablet,12 hr sustained-r elease TAKE 1 TABLET BY MOUTH TWICE A DAY 2024 active Not Available Not Available Not Avai lable carvedilol 6.25 mg tablet TAKE 1 TABLET BY MOUTH TWICE A DAY 2024 active Not Available Not Available Not Avai lable doxycycline hyclate 100 mg capsule TAKE 1 CAPSULE BY MOUTH TWICE A DAY WITH MEALS FOR 7 DAYS 08/15 completed Not Available Not Available Not Available atorvastati n 10 mg tablet TAKE 1 TABLET BY MOUTH EVERY DAY 2024 active Not Available Not Available Not Avai lable azithromyci n 250 mg tablet TAKE 2 TABLETS BY MOUTH TODAY, THEN TAKE 1 TABLET DAILY FOR 4 DAYS DIRECTED 12/09 completed Not Available Not Available Not Available meloxicam 15 mg tablet TAKE 1 TABLET BY MOUTH EVERY DAY 01/12 completed Not Available Not Available Not Available sertraline 100 mg tablet TAKE 1 AND 1/2 TABLETS BY MOUTH DAILY 2024 active Not Available Not Available Not Avai lable nifedipine ER 30 mg tablet,exte nded release TAKE 1 TABLET BY MOUTH EVERY DAY 2024 active Not Available Not Available Not Avai lable chlorthalid one 25 mg tablet TAKE 1 TABLET BY MOUTH EVERY DAY 2024 active Not Available Not Available Not Avai lable ciclopirox 8 % topical solution USE DAILY ON AFFECTED NAILS,INS WANTS PA 07/07 completed Not Available Not Available Not Available potassium 99 mg tablet Take 1 tablet every day by oral route. active Not Available Not Available No t Available famotidine 20 mg tablet TAKE 1 TABLET BY MOUTH EVERY DAY 2024 active Not Available Not Available Not Avai lable phenazopyri dine 100 mg tablet TAKE 2 TABLETS ORAL ROUTE 3 TIMES PER DAY FOR 2 DAYS 08/15 completed Not Available Not Available Not Available benzonatate 100 mg capsule Take 1 capsule 3 times a day by oral route for 10 days. 12/09 completed Not Available Not Available Not Available pantoprazol e 40 mg tablet,darren yed release TAKE 1 TABLET BY MOUTH EVERY DAY active Not Available Not Available No t Available losartan 25 mg tablet TAKE 1 TABLET BY MOUTH EVERY DAY 08/15 completed Not Available Not Available Not Available levofloxaci n 500 mg tablet TAKE 1 TABLET BY MOUTH EVERY DAY FOR 7 DAYS 07/07 completed Not Available Not Available Not Available nifedipine ER 60 mg tablet,exte nded release TAKE 1 TABLET BY MOUTH EVERY DAY 08/15 completed Not Available Not Available Not Available rosuvastati n 10 mg tablet Take 1 tablet every day by oral route. 10/06 completed Not Available Not Available Not Available nitrofurant oin monohydrate /macrocryst als 100 mg capsule TAKE 1 CAPSULE BY MOUTH EVERY 12 HOURS FOR 10 DAYS 08/15 completed Not Available Not Available Not Available Wegov[facility] 1.7 mg/0.75 mL subcutaneou s pen injector INJECT 1.7MG WEEKLY 01/12 completed Not Available Not Available Not Available Wegovy 1 mg/0.5 mL subcutaneou s pen injector INJECT 1MG WEEKLY FOR 4 WEEKS active Not Available Not Available No t Available Wegovy 0.25 mg/0.5 mL subcutaneou s pen injector INJECT 0.25MG WEEKLY FOR 8WKS THEN GO TO 0.5MG WEEKLY 11/25 completed Not Available Not Available Not Available Wegovy 0.5 mg/0.5 mL subcutaneou s pen injector INJECT 0.5MG WEEKLY FOR 4 WEEKS THEN GO TO 1MG WEEKLY 11/25 completed Not Available Not Available Not Available Vitals Date Recorded Heart rate Systolic And Diastolic Provider Name and Address Organization Details Last Updated DateTime 05/23/2024 83 /min 140/69 mm[Hg] Not Available [facility] 0 05/23/2024 15:16:37 Date Recorded Heart rate Systolic And Diastolic Provider Name and Address Organization Details Last Updated DateTime 05/26/2024 67 /min 152/69 mm[Hg] Not Available [facility] 0 05/26/2024 11:51:08 Date Recorded Heart rate Systolic And Diastolic Provider Name and Address Organization Details Last Updated DateTime 05/28/2024 74 /min 142/68 mm[Hg] Not Available [facility] 0 05/28/2024 09:46:01 Date Recorded Heart rate Systolic And Diastolic Provider Name and Address Organization Details Last Updated DateTime 06/02/2024 65 /min 152/74 mm[Hg] Not Available [facility] 0 06/02/2024 16:26:34 Date Recorded Heart rate Systolic And Diastolic Provider Name and Address Organization Details Last Updated DateTime 06/04/2024 75 /min 154/83 mm[Hg] Not Available [facility] 0 06/04/2024 15:14:16 Date Recorded Heart rate Systolic And Diastolic Provider Name and Address Organization Details Last Updated DateTime 06/06/2024 81 /min 129/85 mm[Hg] Not Available [facility] 0 06/06/2024 15:15:37 Date Recorded Heart rate Systolic And Diastolic Provider Name and Address Organization Details Last Updated DateTime 06/09/2024 86 /min 124/74 mm[Hg] Not Available [facility] 0 06/09/2024 13:08:34 Date Recorded Heart rate Systolic And Diastolic Provider Name and Address Organization Details Last Updated DateTime 06/11/2024 89 /min 145/78 mm[Hg] Not Available [facility] 0 06/11/2024 09:08:25 Date Recorded Heart rate Heart rate Systolic And Diastolic Systolic And Diastolic Provider Name and Address Organization Details Last Updated DateTime 06/13/2024 75 /min 71 /min 156/69 mm[Hg] 146/75 mm[Hg] Not Available [facility]! 06/13/2024 10:38:27 Date Recorded Heart rate Heart rate Systolic And Diastolic Systolic And Diastolic Provider Name and Address Organization Details Last Updated DateTime 06/16/2024 70 /min 70 /min 160/76 mm[Hg] 160/80 mm[Hg] Not Available [facility] 06/16/2024 16:25:48 Date Recorded Heart rate Heart rate Systolic And Diastolic Systolic And Diastolic Provider Name and Address Organization Details Last Updated DateTime 06/18/2024 80 /min 86 /min 155/73 mm[Hg] 140/75 mm[Hg] Not Available [facility] 06/18/2024 12:50:23 Date Recorded Heart rate Systolic And Diastolic Provider Name and Address Organization Details Last Updated DateTime 06/20/2024 73 /min 166/71 mm[Hg] Not Available [facility] 0 06/20/2024 10:10:05 Date Recorded Heart rate Systolic And Diastolic Provider Name and Address Organization Details Last Updated DateTime 06/23/2024 80 /min 148/80 mm[Hg] Not Available [facility] 0 06/23/2024 09:07:00 Date Recorded Heart rate Heart rate Systolic And Diastolic Systolic And Diastolic Provider Name and Address Organization Details Last Updated DateTime 06/25/2024 71 /min 74 /min 164/82 mm[Hg] 159/82 mm[Hg] Not Available [facility] 06/25/2024 18:15:55 Date Recorded Heart rate Systolic And Diastolic Provider Name and Address Organization Details Last Updated DateTime 06/27/2024 67 /min 133/69 mm[Hg] Not Available [facility] 0 06/27/2024 09:15:14 Date Recorded Heart rate Systolic And Diastolic Provider Name and Address Organization Details Last Updated DateTime 06/30/2024 66 /min 127/74 mm[Hg] Not Available [facility] 0 06/30/2024 12:35:25 Date Recorded Heart rate Systolic And Diastolic Provider Name and Address Organization Details Last Updated DateTime 07/02/2024 66 /min 144/74 mm[Hg] Not Available [facility] 0 07/02/2024 08:47:37 Date Recorded Heart rate Systolic And Diastolic Provider Name and Address Organization Details Last Updated DateTime 07/04/2024 64 /min 132/78 mm[Hg] Not Available [facility] 0 07/04/2024 10:50:34 Date Recorded Body height Body mass index (BMI) Body weight Heart rate Oxygen saturation Systolic And Diastolic Provider Name and Address Organization Details Last Updated DateTime 172.09 cm 36.2 kg/m2 722163. 52 g 90 /min 96 % 116/80 mm[Hg] Chica [place] - [facility] 11:04:38 Date Recorded Heart rate Systolic And Diastolic Provider Name and Address Organization Details Last Updated DateTime 07/10/2024 67 /min 129/68 mm[Hg] Not Available [facility] 0 07/10/2024 09:34:31 Date Recorded Heart rate Systolic And Diastolic Provider Name and Address Organization Details Last Updated DateTime 07/14/2024 71 /min 127/74 mm[Hg] Not Available [facility] 0 07/14/2024 08:51:01 Date Recorded Heart rate Systolic And Diastolic Provider Name and Address Organization Details Last Updated DateTime 07/16/2024 69 /min 135/71 mm[Hg] Not Available [facility] 0 07/16/2024 10:07:47 Date Recorded Heart rate Systolic And Diastolic Provider Name and Address Organization Details Last Updated DateTime 07/18/2024 68 /min 136/67 mm[Hg] Not Available [facility] 0 07/18/2024 18:20:28 Date Recorded Heart rate Systolic And Diastolic Provider Name and Address Organization Details Last Updated DateTime 07/21/2024 62 /min 128/72 mm[Hg] Not Available [facility] 0 07/21/2024 12:27:23 Date Recorded Heart rate Systolic And Diastolic Provider Name and Address Organization Details Last Updated DateTime 07/23/2024 71 /min 132/68 mm[Hg] Not Available [facility] 0 07/23/2024 12:11:30 Date Recorded Heart rate Systolic And Diastolic Provider Name and Address Organization Details Last Updated DateTime 07/25/2024 77 /min 119/68 mm[Hg] Not Available [facility] 0 07/25/2024 10:06:16 Date Recorded Heart rate Systolic And Diastolic Provider Name and Address Organization Details Last Updated DateTime 07/28/2024 70 /min 105/62 mm[Hg] Not Available [facility] 0 07/28/2024 15:33:42 Date Recorded Heart rate Systolic And Diastolic Provider Name and Address Organization Details Last Updated DateTime 07/30/2024 77 /min 135/78 mm[Hg] Not Available [facility] 0 07/30/2024 16:40:25 Date Recorded Heart rate Systolic And Diastolic Provider Name and Address Organization Details Last Updated DateTime 08/01/2024 68 /min 119/65 mm[Hg] Not Available [facility] 0 08/01/2024 16:36:34 Date Recorded Heart rate Systolic And Diastolic Provider Name and Address Organization Details Last Updated DateTime 08/04/2024 95 /min 120/84 mm[Hg] Not Available [facility] 0 08/04/2024 16:15:27 Date Recorded Heart rate Systolic And Diastolic Provider Name and Address Organization Details Last Updated DateTime 08/06/2024 68 /min 129/69 mm[Hg] Not Available [facility] 0 08/06/2024 12:01:05 Date Recorded Heart rate Systolic And Diastolic Provider Name and Address Organization Details Last Updated DateTime 08/08/2024 69 /min 120/67 mm[Hg] Not Available [facility] 0 08/08/2024 10:21:38 Date Recorded Heart rate Systolic And Diastolic Provider Name and Address Organization Details Last Updated DateTime 08/11/2024 70 /min 129/75 mm[Hg] Not Available [facility] 0 08/11/2024 16:38:32 Date Recorded Heart rate Systolic And Diastolic Provider Name and Address Organization Details Last Updated DateTime 08/13/2024 94 /min 145/75 mm[Hg] Not Available [facility] 0 08/13/2024 17:15:24 Date Recorded Heart rate Systolic And Diastolic Provider Name and Address Organization Details Last Updated DateTime 08/15/2024 77 /min 122/71 mm[Hg] Not Available [facility] 0 08/15/2024 09:13:23 Date Recorded Heart rate Systolic And Diastolic Provider Name and Address Organization Details Last Updated DateTime 08/18/2024 76 /min 130/67 mm[Hg] Not Available [facility] 0 08/18/2024 18:48:14 Date Recorded Heart rate Systolic And Diastolic Provider Name and Address Organization Details Last Updated DateTime 08/20/2024 72 /min 120/70 mm[Hg] Not Available [facility] 0 08/20/2024 07:35:24 Date Recorded Heart rate Systolic And Diastolic Provider Name and Address Organization Details Last Updated DateTime 08/22/2024 76 /min 117/68 mm[Hg] Not Available [facility] 0 08/22/2024 07:39:38 Date Recorded Heart rate Systolic And Diastolic Provider Name and Address Organization Details Last Updated DateTime 08/25/2024 71 /min 116/72 mm[Hg] Not Available [facility] 0 08/25/2024 11:03:38 Date Recorded Heart rate Systolic And Diastolic Provider Name and Address Organization Details Last Updated DateTime 08/27/2024 65 /min 108/70 mm[Hg] Not Available [facility] 0 08/27/2024 17:46:08 Date Recorded Heart rate Systolic And Diastolic Provider Name and Address Organization Details Last Updated DateTime 08/29/2024 68 /min 102/65 mm[Hg] Not Available [facility] 0 08/29/2024 11:01:01 Date Recorded Heart rate Systolic And Diastolic Provider Name and Address Organization Details Last Updated DateTime 09/01/2024 80 /min 108/65 mm[Hg] Not Available [facility] 0 09/01/2024 16:24:15 Date Recorded Heart rate Systolic And Diastolic Provider Name and Address Organization Details Last Updated DateTime 09/03/2024 78 /min 116/68 mm[Hg] Not Available [facility] 0 09/03/2024 19:08:17 Date Recorded Heart rate Systolic And Diastolic Provider Name and Address Organization Details Last Updated DateTime 09/05/2024 68 /min 128/64 mm[Hg] Not Available [facility] 0 09/05/2024 11:03:22 Date Recorded Heart rate Systolic And Diastolic Provider Name and Address Organization Details Last Updated DateTime 09/08/2024 68 /min 118/71 mm[Hg] Not Available [facility] 0 09/08/2024 19:55:23 Date Recorded Heart rate Systolic And Diastolic Provider Name and Address Organization Details Last Updated DateTime 09/10/2024 76 /min 114/71 mm[Hg] Not Available [facility] 0 09/10/2024 09:12:23 Date Recorded Heart rate Systolic And Diastolic Provider Name and Address Organization Details Last Updated DateTime 09/12/2024 75 /min 110/61 mm[Hg] Not Available [facility] 0 09/12/2024 09:07:59 Date Recorded Heart rate Systolic And Diastolic Provider Name and Address Organization Details Last Updated DateTime 09/15/2024 68 /min 104/62 mm[Hg] Not Available [facility] 0 09/15/2024 09:00:26 Date Recorded Heart rate Systolic And Diastolic Provider Name and Address Organization Details Last Updated DateTime 09/17/2024 85 /min 123/70 mm[Hg] Not Available [facility] 0 09/17/2024 19:14:59 Date Recorded Heart rate Systolic And Diastolic Provider Name and Address Organization Details Last Updated DateTime 09/19/2024 76 /min 104/62 mm[Hg] Not Available [facility] 0 09/19/2024 10:01:11 Date Recorded Heart rate Systolic And Diastolic Provider Name and Address Organization Details Last Updated DateTime 09/22/2024 73 /min 124/68 mm[Hg] Not Available [facility] 0 09/22/2024 15:36:46 Date Recorded Heart rate Systolic And Diastolic Provider Name and Address Organization Details Last Updated DateTime 09/24/2024 76 /min 130/62 mm[Hg] Not Available [facility] 0 09/24/2024 15:48:57 Date Recorded Heart rate Systolic And Diastolic Provider Name and Address Organization Details Last Updated DateTime 09/26/2024 73 /min 111/60 mm[Hg] Not Available [facility] 0 09/26/2024 12:24:29 Date Recorded Heart rate Systolic And Diastolic Provider Name and Address Organization Details Last Updated DateTime 09/29/2024 71 /min 121/71 mm[Hg] Not Available [facility] 0 09/29/2024 17:36:05 Date Recorded Heart rate Systolic And Diastolic Provider Name and Address Organization Details Last Updated DateTime 10/03/2024 79 /min 106/56 mm[Hg] Not Available [facility] 0 10/03/2024 10:46:43 Date Recorded Body height Body mass index (BMI) Body weight Heart rate Oxygen saturation Systolic And Diastolic Provider Name and Address Organization Details Last Updated DateTime 172.09 cm 34.4 kg/m2 870149. 56 g 90 /min 96 % 138/84 mm[Hg] Earlene Sheppard [place] - [facility] 11:27:36 Date Recorded Heart rate Systolic And Diastolic Provider Name and Address Organization Details Last Updated DateTime 10/08/2024 79 /min 124/63 mm[Hg] Not Available [facility] 0 10/08/2024 09:03:56 Date Recorded Heart rate Systolic And Diastolic Provider Name and Address Organization Details Last Updated DateTime 10/10/2024 71 /min 100/68 mm[Hg] Not Available [facility] 0 10/10/2024 11:13:54 Date Recorded Heart rate Systolic And Diastolic Provider Name and Address Organization Details Last Updated DateTime 10/13/2024 73 /min 132/68 mm[Hg] Not Available [facility] 0 10/13/2024 16:40:20 Date Recorded Heart rate Systolic And Diastolic Provider Name and Address Organization Details Last Updated DateTime 10/15/2024 78 /min 121/68 mm[Hg] Not Available [facility] 0 10/15/2024 13:10:14 Date Recorded Heart rate Systolic And Diastolic Provider Name and Address Organization Details Last Updated DateTime 10/17/2024 72 /min 123/64 mm[Hg] Not Available [facility] 0 10/17/2024 12:58:14 Date Recorded Heart rate Systolic And Diastolic Provider Name and Address Organization Details Last Updated DateTime 10/20/2024 68 /min 123/59 mm[Hg] Not Available [facility] 0 10/20/2024 15:57:39 Date Recorded Heart rate Systolic And Diastolic Provider Name and Address Organization Details Last Updated DateTime 10/22/2024 76 /min 115/59 mm[Hg] Not Available [facility] 0 10/22/2024 12:48:47 Date Recorded Heart rate Systolic And Diastolic Provider Name and Address Organization Details Last Updated DateTime 10/27/2024 81 /min 126/64 mm[Hg] Not Available [facility] 0 10/27/2024 10:50:15 Date Recorded Heart rate Systolic And Diastolic Provider Name and Address Organization Details Last Updated DateTime 10/29/2024 72 /min 117/66 mm[Hg] Not Available [facility] 0 10/29/2024 10:59:11 Date Recorded Heart rate Systolic And Diastolic Provider Name and Address Organization Details Last Updated DateTime 11/03/2024 83 /min 139/71 mm[Hg] Not Available [facility] 0 11/03/2024 12:45:22 Date Recorded Heart rate Systolic And Diastolic Provider Name and Address Organization Details Last Updated DateTime 11/05/2024 75 /min 123/64 mm[Hg] Not Available [facility] 0 11/05/2024 18:07:18 Date Recorded Heart rate Systolic And Diastolic Provider Name and Address Organization Details Last Updated DateTime 2024 65 /min 120/68 mm[Hg] Not Available [facility] 0 2024 07:56:58 Date Recorded Heart rate Systolic And Diastolic Provider Name and Address Organization Details Last Updated DateTime 11/10/2024 86 /min 119/66 mm[Hg] Not Available [facility] 0 11/10/2024 15:13:23 Date Recorded Heart rate Systolic And Diastolic Provider Name and Address Organization Details Last Updated DateTime 11/12/2024 69 /min 132/69 mm[Hg] Not Available [facility] 0 11/12/2024 19:16:22 Date Recorded Heart rate Systolic And Diastolic Provider Name and Address Organization Details Last Updated DateTime 11/14/2024 74 /min 96/63 mm[Hg] Not Available [facility] 11:58:33 Date Recorded Heart rate Systolic And Diastolic Provider Name and Address Organization Details Last Updated DateTime 11/17/2024 64 /min 124/62 mm[Hg] Not Available [facility] 0 11/17/2024 21:39:30 Date Recorded Heart rate Systolic And Diastolic Provider Name and Address Organization Details Last Updated DateTime 11/19/2024 66 /min 132/73 mm[Hg] Not Available [facility] 0 11/19/2024 09:03:44 Date Recorded Heart rate Systolic And Diastolic Provider Name and Address Organization Details Last Updated DateTime 11/22/2024 72 /min 139/74 mm[Hg] Not Available [facility] 0 11/22/2024 18:33:11 Date Recorded Heart rate Systolic And Diastolic Provider Name and Address Organization Details Last Updated DateTime 11/24/2024 79 /min 116/63 mm[Hg] Not Available [facility] 0 11/24/2024 19:01:10 Date Recorded Heart rate Systolic And Diastolic Provider Name and Address Organization Details Last Updated DateTime 11/26/2024 87 /min 116/60 mm[Hg] Not Available [facility] 0 11/26/2024 14:01:59 Date Recorded Heart rate Systolic And Diastolic Provider Name and Address Organization Details Last Updated DateTime 11/28/2024 70 /min 120/54 mm[Hg] Not Available [facility] 0 11/28/2024 12:26:42 Date Recorded Heart rate Systolic And Diastolic Provider Name and Address Organization Details Last Updated DateTime 12/01/2024 84 /min 128/71 mm[Hg] Not Available [facility] 0 12/01/2024 19:03:05 Date Recorded Heart rate Systolic And Diastolic Provider Name and Address Organization Details Last Updated DateTime 12/03/2024 65 /min 110/60 mm[Hg] Not Available [facility] 0 12/03/2024 11:40:24 Date Recorded Heart rate Systolic And Diastolic Provider Name and Address Organization Details Last Updated DateTime 12/05/2024 70 /min 133/63 mm[Hg] Not Available [facility] 0 12/05/2024 17:40:20 Date Recorded Heart rate Systolic And Diastolic Provider Name and Address Organization Details Last Updated DateTime 12/08/2024 66 /min 112/72 mm[Hg] Not Available [facility] 0 12/08/2024 17:17:22 Date Recorded Heart rate Heart rate Systolic And Diastolic Systolic And Diastolic Provider Name and Address Organization Details Last Updated DateTime 12/12/2024 73 /min 67 /min 122/75 mm[Hg] 117/57 mm[Hg] Not Available [facility] 12/12/2024 16:17:33 Date Recorded Heart rate Systolic And Diastolic Provider Name and Address Organization Details Last Updated DateTime 12/15/2024 85 /min 106/66 mm[Hg] Not Available [facility] 0 12/15/2024 11:56:58 Date Recorded Body height Body mass index (BMI) Body weight Heart rate Oxygen saturation Systolic And Diastolic Provider Name and Address Organization Details Last Updated DateTime 172.09 cm 37.9 kg/m2 593650. 11 g 95 /min 97 % 138/72 mm[Hg] Tricia Mackay [place] - [facility] 11:31:10 Date Recorded Heart rate Systolic And Diastolic Provider Name and Address Organization Details Last Updated DateTime 12/18/2024 71 /min 115/69 mm[Hg] Not Available [facility] 0 12/18/2024 09:45:38 Date Recorded Heart rate Systolic And Diastolic Provider Name and Address Organization Details Last Updated DateTime 12/19/2024 76 /min 109/66 mm[Hg] Not Available [facility] 0 12/19/2024 10:04:42 Date Recorded Heart rate Systolic And Diastolic Provider Name and Address Organization Details Last Updated DateTime 12/22/2024 87 /min 122/60 mm[Hg] Not Available [facility] 0 12/22/2024 14:34:39 Date Recorded Heart rate Heart rate Systolic And Diastolic Provider Name and Address Organization Details Last Updated DateTime 12/24/2023 100 /min 87 /min 120/63 mm[Hg] Not Available [facility] 12/24/2023 12:22:11 Date Recorded Heart rate Heart rate Systolic And Diastolic Systolic And Diastolic Provider Name and Address Organization Details Last Updated DateTime 12/25/2023 80 /min 76 /min 153/77 mm[Hg] 152/75 mm[Hg] Not Available [facility] 12/26/2023 07:30:44 Date Recorded Heart rate Systolic And Diastolic Provider Name and Address Organization Details Last Updated DateTime 12/24/2024 69 /min 100/66 mm[Hg] Not Available [facility] 0 12/24/2024 17:33:39 Date Recorded Heart rate Systolic And Diastolic Provider Name and Address Organization Details Last Updated DateTime 12/26/2023 67 /min 156/84 mm[Hg] Not Available [facility] 0 12/26/2023 07:30:44 Date Recorded Heart rate Systolic And Diastolic Provider Name and Address Organization Details Last Updated DateTime 12/26/2024 82 /min 109/69 mm[Hg] Not Available [facility] 0 12/26/2024 09:51:11 Date Recorded Heart rate Heart rate Systolic And Diastolic Systolic And Diastolic Provider Name and Address Organization Details Last Updated DateTime 12/28/2023 64 /min 71 /min 168/77 mm[Hg] 165/77 mm[Hg] Not Available [facility] 12/28/2023 21:08:50 Date Recorded Heart rate Systolic And Diastolic Provider Name and Address Organization Details Last Updated DateTime 12/29/2024 90 /min 106/67 mm[Hg] Not Available [facility] 0 12/29/2024 14:47:33 Date Recorded Heart rate Systolic And Diastolic Provider Name and Address Organization Details Last Updated DateTime 12/31/2023 81 /min 159/79 mm[Hg] Not Available [facility] 0 12/31/2023 09:35:02 Date Recorded Heart rate Systolic And Diastolic Provider Name and Address Organization Details Last Updated DateTime 01/01/2025 75 /min 116/68 mm[Hg] Not Available [facility] 0 01/01/2025 10:29:10 Date Recorded Heart rate Systolic And Diastolic Provider Name and Address Organization Details Last Updated DateTime 01/03/2024 68 /min 152/79 mm[Hg] Not Available [facility] 0 01/03/2024 09:53:06 Date Recorded Heart rate Systolic And Diastolic Provider Name and Address Organization Details Last Updated DateTime 01/03/2025 67 /min 131/71 mm[Hg] Not Available [facility] 0 01/03/2025 15:36:27 Date Recorded Heart rate Systolic And Diastolic Provider Name and Address Organization Details Last Updated DateTime 01/05/2025 60 /min 142/69 mm[Hg] Not Available [facility] 0 01/05/2025 22:12:01 Date Recorded Heart rate Systolic And Diastolic Provider Name and Address Organization Details Last Updated DateTime 01/07/2024 89 /min 119/67 mm[Hg] Not Available [facility] 0 01/07/2024 09:22:16 Date Recorded Heart rate Heart rate Systolic And Diastolic Systolic And Diastolic Provider Name and Address Organization Details Last Updated DateTime 01/09/2024 68 /min 70 /min 174/90 mm[Hg] 156/80 mm[Hg] Not Available [facility] 01/09/2024 07:43:59 Date Recorded Heart rate Systolic And Diastolic Provider Name and Address Organization Details Last Updated DateTime 01/08/2025 80 /min 125/78 mm[Hg] Not Available [facility] 0 01/08/2025 17:46:27 Date Recorded Heart rate Systolic And Diastolic Provider Name and Address Organization Details Last Updated DateTime 01/11/2024 77 /min 125/71 mm[Hg] Not Available [facility] 0 01/11/2024 11:11:59 Date Recorded Body height Body mass index (BMI) Body weight Heart rate Oxygen saturation Systolic And Diastolic Provider Name and Address Organization Details Last Updated DateTime 172.09 cm 33.7 kg/m2 95335.3 2 g 95 /min 95 % 120/80 mm[Hg] Chica Salamanca [place] - [facility] 11:38:10 Date Recorded Heart rate Systolic And Diastolic Provider Name and Address Organization Details Last Updated DateTime 01/14/2024 73 /min 144/77 mm[Hg] Not Available [facility] 0 01/14/2024 09:30:19 Date Recorded Heart rate Systolic And Diastolic Provider Name and Address Organization Details Last Updated DateTime 01/14/2025 77 /min 108/64 mm[Hg] Not Available [facility] 0 01/14/2025 10:03:06 Date Recorded Heart rate Systolic And Diastolic Provider Name and Address Organization Details Last Updated DateTime 01/16/2024 72 /min 139/78 mm[Hg] Not Available [facility] 0 01/16/2024 09:36:16 Date Recorded Heart rate Systolic And Diastolic Provider Name and Address Organization Details Last Updated DateTime 01/16/2025 70 /min 131/69 mm[Hg] Not Available [facility] 0 01/16/2025 17:52:51 Date Recorded Heart rate Systolic And Diastolic Provider Name and Address Organization Details Last Updated DateTime 01/18/2024 77 /min 139/76 mm[Hg] Not Available [facility] 0 01/18/2024 09:40:54 Date Recorded Heart rate Systolic And Diastolic Provider Name and Address Organization Details Last Updated DateTime 01/21/2024 67 /min 128/79 mm[Hg] Not Available [facility] 0 01/21/2024 17:28:11 Date Recorded Heart rate Systolic And Diastolic Provider Name and Address Organization Details Last Updated DateTime 01/20/2025 85 /min 108/66 mm[Hg] Not Available [facility] 0 01/20/2025 10:30:21 Date Recorded Heart rate Systolic And Diastolic Provider Name and Address Organization Details Last Updated DateTime 01/23/2024 94 /min 142/78 mm[Hg] Not Available [facility] 0 01/23/2024 14:40:43 Date Recorded Heart rate Systolic And Diastolic Provider Name and Address Organization Details Last Updated DateTime 01/22/2025 72 /min 118/67 mm[Hg] Not Available [facility] 0 01/22/2025 15:31:58 Date Recorded Heart rate Systolic And Diastolic Provider Name and Address Organization Details Last Updated DateTime 01/23/2025 74 /min 108/63 mm[Hg] Not Available [facility] 0 01/23/2025 10:04:36 Date Recorded Heart rate Systolic And Diastolic Provider Name and Address Organization Details Last Updated DateTime 01/26/2025 69 /min 114/72 mm[Hg] Not Available [facility] 0 01/26/2025 16:08:31 Date Recorded Heart rate Systolic And Diastolic Provider Name and Address Organization Details Last Updated DateTime 01/28/2024 71 /min 140/75 mm[Hg] Not Available [facility] 0 01/28/2024 10:15:39 Date Recorded Heart rate Systolic And Diastolic Provider Name and Address Organization Details Last Updated DateTime 01/28/2025 80 /min 111/63 mm[Hg] Not Available [facility] 0 01/28/2025 11:34:41 Date Recorded Heart rate Systolic And Diastolic Provider Name and Address Organization Details Last Updated DateTime 01/30/2024 75 /min 126/68 mm[Hg] Not Available [facility] 0 01/30/2024 11:50:15 Date Recorded Heart rate Heart rate Systolic And Diastolic Systolic And Diastolic Provider Name and Address Organization Details Last Updated DateTime 01/31/2024 89 /min 99 /min 108/55 mm[Hg] 115/63 mm[Hg] Not Available [facility] 01/31/2024 10:24:59 Date Recorded Heart rate Systolic And Diastolic Provider Name and Address Organization Details Last Updated DateTime 02/01/2024 76 /min 129/79 mm[Hg] Not Available [facility] 0 02/01/2024 20:55:22 Date Recorded Heart rate Systolic And Diastolic Provider Name and Address Organization Details Last Updated DateTime 02/04/2024 94 /min 110/66 mm[Hg] Not Available [facility] 0 02/04/2024 14:21:53 Date Recorded Heart rate Systolic And Diastolic Provider Name and Address Organization Details Last Updated DateTime 02/06/2024 88 /min 129/69 mm[Hg] Not Available [facility] 0 02/06/2024 13:50:45 Date Recorded Heart rate Systolic And Diastolic Provider Name and Address Organization Details Last Updated DateTime 02/08/2024 79 /min 128/66 mm[Hg] Not Available [facility] 0 02/08/2024 09:31:05 Date Recorded Heart rate Systolic And Diastolic Provider Name and Address Organization Details Last Updated DateTime 02/09/2025 63 /min 118/63 mm[Hg] Not Available [facility] 0 02/09/2025 15:47:34 Date Recorded Heart rate Systolic And Diastolic Provider Name and Address Organization Details Last Updated DateTime 02/11/2024 67 /min 120/62 mm[Hg] Not Available [facility] 0 02/11/2024 11:28:51 Date Recorded Heart rate Systolic And Diastolic Provider Name and Address Organization Details Last Updated DateTime 02/11/2025 69 /min 113/69 mm[Hg] Not Available [facility] 0 02/11/2025 14:34:58 Date Recorded Heart rate Systolic And Diastolic Provider Name and Address Organization Details Last Updated DateTime 02/13/2024 100 /min 133/65 mm[Hg] Not Available [facility] 0 02/13/2024 14:54:34 Date Recorded Heart rate Systolic And Diastolic Provider Name and Address Organization Details Last Updated DateTime 02/13/2025 75 /min 120/68 mm[Hg] Not Available [facility] 0 02/13/2025 10:04:45 Date Recorded Heart rate Systolic And Diastolic Provider Name and Address Organization Details Last Updated DateTime 02/15/2024 88 /min 111/67 mm[Hg] Not Available [facility] 0 02/15/2024 13:25:36 Date Recorded Heart rate Systolic And Diastolic Provider Name and Address Organization Details Last Updated DateTime 02/16/2025 71 /min 115/71 mm[Hg] Not Available [facility] 0 02/16/2025 10:48:04 Date Recorded Heart rate Systolic And Diastolic Provider Name and Address Organization Details Last Updated DateTime 02/18/2024 89 /min 132/70 mm[Hg] Not Available [facility] 0 02/18/2024 14:30:37 Date Recorded Heart rate Systolic And Diastolic Provider Name and Address Organization Details Last Updated DateTime 02/18/2025 69 /min 116/62 mm[Hg] Not Available [facility] 1 10:22:19 Date Recorded Heart rate Systolic And Diastolic Provider Name and Address Organization Details Last Updated DateTime 02/20/2024 89 /min 123/67 mm[Hg] Not Available [facility] 1 08:57:26 Date Recorded Heart rate Systolic And Diastolic Provider Name and Address Organization Details Last Updated DateTime 02/20/2025 74 /min 116/72 mm[Hg] Not Available [facility] 1 10:21:14 Date Recorded Heart rate Systolic And Diastolic Provider Name and Address Organization Details Last Updated DateTime 02/22/2024 70 /min 124/66 mm[Hg] Not Available [facility] 1 07:22:32 Date Recorded Heart rate Systolic And Diastolic Provider Name and Address Organization Details Last Updated DateTime 02/23/2025 71 /min 112/64 mm[Hg] Not Available [facility] 1 15:23:41 Date Recorded Heart rate Systolic And Diastolic Provider Name and Address Organization Details Last Updated DateTime 02/25/2024 69 /min 120/69 mm[Hg] Not Available [facility] 1 12:09:12 Date Recorded Heart rate Systolic And Diastolic Provider Name and Address Organization Details Last Updated DateTime 02/25/2025 65 /min 115/70 mm[Hg] Not Available [facility] 1 18:31:27 Date Recorded Heart rate Systolic And Diastolic Provider Name and Address Organization Details Last Updated DateTime 02/27/2024 82 /min 144/70 mm[Hg] Not Available [facility] 1 08:24:58 Date Recorded Heart rate Systolic And Diastolic Provider Name and Address Organization Details Last Updated DateTime 02/27/2025 66 /min 110/70 mm[Hg] Not Available [facility] 1 12:31:17 Date Recorded Heart rate Systolic And Diastolic Provider Name and Address Organization Details Last Updated DateTime 02/29/2024 84 /min 128/83 mm[Hg] Not Available [facility] 1 10:22:17 Date Recorded Heart rate Systolic And Diastolic Provider Name and Address Organization Details Last Updated DateTime 03/02/2025 77 /min 133/68 mm[Hg] Not Available [facility] 1 13:17:33 Date Recorded Heart rate Systolic And Diastolic Provider Name and Address Organization Details Last Updated DateTime 03/03/2024 87 /min 112/76 mm[Hg] Not Available [facility] 1 12:36:59 Date Recorded Heart rate Systolic And Diastolic Provider Name and Address Organization Details Last Updated DateTime 03/05/2024 87 /min 138/68 mm[Hg] Not Available [facility] 1 09:18:14 Date Recorded Heart rate Systolic And Diastolic Provider Name and Address Organization Details Last Updated DateTime 03/06/2025 68 /min 116/65 mm[Hg] Not Available [facility] 1 14:42:54 Date Recorded Heart rate Systolic And Diastolic Provider Name and Address Organization Details Last Updated DateTime 03/07/2024 91 /min 126/68 mm[Hg] Not Available [facility] 1 12:55:16 Date Recorded Heart rate Systolic And Diastolic Provider Name and Address Organization Details Last Updated DateTime 03/09/2025 60 /min 124/53 mm[Hg] Not Available [facility] 1 14:18:27 Date Recorded Heart rate Systolic And Diastolic Provider Name and Address Organization Details Last Updated DateTime 03/10/2024 76 /min 120/65 mm[Hg] Not Available [facility] 1 17:26:41 Date Recorded Heart rate Systolic And Diastolic Provider Name and Address Organization Details Last Updated DateTime 03/11/2025 73 /min 123/69 mm[Hg] Not Available [facility] 1 14:46:22 Date Recorded Heart rate Systolic And Diastolic Provider Name and Address Organization Details Last Updated DateTime 03/13/2025 70 /min 125/66 mm[Hg] Not Available [facility] 1 16:57:00 Date Recorded Heart rate Systolic And Diastolic Provider Name and Address Organization Details Last Updated DateTime 03/14/2024 96 /min 155/67 mm[Hg] Not Available [facility] 1 09:19:30 Date Recorded Heart rate Systolic And Diastolic Provider Name and Address Organization Details Last Updated DateTime 03/17/2024 85 /min 149/71 mm[Hg] Not Available [facility] 1 10:51:55 Date Recorded Heart rate Systolic And Diastolic Provider Name and Address Organization Details Last Updated DateTime 03/19/2024 98 /min 108/67 mm[Hg] Not Available [facility] 1 13:39:13 Date Recorded Heart rate Systolic And Diastolic Provider Name and Address Organization Details Last Updated DateTime 03/21/2024 93 /min 123/57 mm[Hg] Not Available [facility] 1 05/21/2023 09:43:38 Date Recorded Heart rate Systolic And Diastolic Provider Name and Address Organization Details Last Updated DateTime 03/23/2025 75 /min 117/70 mm[Hg] Not Available [facility] 1 05/23/2024 17:59:17 Date Recorded Heart rate Systolic And Diastolic Provider Name and Address Organization Details Last Updated DateTime 03/24/2024 94 /min 141/70 mm[Hg] Not Available [facility] 1 05/24/2023 10:00:44 Date Recorded Heart rate Systolic And Diastolic Provider Name and Address Organization Details Last Updated DateTime 03/26/2024 79 /min 136/67 mm[Hg] Not Available [facility] 1 05/26/2023 16:47:29 Date Recorded Heart rate Systolic And Diastolic Provider Name and Address Organization Details Last Updated DateTime 03/27/2025 71 /min 118/65 mm[Hg] Not Available [facility] 1 05/27/2024 09:11:21 Date Recorded Heart rate Systolic And Diastolic Provider Name and Address Organization Details Last Updated DateTime 03/28/2024 85 /min 145/67 mm[Hg] Not Available [facility] 1 05/28/2023 16:17:03 Date Recorded Heart rate Systolic And Diastolic Provider Name and Address Organization Details Last Updated DateTime 03/30/2025 73 /min 113/68 mm[Hg] Not Available [facility] 1 05/30/2024 13:25:47 Date Recorded Heart rate Systolic And Diastolic Provider Name and Address Organization Details Last Updated DateTime 04/01/2024 89 /min 114/66 mm[Hg] Not Available [facility] 1 06/01/2023 10:31:59 Date Recorded Heart rate Systolic And Diastolic Provider Name and Address Organization Details Last Updated DateTime 04/02/2025 72 /min 96/59 mm[Hg] Not Available [facility] 09:12:59 Date Recorded Heart rate Heart rate Systolic And Diastolic Systolic And Diastolic Provider Name and Address Organization Details Last Updated DateTime 04/04/2025 79 /min 73 /min 146/78 mm[Hg] 124/76 mm[Hg] Not Available [facility] 04/04/2025 14:20:16 Date Recorded Heart rate Systolic And Diastolic Provider Name and Address Organization Details Last Updated DateTime 04/06/2025 60 /min 134/71 mm[Hg] Not Available [facility] 1 06/06/2024 17:39:54 Date Recorded Body height Body mass index (BMI) Body weight Heart rate Oxygen saturation Systolic And Diastolic Provider Name and Address Organization Details Last Updated DateTime 172.09 cm 37.5 kg/m2 627488. 49 g 95 /min 96 % 122/68 mm[Hg] Tricia Mackay MA [place] - [facility] 4 10:23:10 Date Recorded Heart rate Systolic And Diastolic Provider Name and Address Organization Details Last Updated DateTime 04/08/2025 81 /min 108/75 mm[Hg] Not Available [facility] 1 06/08/2024 19:19:20 Date Recorded Heart rate Systolic And Diastolic Provider Name and Address Organization Details Last Updated DateTime 04/11/2024 58 /min 134/75 mm[Hg] Not Available [facility] 1 06/11/2023 12:03:30 Date Recorded Heart rate Systolic And Diastolic Provider Name and Address Organization Details Last Updated DateTime 04/13/2025 81 /min 124/69 mm[Hg] Not Available [facility] 1 06/13/2024 11:39:06 Date Recorded Heart rate Systolic And Diastolic Provider Name and Address Organization Details Last Updated DateTime 04/14/2024 71 /min 127/70 mm[Hg] Not Available [facility] 1 06/14/2023 08:15:11 Date Recorded Heart rate Systolic And Diastolic Provider Name and Address Organization Details Last Updated DateTime 04/15/2025 84 /min 108/70 mm[Hg] Not Available [facility] 1 06/15/2024 14:06:01 Date Recorded Heart rate Systolic And Diastolic Provider Name and Address Organization Details Last Updated DateTime 04/20/2025 71 /min 126/79 mm[Hg] Not Available [facility] 1 06/21/2024 18:45:27 Date Recorded Heart rate Systolic And Diastolic Provider Name and Address Organization Details Last Updated DateTime 04/21/2024 88 /min 123/64 mm[Hg] Not Available [facility] 1 06/22/2023 09:48:24 Date Recorded Heart rate Systolic And Diastolic Provider Name and Address Organization Details Last Updated DateTime 04/22/2025 79 /min 102/64 mm[Hg] Not Available [facility] 1 06/23/2024 10:23:58 Date Recorded Heart rate Systolic And Diastolic Provider Name and Address Organization Details Last Updated DateTime 04/23/2024 79 /min 132/75 mm[Hg] Not Available [facility] 1 06/24/2023 10:21:49 Date Recorded Heart rate Systolic And Diastolic Provider Name and Address Organization Details Last Updated DateTime 04/24/2025 64 /min 130/67 mm[Hg] Not Available [facility] 1 06/25/2024 19:10:41 Date Recorded Heart rate Systolic And Diastolic Provider Name and Address Organization Details Last Updated DateTime 04/25/2024 94 /min 151/77 mm[Hg] Not Available [facility] 1 06/26/2023 09:18:44 Date Recorded Heart rate Systolic And Diastolic Provider Name and Address Organization Details Last Updated DateTime 04/27/2025 63 /min 124/68 mm[Hg] Not Available [facility] 1 06/28/2024 12:35:07 Date Recorded Heart rate Systolic And Diastolic Provider Name and Address Organization Details Last Updated DateTime 04/28/2024 64 /min 120/62 mm[Hg] Not Available [facility] 1 06/29/2023 07:58:22 Date Recorded Heart rate Systolic And Diastolic Provider Name and Address Organization Details Last Updated DateTime 04/29/2025 68 /min 122/66 mm[Hg] Not Available [facility] 1 06/30/2024 13:26:47 Date Recorded Heart rate Systolic And Diastolic Provider Name and Address Organization Details Last Updated DateTime 04/30/2024 85 /min 131/68 mm[Hg] Not Available [facility] 1 07/01/2023 08:17:49 Date Recorded Heart rate Systolic And Diastolic Provider Name and Address Organization Details Last Updated DateTime 05/02/2024 64 /min 128/64 mm[Hg] Not Available [facility] 1 07/03/2023 10:31:41 Date Recorded Heart rate Systolic And Diastolic Provider Name and Address Organization Details Last Updated DateTime 05/02/2025 64 /min 132/72 mm[Hg] Not Available [facility] 1 07/03/2024 17:53:55 Date Recorded Heart rate Systolic And Diastolic Provider Name and Address Organization Details Last Updated DateTime 05/04/2025 62 /min 134/68 mm[Hg] Not Available [facility] 1 07/05/2024 10:50:37 Date Recorded Heart rate Systolic And Diastolic Provider Name and Address Organization Details Last Updated DateTime 05/05/2024 85 /min 143/73 mm[Hg] Not Available [facility] 1 07/06/2023 16:15:10 Date Recorded Heart rate Systolic And Diastolic Provider Name and Address Organization Details Last Updated DateTime 05/06/2025 70 /min 130/70 mm[Hg] Not Available [facility] 1 07/07/2024 16:34:05 Date Recorded Heart rate Systolic And Diastolic Provider Name and Address Organization Details Last Updated DateTime 05/07/2024 77 /min 141/69 mm[Hg] Not Available [facility] 1 07/08/2023 18:19:44 Date Recorded Heart rate Systolic And Diastolic Provider Name and Address Organization Details Last Updated DateTime 05/12/2024 88 /min 144/72 mm[Hg] Not Available [facility] 1 07/13/2023 23:12:31 Date Recorded Heart rate Systolic And Diastolic Provider Name and Address Organization Details Last Updated DateTime 05/14/2024 66 /min 139/72 mm[Hg] Not Available [facility] 1 07/15/2023 10:47:06 Date Recorded Heart rate Systolic And Diastolic Provider Name and Address Organization Details Last Updated DateTime 05/16/2024 68 /min 127/72 mm[Hg] Not Available [facility] 1 07/17/2023 18:16:05 Date Recorded Heart rate Systolic And Diastolic Provider Name and Address Organization Details Last Updated DateTime 05/19/2024 83 /min 134/73 mm[Hg] Not Available [facility] 1 09:49:33 Social History Question Answer Notes LastModified by Organizat ion Details LastModified Time Tobacco Smoking Status Never Smoker Eric Weeks MA [facility], [place] - [facility] 08/16/2023 10:18:10 Do You Have An Advance Directive? Yes Information n ot available 08/16/2023 Are You Blind Or Do You Have Difficulty Seeing? No Information n ot available 08/16/2023 What Is Your Level Of Caffeine Consumption? Occasional Information not available 08/16/2023 In The 14 Days Before Symptom Onset, Have You Had Close Contact With A Laboratory-confirm ed COVID-19 While That Case Was Ill? No Information n ot available 07/07/2024 In The 14 Days Before Symptom Onset, Have You Had Close Contact With A Person Who Is Under Investigation For COVID-19 While That Person Was Ill? No Information not available 07/07/2024 Have You Been To An Area Known To Be High Risk For COVID-19? No Information not available 07/07/2024 Are You Deaf Or Do You Have Serious Difficulty Hearing? No Information not available 08/16/2023 What Type Of Diet Are You Following? REGULAR Information n ot available 08/16/2023 What Was The Date Of Your Most Recent Tobacco Screening? 01/12/2025 Information not available 01/12/2025 What Is Your Relationship Status? Information not available 08/16/2023 Do You Use Your Seat Belt Or Car Seat Routinely? Yes Information not available 08/16/2023 Do You Have Smoke And Carbon Monoxide Detectors In Your Home? Yes Information not available 08/16/2023 Do You Use Sunscreen Routinely? Yes Information not available 08/16/2023 Has Tobacco Cessation Counseling Been Provided? No Information not available 08/16/2023 Sex: Female Functional Status Question Answer Note LastModified by Organizat ion Details LastModified Time Do you use any illicit or recreational drugs? No Information not available 08/16/2023 Do you or have you ever used any other forms of tobacco or nicotine? No Information not available 08/16/2023 What is your level of alcohol consumption? Occasional Information not available 08/16/2023 Are you able to care for yourself independently? Yes Information not available 08/16/2023 What is your exercise level? Occasional Information not available 08/16/2023 Mental Status Question Answer Note LastModified by Organization D etails LastModified Time Do you feel stressed (tense, restless, nervous, or anxious, or unable to sleep at night)? [id number] Information not available 08/16/2023 Family History Relationship Description Onset Age of this Age Resolved Age Notes LastModified by Organization Details LastModified Time Father Malignant neoplasm of prostate bandersonma Not available 07/20 10:17:13 Maternal Grandfather Malignant neoplasm of colon bandersonma Not available 07/20 10:17:40 Maternal Grandmother Malignant neoplasm of colon bandersonma Not available 07/20 10:17:40 Maternal Uncle Malignant neoplasm of colon bandersonma Not available 07/20 10:17:40 Mother Malignant neoplasm of lung bandersonma Not available 07/20 10:17:50 Medical History Condition Response Coronary Artery Disease N Other N High Blood Pressure Y Atrial Fibrillation N Thyroid Problems N Kidney or Bladder Problems N GI Problems N Depression N COPD N Blood Clots N Skin Problems N Anemia N Heart Attack (RI) N Anxiety Disorder Y Diabetes N Muscle, Joint, or Bone Problems N Seizures/Epilepsy N Acid Reflux (GERD) Y Cancer N Stroke N Asthma N Allergies N High Cholesterol N Hepatitis N Liver Disease N Headaches N Osteoporosis N Heart Failure N Gynecological HistoryNo gynecological history recorded. Obstetrics History GPAL:G 0 P 0 0 0 0 Immunizations Vaccine Type Date Status Note Provider Nam e and Address Organization Details Recorded Time Influenza, split virus, quadrivalent, preservative 9 completed ELENA Gould, [place] - [facility] 12/18/2023 16:33:33 Influenza, MDCK, quadrivalent, PF 3 completed ELENA [place], [place] [facility] 12/18/2023 16:33:34 COVID-19, mRNA, LNP-S, PF, 30 mcg/0.3 mL dose 1 ELENA Phan, [place] - [facility] 12/18/2023 16:33:34 COVID-19, mRNA, LNP-S, PF, 30 mcg/0.3 mL dose 1 completed ELENA [place], [place] [facility] 12/18/2023 16:33:34 COVID-19, mRNA, LNP-S, PF, 30 mcg/0.3 mL dose 1 ELENA Phan, [place] - [facility] 12/18/2023 16:33:34 COVID-19, mRNA, LNP-S, PF, shad-sucrose, 30 mcg/0.3 mL 3 completed Eric Weeks E[place] null, [place] - [facility] 12/18/2023 16:33:34 Tdap 7 completed Eric Weeks MA alyssa, [place] - [facility] 12/18/2023 16:33:34 Influenza, split virus, quadrivalent, PF 1 completed Eric Weeks [place] null, [place] [facility] 12/18/2023 16:33:34 Influenza, split virus, quadrivalent, PF 8 completed Eric Weeks [place], [place] [facility] 12/18/2023 16:33:34 Influenza, split virus, quadrivalent, PF 2 completed ELENA Gould, [place] [facility] 12/18/2023 16:33:34 Influenza, split virus, trivalent, preservative 4 completed Olivia Butler MD Attn: Accounting[address] [place], [address], [facility] [place] 04/20/2024 15:40:09 Pneumococcal conjugate PCV20, polysaccharide SWA134 conjugate, adjuvant, PF 5 completed Olivia Butler MD Attn: Accounting[address] [place], [address], [facility] [place] 07/21/2024 20:40:22 Past Encounters Encounter ID Performer Location Encounter Start Date Encounter Closed Date Diagnosis/Indication Diagnosis SNOMED-CT Code Diagnosis ICD10 Code Diagnosis IMO Codes Diagnosis Note [id number] Olivia Butler MD [facility] [place] [address] [place] [address] 08/16/2023 10:02:10 08/16/2023 11:02:15 Essential hypertension 82728447 I10 Hyperlipidemia 66437014 E78.5 Anxiety 97373253 F41.9 Cough 85105488 R05.9 Gastroesop hageal reflux disease without esophagitis 353355856 K21.9 [id number] Olivia Butler MD [facility] [place] [employer] [facility] - [place] [address] [place] [address] 12/10/2023 10:09:06 12/10/2023 11:11:54 Obesity 354936878 E66.8 Essential hypertension 98531689 I10 Anxiety 67686455 F41.9 Hyperlipidemia 33191661 E78.5 Gastroesop hageal reflux disease without esophagitis 480637709 K21.9 [id number] Olivia Butler MD [facility] [address] [place] [address] 12/19/2023 11:21:14 12/19/2023 12:06:23 Obesity 849553742 E66.8 Infection of sebaceous cyst 409005771 L72.3 [id number] Olivia Butler MD [facility] [place] [employer] - [place] [address] [place] [address] 04/07/2024 10:11:24 04/07/2024 11:23:43 Obesity 843976886 E66.9 Essential hypertension 84359288 I10 Hyperlipidemia 56598514 E78.5 Diabetes m ellitus screening 669266557 Z13.1 Administra tion of influenza vaccine 39118805 Z23 HIV screen ing declined 0660974452 94996 Z53.20 [id number] Olivia Butler MD [facility] [place] [employer] - [place] [address] [place] [address] 07/07/2024 10:49:59 07/07/2024 11:44:40 Body mass index 30+ - obesity 153309181 Z68.36 Obesity 785305438 E66.9 Administra tion of pneumococcal vaccine 26880505 Z23 Essential hypertension 83125877 I10 Hyperlipidemia 67095502 E78.5 Anxiety 36738179 F41.9 Gastroesop hageal reflux disease without esophagitis 297310677 K21.9 Prediabetes 751144687 R7 3.03 [id number] Olivia Butler MD [facility] [place] [employer] - [place] [address] [place] [address] 10/06/2024 11:15:14 10/06/2024 12:08:17 Body mass index 30+ - obesity 496414817 Z68.34 632418 Obesity ca used by energy imbalance 798875611 E66.811 E66.09 Z68.34 83754216 Essential hypertension 46872850 I10 Gastroesop hageal reflux disease without esophagitis 776001472 K21.9 Prediabetes 836185020 R7 3.03 Hyperlipidemia 18575217 E78.5 Anxiety 13038227 F41.9 [id number] Olivia Butler MD [facility] [place] [facility] [place] [address] [place] [address] 01/12/2025 11:03:42 01/12/2025 12:22:59 Body mass index 30+ - obesity 899551553 Z68.33 462341 Obese class I 3390076178 71913 E66.811 E66.3 2307165702 Prediabetes 547852202 R7 3.03 Essential hypertension 18195528 I10 Hyperlipidemia 67624427 E78.5 Anxiety 18933736 F41.9 Gastroesop hageal reflux disease without esophagitis 810681010 K21.9 Health Concerns Section Related Observation LastModified by Organization Detai ls LastModified Time None Recorded Concern Status LastModified by Organization Details LastModified Time None Recorded Advance Directives Directive Y: Payers Insurance Date Sequence Insurance Name Policy Number Policy Weems Covered Member ID Weems Member ID Guarantor Name 01/20/2025 1 [employer] (MEDICARE REPLACEMENT /ADVANTAGE - PPO) [id number] Steffi Villarreal Kim [id number] Steffi Kim 01/12/2025 1 [employer] (EPO) [id number] Fawad Kim [id number] [place] Kim Notes Date Note Type Note Provider Name and Address Organization Details Recorded Time 12/19/2023 text/html is going to cyst on her back no fever no chill Olivia Butler MD Attn: Accounting[address] [place], [address], [facility] [place] 12/21/2023 21:54:30 04/07/2024 text/html hypertension no headache or dizziness. Anxiety is doing a little bit better. GERD no nausea vomiting or heartburn. Hyperlipidemia she could do better with the diet. No history of any cancers in the family consistent with multiple endocrine neoplasia or thyroid Olivia Butler MD Attn: Accounting,[address], [place], [address], [place] [facility] 04/20/2024 15:43:10 07/07/2024 text/html blood pressure today looks good she does have some readings at home that are she was on remote patient monitoring program for hypertension. Hyperlipidemia does try to watch her diet. Anxiety is high lots of stress at home GERD no nausea no vomiting. Prediabetes needs to watch her diet Olivia Butler MD Attn: Accounting, [address] , [place], [address], [place] [facility] 07/21/2024 20:43:55 10/06/2024 text/html Diarrhea has resolved her blood pressure is doing better GERD no nausea or vomiting prediabetes watching her sweets and trying to get more active dyslipidemia does try to follow a low-fat diet and take her medications every day. Anxiety has been stable arthritic complaints are doing fine she is off the GLP 1 Olivia Butler MD Attn: Accounting, [address] , [place], [address], [place] [facility] 10/06/2024 13:45:35 01/12/2025 text/html Follow up if problems prediabetes needs blood work to see how she is doing hypertension no headache dizziness numbers have been looking good hyperlipidemia does try to watch her diet anxiety has been stable GERD that has not been any breakthrough symptoms her arthritis seems to be doing fine Olivia Butler MD Attn: Accounting[address] , [place], [address], [place] [facility] 01/18/2025 23:01:20 OBGyn Episode No OBEpisode recorded.
--- OUTSIDE RECORDS SUMMARY | 2025-05-08 01:07 | XMS_ITS | Clinical Summary ---
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 Name Role Phone Unavailable Primary Care Provider Unavailabl e Social History Tobacco Use Types Packs/Day Years Used Date Smoking Tobacco: Never Assessed Comments Unknown Sex and Gender Information Value Date Recorded Sex Assigned at Not on file Legal Sex Female 7:40 PM CDT Gender Identity Not on file Sexual Orientation Not on file Plan of Treatment Health Maintenance Due Date Last Done Comments Colorectal Cancer Screening Colonoscopy (10 Years) 1960 Hepatitis C 11/06/1977 DTaP, Tdap and Td Vaccines ( 1 - Tdap) 11/06/1978 Mammogram Screening 1999 Pneumococcal Vaccine: 50+ Ye ars (1 of 1 - PCV) 11/06/2009 Zoster Vaccines (1 of 2) 11/06/2009 Dexa Scan (General) 11/06/2024 COVID-19 Vaccine ( - 2024-2 6 season) 2025 Influenza Adult (#1) 2025 RSV Immunization or 60+ Years (1 - 1-dose 75+ series) 11/06/2034 Hepatitis A Vaccines Aged Out No long er eligible based on patient's age to complete this topic Meningococcal B Vaccine Aged Out No l onger eligible based on patient's age to complete this topic Meningococcal Vaccine Aged Out No corry suzie eligible based on patient's age to complete this topic RSV Immunizations Under 20 Months Aged Out No longer eligible based on patient's age to complete this topic
[2025-05-08 10:10] VITALS: BP 137/70; PULSE 86; RESP 18; TEMP 36.6; O2SAT 100
[2025-05-08 10:11] VITALS: BMI 34.0
[2025-05-08] MEDS: LACTATED RINGERS 1,000 ML 150 ML IV CONT (10:19)
--- NOTE | 2025-05-08 11:07 | WPDANESEPPF ---
Anes - Initial Pre Proc Eval Procedure: Operation Date: 05/08/25 11:30 Proposed Procedures p Screening Colonoscopy - Kendell Cornell MD Date/Time: 05/08/25 11:07 Surgeon: Kendell Cornell MD Pre Op Diagnosis: positive cologuard/screening Patient Data Age: 64 Gender: F Height: 1.7 m Weight: 98.5 kg Last Vital Signs Temp 97.9 F 05/08/25 10:10 Pulse 86 05/08/25 10:10 Resp 18 05/08/25 10:10 BP 137/70 05/08/25 10:10 Pulse Ox 100 05/08/25 10:10 O2 Del Method Room Air 05/08/25 10:10 Allergies Allergy/AdvReac Type Severity Reaction Status Date / Time Penicillins Allergy Mild RASH Verified 05/08/25 10:09 Sulfa (Sulfonamide Allergy Mild HIVES Verified 05/08/25 10:09 Antibiotics) Home Medications ?Medication ?Instructions ?Recorded ?Confirmed ?Type bupropion HCl 150 mg 24 hr tablet, 150 mg PO BID 12/20/23 05/08/25 History extended release cholecalciferol (vitamin D3) 25 25 mcg PO DAILY 12/20/23 05/08/25 History mcg (1,000 unit) capsule multivitamin 1 tablet PO DAILY 12/20/23 05/08/25 History nifedipine 30 mg tablet,extended 30 mg PO DAILY 12/20/23 05/08/25 History release sertraline 100 mg tablet 100 mg PO DAILY 12/20/23 05/08/25 History chlorthalidone 25 mg tablet 25 mg PO DAILY 01/22/24 05/08/25 History atorvastatin 10 mg tablet (Lipitor) 10 mg PO DAILY 10/16/24 05/08/25 History carvedilol 6.25 mg tablet 6.25 mg PO BID 10/16/24 05/08/25 History potassium 99 mg tablet 99 mg PO DAILY 10/16/24 05/08/25 History semaglutide (weight loss) 0.25 0.25 mg subcut WEEKLY 10/16/24 05/08/25 History mg/0.5 mL subcutaneous pen injector (Wegovy) famotidine 20 mg tablet 20 mg PO DAILY 04/22/25 05/08/25 History Patient hx anesthesia problems: none Family hx anesthesia problems: none Results Review: All pre-operative results and documents have been reviewed as part of the pre-operative evaluation. [facility] Past Medical History Medical History Hypertension GERD (gastroesophageal reflux disease) Anxiety Allergies Surgical History Surgical History History of excision of epidermal inclusion cyst 01/14/2024 - excision back cyst History of left knee replacement 2018 Family History Family History Other Cancer Heart disease Social History Social History Smoking status: Never smoker Second hand tobacco smoke exposure: No Alcohol intake: never Alcohol use details: 1 a month Substance use: never Substance use type: does not use Lack of Transportation: No Lack of Food: Never True Current Housing: I Have Housing Concerned About Future Housing: No Difficulty Paying Gas/Electric Bills: No Difficulty Paying for Meds: No Currently Unemployed: No Education: Trade/Vocational Certificate Difficulty w/ Childcare or Family Care: No Living arrangements: with family Additional living arrangements comments: ([place]) Spiritual care concerns: No Anes - Eval Final PreProcedure Day of Procedure 05/08/25 11:07 Patient weight: obese Lungs: normal air movement Airway: Mallampati scale class II Neurological: alert and oriented Last oral intake: >/= 8 hours ASA classification: III Emergent: no Anesthetic plan: proceed Anesthesia type and monitoring: general GIVS and standard monitoring Results Review: All pre-operative results and documents have been reviewed as part of the pre-operative evaluation. HTN, hyperlipidemia, CK on CPAP, active without cp or sob. Informed Consent: The patient's anesthetic plan and its attendant risks and benefits were discussed with the patient/family/POA. Questions were solicited and answers provided to the satisfaction of the patient/family/POA.
--- NOTE | 2025-05-08 11:12 | PM.HPGS ---
History of Present Illness History of Present Illness Consent: Risks, benefits, and alternatives have been discussed and questions answered. Patient agrees to proceed with procedure. Chief complaint: positive cologuard/screening Narrative: Steffi Kim is a 64 year old female with + cologuard, had colonoscopy but years ago Review of Systems Review of Systems: All systems reviewed & are unremarkable except as noted in HPI and below PMFSH Past Medical History Medical History (Updated 05/08/25 @ 11:13 by Kendell Cornell MD) Positive colorectal cancer screening using Cologuard test Hypertension GERD (gastroesophageal reflux disease) Anxiety Allergies Surgical History Surgical History History of excision of epidermal inclusion cyst 01/14/2024 - excision back cyst History of left knee replacement 2017 Family History Family History Other Cancer Heart disease Social History Social History Smoking status: Never smoker Second hand tobacco smoke exposure: No Alcohol intake: never Alcohol use details: 1 a month Substance use: never Substance use type: does not use Lack of Transportation: No Lack of Food: Never True Current Housing: I Have Housing Concerned About Future Housing: No Difficulty Paying Gas/Electric Bills: No Difficulty Paying for Meds: No Currently Unemployed: No Education: Trade/Vocational Certificate Difficulty w/ Childcare or Family Care: No Living arrangements: with family Additional living arrangements comments: ([place]) Spiritual care concerns: No Meds Home Medications and Allergies Home Medications ?Medication ?Instructions ?Recorded ?Confirmed ?Type bupropion HCl 150 mg 24 hr tablet, 150 mg PO BID 12/20/23 05/08/25 History extended release cholecalciferol (vitamin D3) 25 25 mcg PO DAILY 12/20/23 05/08/25 History mcg (1,000 unit) capsule multivitamin 1 tablet PO DAILY 12/20/23 05/08/25 History nifedipine 30 mg tablet,extended 30 mg PO DAILY 12/20/23 05/08/25 History release sertraline 100 mg tablet 100 mg PO DAILY 12/20/23 05/08/25 History chlorthalidone 25 mg tablet 25 mg PO DAILY 01/22/24 05/08/25 History atorvastatin 10 mg tablet (Lipitor) 10 mg PO DAILY 10/16/24 05/08/25 History carvedilol 6.25 mg tablet 6.25 mg PO BID 10/16/24 05/08/25 History potassium 99 mg tablet 99 mg PO DAILY 10/16/24 05/08/25 History semaglutide (weight loss) 0.25 0.25 mg subcut WEEKLY 10/16/24 05/08/25 History mg/0.5 mL subcutaneous pen injector (Wegovy) famotidine 20 mg tablet 20 mg PO DAILY 04/22/25 05/08/25 History Allergies Allergy/AdvReac Type Severity Reaction Status Date / Time Penicillins Allergy Mild RASH Verified 05/08/25 10:09 Sulfa (Sulfonamide Allergy Mild HIVES Verified 05/08/25 10:09 Antibiotics) Vital Signs Vital Signs - 24 hr 05/08/25 10:10 Temperature 97.9 F Pulse Rate 86 Respiratory Rate 18 Blood Pressure 137/70 Pulse Oximetry 100 Oxygen Delivery Room Air Exam Const: General: comfortable and no acute distress HENMT: Face/Nose/Sinus: Normal nares present Eyes: General: appearance normal, both eyes and all related structures Neck: Neck: no JVD Resp: Auscultation: clear to auscultation bilaterally Cardio: Rate: regular rate Rhythm: regular rhythm GI: Inspection: non-distended GI Palp: Yes Soft to palpation Skin: General skin exam: normal color Extrem: General: normal to inspection Psych: Mental Status: mental status grossly normal Assessment and Plan Assessment and plan (1) Positive colorectal cancer screening using Cologuard test: Code(s): R19.5 - Other fecal abnormalities Status: Acute Assessment and Plan: colonoscopy
--- NOTE | 2025-05-08 11:29 | S_PTH ---
PATIENT: Steffi Kim LOC: [facility]#:[id number] AGE/SX: 64/F ROOM: RE05/08/[address]: Kendell Cornell MD : 1960 BED: DIS: 05/08/2025 SPEC #: [id number] RECD: 05/08/25 13:38 STATUS: DEMETRIUS REMaureen #: [id number] AMBER: 05/08/25 11:[address]: Kendell Cornell DEPT: [facility] Surgical RECD BY: Mary Alice Ellsworth ENTERED: 05/08/25 13:39 SP TYPE: Surgical OTHR DR: Franklin ButlerMD Tissues: A - Colon Polypectomy B - Colon Polypectomy Procedures: Hematoxylin and Eosin Stain Gross and Microscopic Level 4
[2025-05-08 11:31] VITALS: BP 125/72; PULSE 71; RESP 20; O2SAT 99
[2025-05-08 11:41] VITALS: BP 120/71; PULSE 65; RESP 18; O2SAT 100
[2025-05-08 11:51] VITALS: BP 132/78; PULSE 64; RESP 18; O2SAT 100
== END 2025-05-08 11:59 | disposition home or self-care (01) ==
PROVIDERS: PCP Internal Medicine; Referring Provider Internal Medicine; Visit Provider Internal Medicine Gastroenterology
PROC: 0DJD8ZZ Inspection of Lower Intestinal Tract, Via Natural or Artificial Opening Endoscopic (ICD-10-PCS; CPT 45378; principal; 2025-05-08 11:30)
DX: R19.5 Other fecal abnormalities (principal); D12.3 Benign neoplasm of transverse colon; D12.4 Benign neoplasm of descending colon; K57.30 Diverticulosis of large intestine without perforation or abscess without bleeding; E78.5 Hyperlipidemia, unspecified; I10 Essential (primary) hypertension; K21.9 Gastro-esophageal reflux disease without esophagitis; G47.33 Obstructive sleep apnea (adult) (pediatric); F41.9 Anxiety disorder, unspecified; E66.9 Obesity, unspecified; Z68.34 Body mass index [BMI] 34.0-34.9, adult; Z79.85 Long-term (current) use of injectable non-insulin antidiabetic drugs; Z99.89 Dependence on other enabling machines and devices; Z98.890 Other specified postprocedural states; Z80.9 Family history of malignant neoplasm, unspecified; Z82.49 Family history of ischemic heart disease and other diseases of the circulatory system
CPT/HCPCS: 45385; 88305; J2003; J2704; J7120